=== PATIENT | male | born 1945 | race Caucasian/White ===

== ENCOUNTER 2017-01-02 09:53 | Emergency (ER) | payer MEDICARE, OTHER ==
--- NOTE | 2017-01-02 10:38 | ED ---
Abdominal Pain/Male - HPI Summary HPI Summary: Patient is a 71 yo M with a history of low back pain arrives with a CC of bilateral flank pain, back pain and head pain s/p mechanical fall this morning. He is accompanied by his 2 daughters. The fall was witnessed by his who states he hit his head. He also c/o bilateral flank pain which began on Tuesday. He was seen on Tuesday at his PCP office, who did not image the area , but gave shasha medication for penis infection. It is unclear if he had a UTI, but does not think so. He takes oxycodone daily at home and his pain is generally well controlled. His daughters state he has been "slower" lately and not able to ambulate well. Pain in bilateral kidneys was acute onset, constant and not worse with movement. C/o laceration to the back s/p fall this morning. Cardiac patient - Dr. Bermudez. CT 4 years ago and denies any chest pain or SOB today or recently. - History of Current Complaint Chief Complaint: EDGeneral Stated Complaint: FALL,BACK PAIN Time Seen by Provider: 01/02/17 10:19 Hx Obtained From: Patient Onset/Duration: Sudden Onset Timing: Constant Severity Initially: Moderate Severity Currently: Moderate Pain Intensity: 8 Pain Scale Used: 0-10 Numeric Location: Flank Radiates: Yes Radiates to: Inguinal Character: Sharp Aggravating Factor(s): Nothing Alleviating Factor(s): Nothing Associated Signs And Symptoms: Positive: Urinary Symptoms - Risk Factors Testicular Torsion: Negative Cardiac Risk Factors: Hypertension - Allergies/Home Medications Allergies/Adverse Reactions: Allergies Allergy/AdvReac Type Severity Reaction Status Date / Time Lisinopril Allergy Mild Itching Verified 01/02/17 10:03 Simvastatin [From Zocor] Allergy Unknown Verified 01/02/17 10:03 Reaction Details Home Medications: Home Medications Cyclobenzaprine TAB* [Flexeril 10 MG TAB*] 10 mg PO TID PRN 01/02/17 [History Confirmed 01/02/17] Furosemide TAB* [Lasix TAB*] 20 mg PO DAILY 01/02/17 [History Confirmed 01/02/17 ] metFORMIN* [Glucophage 500 MG TAB *] 500 mg PO DAILY 01/02/17 [History Confirmed 01/02/17] PMH/Surg Hx/FS Hx/Imm Hx Previously Healthy: Yes Endocrine/Hematology History: Reports: Hx Diabetes Denies: Hx Systemic Lupus Erythematosus Cardiovascular History: Reports: Hx Coronary Artery Disease, Hx Hypercholesterolemia, Hx Hypertension, Hx Myocardial Infarction Denies: Hx Congestive Heart Failure Respiratory History: Reports: Hx Pneumonia GI History: Reports: Other GI Disorders - umbilical hernia History: Denies: Hx Dialysis, Hx Renal Disease Musculoskeletal History: Denies: Hx Rheumatoid Arthritis Sensory History: Reports: Hx Contacts or Glasses - reading, Hx Hearing Problem - unable to hear some tones Opthamlomology History: Reports: Hx Contacts or Glasses - reading - Cancer History Hx Chemotherapy: No - Surgical History Surgery Procedure, Year, and Place: cardiac stent - Immunization History Hx Pertussis Vaccination: No Immunizations Up to Date: Unable to Obtain/Confirm Infectious Disease History: Yes Infectious Disease History: Denies: Traveled Outside the [place] in Last 30 Days - Social History Occupation: Unemployed, Retired Lives: With Family Alcohol Use: None Hx Substance Use: No Substance Use Type: Reports: None Hx Tobacco Use: Yes Smoking Status (MU): Current Every Day Smoker Type: Cigarettes Review of Systems Constitutional: Negative Negative: Fever, Chills, Fatigue, Skin Diaphoresis Eyes: Negative ENT: Negative Cardiovascular: Negative Positive: Other - bilateral flank pain Positive: dysuria, flank pain, hematuria Musculoskeletal: Negative Positive: Other - 2cm laceration to the right upper back Neurological: Negative All Other Systems Reviewed And Are Negative: Yes Physical Exam Triage Information Reviewed: Yes Vital Signs On Initial Exam: Initial Vitals Temp Pulse Resp BP Pulse Ox 97.6 F 79 16 118/58 95 01/02/17 10:03 01/02/17 10:03 01/02/17 10:03 01/02/17 10:03 01/02/17 10:03 Vital Signs Reviewed: Yes Appearance: Positive: Well-Nourished Skin: Positive: Skin Color Reflects Adequate Perfusion Head/Face: Positive: Normal Head/Face Inspection Eyes: Positive: EOMI, MARISA, Conjunctiva Clear Neck: Positive: Supple, No Lymphadenopathy Respiratory/Lung Sounds: Positive: Clear to Auscultation, Breath Sounds Present Cardiovascular: Positive: RRR Abdomen Description: Positive: Soft, Other: - CVA tenderness bilaterally Musculoskeletal: Positive: Strength/ROM Intact Neurological: Positive: Speech Normal Psychiatric: Positive: Normal AVPU Assessment: Alert Diagnostics - Vital Signs Vital Signs Temp Pulse Resp BP Pulse Ox 01/02/17 10:03 97.6 F 79 16 118/58 95 - Laboratory Result Diagrams: 01/02/17 11:14 01/02/17 11:14 Lab Statement: Any lab studies that have been ordered have been reviewed, and results considered in the medical decision making process. Abdominal Pain Fem Course/Dx - Course Course Of Treatment: Patient c/o bilateral flank pain, back pain and head pain s /p mechanical fall this morning. His daughters state he has been "slower" lately and not able to ambulate well. Pain in bilateral kidneys was acute onset , constant and not worse with movement. C/o laceration to the back s/p fall this morning. Cardiac patient - Dr. Bermudez. CT 4 years ago and denies any chest pain or SOB today or recently. He is evaluated for bilateral flank pain. Trop 0.01. CK elevated at 479. Notes to continuing pain despite his at home oxycodone. Possible decline in ambulation d/t increasing back pain without oxycodone helping. Patient on this medication for 30+ years. He is given an ambulatory challenge. Mag citrate given in ED. Patient is OK with discharge. On discharge, he appears to be walking very well and notes to feeling better per RN. - Diagnoses Differential Diagnosis/HQI/PQRI: Bowel Obstruction, Constipation, Urinary Tract Infection Provider Diagnoses: Constipation, Fall Discharge - Discharge Plan Condition: Stable Disposition: HOME Patient Education Materials: Fall Prevention (ED) Referrals: Robert Villarreal MD [Primary Care Provider] - Additional Instructions: Please follow up with your PCP within 1 week You may need to have a walker Mag citrate - 150mg - if no improvement, take another 150mg for relief. As discussed, you have a large amount of stool which may be causing some of the back pain
--- NOTE | 2017-01-02 11:14 | RAD ---
INDICATION: Trauma. COMPARISON: There are no prior studies available for comparison. TECHNIQUE: Contiguous axial sections of the brain were obtained from the skull base to the vertex without contrast. FINDINGS: The ventricles, cisterns and sulci are enlarged consistent with age-related atrophy. There are small areas of decreased density in the subcortical and periventricular white matter suggestive of mild chronic small vessel ischemic changes. No other focal abnormality or mass effect is seen. There is no evidence for hemorrhage. No significant focal osseous abnormality is seen. The visualized portion of the paranasal sinuses and mastoid air cells appear clear. IMPRESSION: 1. NO EVIDENCE FOR ACUTE INTRACRANIAL ABNORMALITY. 2. FINDINGS SUGGESTIVE OF MILD CHRONIC SMALL VESSEL ISCHEMIC CHANGES.
--- NOTE | 2017-01-02 11:17 | RAD ---
INDICATION: Trauma. COMPARISON: There are no prior studies available for comparison. TECHNIQUE: Contiguous axial sections were obtained from the skull base through the T2 vertebra. Images were reconstructed in the sagittal and coronal planes. FINDINGS: The vertebra are in normal alignment. No prevertebral soft tissue swelling or fracture is seen. At the C1-C2 level there are hypertrophic or erosive changes and calcifications most consistent with chronic arthritic change. At the C2-C3 level there is mild posterior uncinate process spurring and moderate hypertrophic changes within the facet joints. No significant spinal canal narrowing is present. There is mild bilateral neural foraminal narrowing. At the C3-C4 level there is posterior uncinate process spurring and moderate hypertrophic changes within the facet joints. There is mild spinal canal narrowing. There is moderate to severe neural foraminal narrowing on the right side and moderate neural foraminal narrowing on the left side. At the C4-C5 level there is mild posterior uncinate process spurring and mild hypertrophic changes within the facet joints. No significant spinal canal narrowing is present. There is mild bilateral neural foraminal narrowing. At the C5-C6 level there is mild to moderate posterior uncinate process spurring and moderate hypertrophic changes within the facet joints. There is mild to moderate spinal canal narrowing and mild to moderate bilateral neural foraminal narrowing. At the C6-C7 level there is mild posterior uncinate process spurring and hypertrophic changes within the facet joints. There is mild spinal canal narrowing and mild to moderate bilateral neural foraminal narrowing. IMPRESSION: 1. NO EVIDENCE FOR FRACTURE OR SUBLUXATION. 2. MODERATE DIFFUSE CERVICAL SPONDYLOSIS.
--- NOTE | 2017-01-02 11:19 | RAD ---
INDICATION: Trauma, back pain. COMPARISON: There are no prior studies available for comparison. TECHNIQUE: Contiguous axial sections were obtained beginning above the C7 vertebra and scanning through the T12 vertebra. Images were reconstructed in the sagittal and coronal planes. FINDINGS: The vertebra are in normal alignment. No fracture is seen. There is mild to moderate disc space narrowing and endplate or choking changes at multiple levels which is most prominent in the mid dorsal spine. This causes mild spinal canal narrowing at the T5-T6, T6-T7 and T7-T8 levels. IMPRESSION: 1. NO EVIDENCE FOR FRACTURE OR SUBLUXATION. 2. MILD TO MODERATE DEGENERATIVE DISC DISEASE.
--- NOTE | 2017-01-02 11:24 | RAD ---
INDICATION: Trauma, back pain. COMPARISON: Comparison is made with a prior MRI of the lumbar spine from July 28, 2005. TECHNIQUE: Contiguous axial sections were obtained beginning above the T11 vertebra and continuing through the L5-S1 disc space. Images were reconstructed in the sagittal and coronal planes. FINDINGS: The vertebra are in normal alignment. No fracture is seen. The patient is status post laminectomy at the L3 and L4 levels. At the L1-L2 level there is a mild broad-based disc bulge and mild hypertrophic changes within the facet joints. There is moderate spinal canal narrowing and mild bilateral neural foraminal narrowing. At the L2-L3 level there is posterior endplate spurring and a moderate broad-based disc bulge. This causes moderate to severe spinal canal narrowing. There are moderate hypertrophic changes within the facet joints. There is moderate bilateral neural foraminal narrowing. At the L3-L4 level the patient is status post laminectomy. There is a mild broad-based disc bulge and moderate hypertrophic changes within the facet joints. No spinal canal narrowing is present. There is moderate neural foraminal narrowing on the right side and mild neural foraminal narrowing on the left side. At the L4-L5 level the patient is status post laminectomy. There is a mild broad-based based disc bulge and moderate hypertrophic changes within the facet joints. There is mild spinal canal narrowing and moderate bilateral neural foraminal narrowing. At the L5-S1 level there is posterior endplate spurring associated with a moderate broad-based disc bulge. There are severe hypertrophic changes within the facet joints. There is lateral recess narrowing on both sides left greater than right. IMPRESSION: 1. NO EVIDENCE FOR FRACTURE OR SUBLUXATION. 2. MODERATE TO SEVERE LUMBAR SPONDYLOSIS. 3. POSTSURGICAL CHANGES.
[2017-01-02 11:31] LABS: Hematocrit 43 % (42-52); Hemoglobin 14.8 g/dl (14.0-18.0); Mean Corpuscular HGB Conc 35 g/dl (31-36); Mean Corpuscular Hemoglobin 34 pg (27-31); Mean Corpuscular Volume 97 fL (80-94); Mean Platelet Volume 8 um3 (7.4-10.4); Red Blood Count 4.41 10^6/ul (4.0-5.4); Red Cell Distribution Width 13 % (10.5-15); White Blood Count 9.2 10^3/ul (3.5-10.8)
--- NOTE | 2017-01-02 11:36 | RAD ---
INDICATION: Trauma, abdominal pain. COMPARISON: Comparison is made with a prior MRI of the abdomen from December 18, [address] angiogram of the chest from July 18, 2014. Correlation is also made with a prior CT of the pelvis from November 30, 2008. TECHNIQUE: A CT scan of the abdomen and pelvis was performed without intravenous or oral contrast. Contiguous axial sections were obtained from the lung bases through the symphysis pubis. Images were reconstructed in the coronal and sagittal planes. FINDINGS: The lung bases are clear. No pleural effusion is present. The liver and spleen are normal in size without significant focal abnormality on this noncontrast study. No calcified gallstones are seen. The pancreas appears to be within normal limits. There is a 3 cm mass in the left adrenal gland which is unchanged from the prior MRI study and therefore most consistent with a benign adenoma as previously noted. The kidneys are normal in size. There are small nonobstructing right renal calculi. No hydronephrosis is seen. The urinary bladder appears distended. There is a fluid density collection along the posterior lateral aspect of the bladder on the left side measuring 5.9 x 4.0 cm in size which has increased in size from the prior exam and previously measured 3.9 x 3.0 cm in size most consistent with a bladder diverticulum. No bladder wall thickening is seen. The aorta is normal in caliber with moderate calcific plaque present. No significant enlarged retroperitoneal lymph nodes are seen. There appears to be a large diverticulum arising from the posterior fundus of the stomach measuring 6.1 x 5.6 cm in size which is unchanged from the prior CT and MRI studies. The stomach, small and large bowel appear nondistended. The appendix is within normal limits. There is a large amount retained stool present. There is no evidence for diverticulitis or colitis. There is a periumbilical hernia containing fat. No free intraperitoneal air or fluid is seen. No significant focal osseous abnormality is seen. IMPRESSION: 1. NO EVIDENCE FOR ACUTE FINDING. 2. NONOBSTRUCTING RIGHT RENAL CALCULI. 3. 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 4. LARGE GASTRIC DIVERTICULUM, UNCHANGED. 5. LARGE AMOUNT RETAINED STOOL. 6. PERIUMBILICAL HERNIA CONTAINING FAT. 7. LARGE URINARY BLADDER DIVERTICULUM.
[2017-01-02 11:43] LABS: Ammonia 26 mol/L (16-53)
[2017-01-02 11:46] LABS: ALT 14 U/L (7-52); AST 17 U/L (13-39); Albumin 3.8 g/dL (3.2-5.2); Alkaline Phosphatase 69 U/L (34-104); Anion Gap 9 mmol/L (2-11); BUN/Creatinine Ratio 26.7 (8-20); Blood Urea Nitrogen 43 mg/dL (6-24); C Reactive Protein 131.78 mg/L (< 5.00); CO2 Carbon Dioxide 22 mmol/L (22-32); Calcium 9.4 mg/dL (8.6-10.3); Chloride 100 mmol/L (101-111); Creatine Kinase 479 U/L (10-223); EGFR African American 54.5 (>60); EGFR Non-African American 42.4 (>60); Globulin 2.4 g/dL (2-4); Glucose 164 mg/dL (70-100); Lipase < 10 U/L (11.0-82.0); Magnesium 2.2 mg/dL (1.9-2.7); Potassium 4.3 mmol/L (3.5-5.0); Sodium 131 mmol/L (133-145); Total Protein 6.2 g/dL (6.4-8.9)
[2017-01-02 11:47] LABS: Troponin I 0.01 ng/mL (<0.04)
[2017-01-02 11:50] LABS: B Type Natriuretic Peptide 42 pg/mL
[2017-01-02 12:33] LABS: Urine Bacteria Absent (Absent); Urine Bilirubin Negative (Negative); Urine Glucose 3+(>=500 mg/dL) (Negative); Urine Nitrite Negative (Negative)
[2017-01-02] MEDS ORDERED: HYDROcodone/ACETAMIN 5-325 MG* 1 TAB PO ONE (12:52)
[2017-01-02] MEDS ORDERED: Magnesium CITRATE* 300 ML BTL ONE (13:38)
[2017-01-02] MEDS ORDERED: Magnesium CITRATE* 300 ML BTL PO ONE (13:42)
[2017-01-02 14:38] VITALS: BP 129/54
== END 2017-01-02 14:48 | disposition home or self-care (01) ==
LOC: ED 09:53
DX: K59.00 Constipation, unspecified (principal); I25.2 Old myocardial infarction; F17.210 Nicotine dependence, cigarettes, uncomplicated; E11.9 Type 2 diabetes mellitus without complications; I25.10 Atherosclerotic heart disease of native coronary artery without angina pectoris; E78.00 Pure hypercholesterolemia, unspecified; I10 Essential (primary) hypertension; Z79.84 Long term (current) use of oral hypoglycemic drugs; W19.XXXA Unspecified fall, initial encounter; Y92.9 Unspecified place or not applicable; N20.0 Calculus of kidney; K42.9 Umbilical hernia without obstruction or gangrene; N32.3 Diverticulum of bladder
CPT/HCPCS: 36415; 70450; 72125; 72128; 72131; 74176; 80053; 81003; 81015; 82140; 82550; 83605; 83690; 83735; 83880; 84484; 85025; 86140; 87077; 87086; 87186; 99282; A9270-GY

== ENCOUNTER 2017-06-04 13:40 | Emergency (ER) | payer MEDICARE, OTHER ==
[2017-06-04] MEDS ORDERED: NS 0.9% 1000 ML* 1,000 ML IV ONE ×2 (14:34→15:11)
[2017-06-04 14:44] LABS: ABS Basophils 0.1 10^3/ul (0-0.2); ABS Eosinophils 0.1 10^3/ul (0-0.6); ABS Lymphocytes 1.1 10^3/ul (1.0-4.8); ABS Monocytes 0.6 10^3/ul (0-0.8); ABS Neutrophils 7.5 10^3/ul (1.5-7.7); ABS Nucleated RBC 0 10^3/ul; Eosinophil % 0.6 % (0-6); Hematocrit 33 % (42-52); Hemoglobin 11.6 g/dl (14.0-18.0); Lymphocyte % 11.4 % (25-47); Mean Corpuscular HGB Conc 36 g/dl (31-36); Mean Corpuscular Hemoglobin 34 pg (27-31); Mean Corpuscular Volume 96 fL (80-94); Mean Platelet Volume 7.4 um3 (7.4-10.4); Nucleated Red Blood Cells % 0.2; Platelet Count 235 10^3/ul (150-450); Red Blood Count 3.42 10^6/ul (4.0-5.4); Red Cell Distribution Width 14 % (10.5-15); White Blood Count 9.2 10^3/ul (3.5-10.8)
[2017-06-04 14:53] LABS: INR 0.85 (0.77-1.02)
[2017-06-04 15:04] LABS: EGFR Non-African American 63.1 (>60)
--- NOTE | 2017-06-04 15:21 | RAD ---
Indication: Syncope. Comparison: January 02, 2017 Technique: Noncontrast CT vertex of skull through foramen magnum. Report: Moderate prominence of the cerebral sulci and cerebellar fissures. Unremarkable ventricles and basal cisterns. Decreased density in the periventricular and subcortical white matter while non-specific is most likely due to chronic microangiopathy. Negative for tiwari matter white matter obscuration, intra or extra-axial hemorrhage, or mass effect. Negative for significant abnormality of the visualized orbital contents. Negative for fracture or suspicious lesion of the calvarium or skull base. Unremarkable scalp. IMPRESSION: Involutional change and stigmata of chronic small vessel ischemic disease. No acute intracranial process evident.
--- NOTE | 2017-06-04 15:24 | RAD ---
Indication: Abdominal pain, flulike symptoms. Comparison: September 16, 2014 CT. Technique: Upright AP 1356 hours Report: Unchanged mild elevation of the LEFT hemidiaphragm. No focal pulmonary lesion, compelling alveolar consolidation, pleural effusion, pneumothorax. Upper normal heart size. Unremarkable central pulmonary vasculature and mediastinal contours. Negative for free air beneath the diaphragm. IMPRESSION: No evidence for acute intrathoracic disease.
[2017-06-04 16:52] LABS: Urine Appearance Clear; Urine Blood Negative (Negative); Urine Color Yellow; Urine Ketones Trace (Negative); Urine Protein Negative (Negative); Urine Specific Gravity 1.009 (1.010-1.030); Urine Urobilinogen Negative (Negative)
[2017-06-04 17:11] VITALS: BP 113/68
[2017-06-04] MEDS ORDERED: Azithromycin TAB* 250 MG PO ONE (17:51)
--- NOTE | 2017-06-04 18:05 | ED ---
Hector Carcamo Elizabeth, scribed for Nawaf Zambrano on 06/04/17 at 1456 . Dizziness - HPI Summary HPI Summary: This patient is a 71 year old M presenting to [facility] following a syncopal episode lasting a few seconds and resulting in a fall. Symptoms aggravated by nothing. Symptoms alleviated by nothing. Patient reports dizziness, fatigue, loss of appetite, chest pain that began 1 day ago. Patient denies diarrhea. Patient has history of diabetes. - History Of Current Complaint Chief Complaint: EDChestPainROMI Stated Complaint: ABD PAIN,FLU LIKE SYMPTOMS Time Seen by Provider: 06/04/17 14:23 Hx Obtained From: Patient, Family/Bicycle Racer Onset/Duration: Still Present Timing: Days Severity Currently: Mild Character: Lightheaded, Dizzy Aggravating Factor(s): Nothing Alleviating Factor(s): Nothing Associated Signs And Symptoms: Positive: Chest Pain, Decreased Oral Intake. Negative: Diarrhea - Allergies/Home Medications Allergies/Adverse Reactions: Allergies Allergy/AdvReac Type Severity Reaction Status Date / Time lisinopril Allergy Mild Itching Verified 06/04/17 14:15 simvastatin Allergy Unknown Verified 06/04/17 14:15 Reaction Details PMH/Surg Hx/FS Hx/Imm Hx Endocrine/Hematology History: Reports: Hx Diabetes Denies: Hx Systemic Lupus Erythematosus Cardiovascular History: Reports: Hx Coronary Artery Disease, Hx Hypercholesterolemia, Hx Hypertension, Hx Myocardial Infarction Denies: Hx Congestive Heart Failure Respiratory History: Reports: Hx Pneumonia GI History: Reports: Other GI Disorders - umbilical hernia History: Denies: Hx Dialysis, Hx Renal Disease Musculoskeletal History: Denies: Hx Rheumatoid Arthritis Sensory History: Reports: Hx Contacts or Glasses - reading, Hx Hearing Problem - unable to hear some tones Opthamlomology History: Reports: Hx Contacts or Glasses - reading - Cancer History Hx Chemotherapy: No - Surgical History Surgery Procedure, Year, and Place: cardiac stent Infectious Disease History: No Infectious Disease History: Denies: Traveled Outside the [place] in Last 30 Days - Family History Known Family History: Positive: None - Social History Alcohol Use: None Hx Substance Use: No Substance Use Type: Reports: None Hx Tobacco Use: Yes Smoking Status (MU): Current Every Day Smoker Type: Cigarettes Review of Systems Positive: Fatigue Positive: Chest Pain Positive: Other - loss of appetite. Negative: Diarrhea Neurological: Other - POSITIVE DIZZINESS Positive: Syncope All Other Systems Reviewed And Are Negative: Yes Physical Exam - Summary Physical Exam Summary: Appearance: Well appearing, no pain distress Skin: warm, dry, reflects adequate perfusion Head/face: normal Eyes: EOMI, MARISA ENT: normal Neck: supple, non-tender Respiratory: CTA, breath sounds present Cardiovascular: RRR, pulses symmetrical ~ Abdomen: non-tender, soft Bowel: present Musculoskeletal: normal, strength/ROM intact Neuro: normal, sensory motor intact, A&Ox3 Triage Information Reviewed: Yes Vital Signs On Initial Exam: Initial Vitals Temp Pulse Resp BP Pulse Ox 97.9 F 101 18 113/79 96 06/04/17 13:55 06/04/17 13:55 06/04/17 13:55 06/04/17 13:55 06/04/17 13:55 Vital Signs Reviewed: Yes Diagnostics - Vital Signs Vital Signs Temp Pulse Resp BP Pulse Ox 06/04/17 14:21 91 18 113/61 95 06/04/17 13:55 97.9 F 101 18 113/79 96 - Laboratory Lab Results: Lab Results 06/04/17 06/04/17 06/04/17 Range/Units 14:25 14:25 14:25 WBC 9.2 (3.5-10.8) 10^3/ul RBC 3.42 L (4.0-5.4) 10^6/ul Hgb 11.6 L (14.0-18.0) g/dl Hct 33 L (42-52) % MCV 96 H (80-94) fL MCH 34 H (27-31) pg MCHC 36 (31-36) g/dl RDW 14 (10.5-15) % Plt Count 235 (150-450) 10^3/ul MPV 7.4 (7.4-10.4) um3 Neut % (Auto) 81.0 (38-83) % Lymph % (Auto) 11.4 L (25-47) % Meriwether % (Auto) 6.2 (0-7) % Eos % (Auto) 0.6 (0-6) % Baso % (Auto) 0.8 (0-2) % Absolute Neuts (auto) 7.5 (1.5-7.7) 10^3/ul Absolute Lymphs (auto) 1.1 (1.0-4.8) 10^3/ul Absolute Monos (auto) 0.6 (0-0.8) 10^3/ul Absolute Eos (auto) 0.1 (0-0.6) 10^3/ul Absolute Basos (auto) 0.1 (0-0.2) 10^3/ul Absolute Nucleated RBC 0 10^3/ul Nucleated RBC % 0.2 INR (Anticoag Therapy) 0.85 (0.77-1.02) APTT 27.0 (26.0-36.3) seconds Sodium 129 L (139-145) mmol/L Potassium 4.2 (3.5-5.0) mmol/L Chloride 97 L (101-111) mmol/L Carbon Dioxide 22 (22-32) mmol/L Anion Gap 10 (2-11) mmol/L BUN 23 (6-24) mg/dL Creatinine 1.14 (0.67-1.17) mg/dL Est GFR ( Amer) 81.2 (>60) Est GFR (Non-Af Amer) 63.1 (>60) BUN/Creatinine Ratio 20.2 H (8-20) Glucose 202 H (70-100) mg/dL Lactic Acid (0.5-2.0) mmol/L Calcium 8.3 L (8.6-10.3) mg/dL Total Bilirubin 0.50 (0.2-1.0) mg/dL AST 15 (13-39) U/L ALT 15 (7-52) U/L Alkaline Phosphatase 54 (34-104) U/L Myoglobin 39.0 (17.4-105.7) ng/mL Troponin I 0.01 (<0.04) ng/mL Total Protein 5.6 L (6.4-8.9) g/dL Albumin 3.4 (3.2-5.2) g/dL Globulin 2.2 (2-4) g/dL Albumin/Globulin Ratio 1.5 (1-3) Urine Color Urine Appearance Urine pH (5-9) Ur Specific Winston (1.010-1.030) Urine Protein (Negative) Urine Ketones (Negative) Urine Blood (Negative) Urine Nitrate (Negative) Urine Bilirubin (Negative) Urine Urobilinogen (Negative) Ur Leukocyte Esterase (Negative) Urine Glucose (Negative) Influenza A (Rapid) (Negative) Influenza B (Rapid) (Negative) 06/04/17 06/04/17 06/04/17 Range/Units 14:25 15:13 16:40 WBC (3.5-10.8) 10^3/ul RBC (4.0-5.4) 10^6/ul Hgb (14.0-18.0) g/dl Hct (42-52) % MCV (80-94) fL MCH (27-31) pg MCHC (31-36) g/dl RDW (10.5-15) % Plt Count (150-450) 10^3/ul MPV (7.4-10.4) um3 Neut % (Auto) (38-83) % Lymph % (Auto) (25-47) % Meriwether % (Auto) (0-7) % Eos % (Auto) (0-6) % Baso % (Auto) (0-2) % Absolute Neuts (auto) (1.5-7.7) 10^3/ul Absolute Lymphs (auto) (1.0-4.8) 10^3/ul Absolute Monos (auto) (0-0.8) 10^3/ul Absolute Eos (auto) (0-0.6) 10^3/ul Absolute Basos (auto) (0-0.2) 10^3/ul Absolute Nucleated RBC 10^3/ul Nucleated RBC % INR (Anticoag Therapy) (0.77-1.02) APTT (26.0-36.3) seconds Sodium (139-145) mmol/L Potassium (3.5-5.0) mmol/L Chloride (101-111) mmol/L Carbon Dioxide (22-32) mmol/L Anion Gap (2-11) mmol/L BUN (6-24) mg/dL Creatinine (0.67-1.17) mg/dL Est GFR ( Amer) (>60) Est GFR (Non-Af Amer) (>60) BUN/Creatinine Ratio (8-20) Glucose (70-100) mg/dL Lactic Acid 1.2 (0.5-2.0) mmol/L Calcium (8.6-10.3) mg/dL Total Bilirubin (0.2-1.0) mg/dL AST (13-39) U/L ALT (7-52) U/L Alkaline Phosphatase (34-104) U/L Myoglobin (17.4-105.7) ng/mL Troponin I (<0.04) ng/mL Total Protein (6.4-8.9) g/dL Albumin (3.2-5.2) g/dL Globulin (2-4) g/dL Albumin/Globulin Ratio (1-3) Urine Color Yellow Urine Appearance Clear Urine pH 5.0 (5-9) Ur Specific Winston 1.009 L (1.010-1.030) Urine Protein Negative (Negative) Urine Ketones Trace A (Negative) Urine Blood Negative (Negative) Urine Nitrate Negative (Negative) Urine Bilirubin Negative (Negative) Urine Urobilinogen Negative (Negative) Ur Leukocyte Esterase Negative (Negative) Urine Glucose 3+(>=500 mg/dl) A (Negative) Influenza A (Rapid) Negative (Negative) Influenza B (Rapid) Negative (Negative) 06/04/17 Range/Units 17:16 WBC (3.5-10.8) 10^3/ul RBC (4.0-5.4) 10^6/ul Hgb (14.0-18.0) g/dl Hct (42-52) % MCV (80-94) fL MCH (27-31) pg MCHC (31-36) g/dl RDW (10.5-15) % Plt Count (150-450) 10^3/ul MPV (7.4-10.4) um3 Neut % (Auto) (38-83) % Lymph % (Auto) (25-47) % Meriwether % (Auto) (0-7) % Eos % (Auto) (0-6) % Baso % (Auto) (0-2) % Absolute Neuts (auto) (1.5-7.7) 10^3/ul Absolute Lymphs (auto) (1.0-4.8) 10^3/ul Absolute Monos (auto) (0-0.8) 10^3/ul Absolute Eos (auto) (0-0.6) 10^3/ul Absolute Basos (auto) (0-0.2) 10^3/ul Absolute Nucleated RBC 10^3/ul Nucleated RBC % INR (Anticoag Therapy) (0.77-1.02) APTT (26.0-36.3) seconds Sodium (139-145) mmol/L Potassium (3.5-5.0) mmol/L Chloride (101-111) mmol/L Carbon Dioxide (22-32) mmol/L Anion Gap (2-11) mmol/L BUN (6-24) mg/dL Creatinine (0.67-1.17) mg/dL Est GFR ( Amer) (>60) Est GFR (Non-Af Amer) (>60) BUN/Creatinine Ratio (8-20) Glucose (70-100) mg/dL Lactic Acid (0.5-2.0) mmol/L Calcium (8.6-10.3) mg/dL Total Bilirubin (0.2-1.0) mg/dL AST (13-39) U/L ALT (7-52) U/L Alkaline Phosphatase (34-104) U/L Myoglobin (17.4-105.7) ng/mL Troponin I 0.01 (<0.04) ng/mL Total Protein (6.4-8.9) g/dL Albumin (3.2-5.2) g/dL Globulin (2-4) g/dL Albumin/Globulin Ratio (1-3) Urine Color Urine Appearance Urine pH (5-9) Ur Specific Winston (1.010-1.030) Urine Protein (Negative) Urine Ketones (Negative) Urine Blood (Negative) Urine Nitrate (Negative) Urine Bilirubin (Negative) Urine Urobilinogen (Negative) Ur Leukocyte Esterase (Negative) Urine Glucose (Negative) Influenza A (Rapid) (Negative) Influenza B (Rapid) (Negative) Result Diagrams: 06/04/17 14:25 06/04/17 14:25 Lab Statement: Any lab studies that have been ordered have been reviewed, and results considered in the medical decision making process. - Radiology CXR Xray Interpretation: No Acute Changes - IMPRESSION: No evidence for acute intrathoracic disease. Dr. Zambrano has reviewed this report. Radiology Interpretation Completed By: Radiologist - CT Brain CT CT Interpretation: Positive (See Comments) - IMPRESSION: Involutional change and stigmata of chronic small vessel ischemic disease. No acute intracranial process evident. Dr. Zambrano has reviewed this report. CT Interpretation Completed By: Radiologist - EKG 13:59 Cardiac Rate: NL - at 90 BPM EKG Rhythm: Sinus Rhythm EKG Interpretation: NSR, poor R wave progression Dizzy Course/Dx - Course Course Of Treatment: This patient is a 71 year old M presenting to [facility] following a syncopal episode and chest pain. Patient reports dizziness, fatigue , loss of appetite, chest pain that began 1 day ago. Patient will be discharged home with diagnosis of dizziness, syncope, and atypical bronchitis. Patient is advised to follow up with his primary care physician in 3-4 days. The patient is agreeable with this plan. - Diagnoses Differential Diagnosis/HQI/PQRI: CVA, Hypovolemia, Myocardial Infarction, Transient Ischemic Attack, Vasovagal Reaction Provider Diagnoses: Bronchitis, Dizziness, Syncope Discharge - Sign-Out/Discharge Documenting (check all that apply): Discharge/Admit/Transfer - Discharge Plan Condition: Stable Disposition: HOME Prescriptions: Azithromycin TAB* [Zithromax TAB (Z-CAMILLA) 250 mg #6 tabs] 250 mg PO DAILY #4 tab Patient Education Materials: Syncope (ED), Acute Bronchitis (ED), Dizziness (ED ) Referrals: Robert Villarreal MD [Primary Care Provider] - 3 Days (Follow up with primary care physician in 3-4 days.) Additional Instructions: Follow up with primary care physician in 3-4 days. Return to the emergency department with any new or worsening symptoms. - Billing Disposition and Condition Condition: STABLE Disposition: HOME The documentation as recorded by the Hector pittman Elizabeth accurately reflects the service I personally performed and the decisions made by Kenya oleary Emmanuel.
== END 2017-06-04 18:07 | disposition home or self-care (01) ==
LOC: ED 13:40
DX: J40 Bronchitis, not specified as acute or chronic (principal); R42 Dizziness and giddiness; R55 Syncope and collapse; R53.83 Other fatigue; E11.9 Type 2 diabetes mellitus without complications; Z79.84 Long term (current) use of oral hypoglycemic drugs; I25.10 Atherosclerotic heart disease of native coronary artery without angina pectoris; I10 Essential (primary) hypertension; I21.9 Acute myocardial infarction, unspecified; Z95.5 Presence of coronary angioplasty implant and graft; E78.00 Pure hypercholesterolemia, unspecified; Z88.8 Allergy status to other drugs, medicaments and biological substances; F17.210 Nicotine dependence, cigarettes, uncomplicated
CPT/HCPCS: 36415; 70450; 71045; 80053; 81003; 83605; 83874; 84484; 85025; 85610; 85730; 87502; 93005; 96360; 96361; 99283; A9270-GY

== ENCOUNTER 2017-11-03 11:32 | Inpatient (IN) | payer MEDICARE, OTHER ==
--- NOTE | 2017-11-03 12:35 | ED ---
Complex/Multi-Sys Presentation - HPI Summary HPI Summary: A 71 y/o M presents to ED with c/o weakness onset for past month and worsening. Associated sx: vomiting, decreased oral appetite, fatigue, bilat pedal edema, low blood values taken at [facility] [place]. Denies hematemesis, melena. Pt has chronic constipation. His states that his blood sugar yesterday was 66. ED provider spoke with Dr. Villarreal, PCP, prior to patient arrival and stated he had concerns re: GI bleed as pt is more anemic than usual. Pt takes a daily baby aspirin. - History Of Current Complaint Chief Complaint: EDWeakness Time Seen by Provider: 11/03/17 11:45 Hx Obtained From: Patient, Family/Bsw Onset/Duration: Lasting Weeks, Still Present Timing: Constant Severity Currently: Moderate Severity Initially: Moderate Associated Signs And Symptoms: Positive: Edema - bilat pedal edema, Vomiting, Decreased Oral Intake, Other - pos: fatigue; low blood lab values. neg: melena.. Negative: Hematemesis - Allergies/Home Medications Allergies/Adverse Reactions: Allergies Allergy/AdvReac Type Severity Reaction Status Date / Time lisinopril Allergy Mild Itching Verified 11/03/17 12:04 simvastatin Allergy Unknown Verified 11/03/17 12:04 Reaction Details Home Medications: Home Medications Canagliflozin (NF) [Invokana (NF)] 100 mg PO DAILY 11/03/17 [History Confirmed 11/03/17] Rosuvastatin Calcium [Crestor] 10 mg PO DAILY 11/03/17 [History Confirmed ] PMH/Surg Hx/FS Hx/Imm Hx Previously Healthy: No Endocrine/Hematology History: Reports: Hx Diabetes Denies: Hx Systemic Lupus Erythematosus Cardiovascular History: Reports: Hx Coronary Artery Disease, Hx Hypercholesterolemia, Hx Hypertension, Hx Myocardial Infarction Denies: Hx Congestive Heart Failure Respiratory History: Reports: Hx Pneumonia GI History: Reports: Other GI Disorders - umbilical hernia History: Denies: Hx Dialysis, Hx Renal Disease Musculoskeletal History: Denies: Hx Rheumatoid Arthritis Sensory History: Reports: Hx Contacts or Glasses - reading, Hx Hearing Problem - unable to hear some tones Opthamlomology History: Reports: Hx Contacts or Glasses - reading - Cancer History Hx Chemotherapy: No - Surgical History Surgery Procedure, Year, and Place: cardiac stent - Immunization History Immunizations Up to Date: Yes Infectious Disease History: No Infectious Disease History: Denies: Traveled Outside the [place] in Last 30 Days - Family History Known Family History: Positive: Cardiac Disease - Social History Occupation: Retired Lives: With Family Alcohol Use: None Hx Substance Use: No Substance Use Type: Reports: None Hx Tobacco Use: Yes Smoking Status (MU): Former Smoker Type: Cigarettes Review of Systems Positive: Fatigue, Other - pos: decreased oral intake Positive: Other - low blood values Positive: Vomiting, Other - neg: hematemesis, melena Positive: Edema - bilat pedal edema Positive: Weakness All Other Systems Reviewed And Are Negative: Yes Physical Exam - Summary Physical Exam Summary: Appearance: The patient is well-nourished in no acute distress and in no acute pain. Skin: The skin is warm and dry and skin color reflects adequate perfusion. HEENT: The head is normocephalic and atraumatic. The pupils are equal and reactive. The conjunctivae are clear and without drainage. Nares are patent and without drainage. Mouth reveals moist mucous membranes and the throat is without erythema and exudate. The external ears are intact. The ear canals are patent and without drainage. The tympanic membranes are intact. Neck: the neck is supple with full range of motion and non-tender. There are no carotid bruits. There is no neck vein distension. Respiratory: Chest is non-tender. Lungs are clear to auscultation and breath sounds are symmetrical and equal. Cardiovascular: Borderline tachy. There is no murmur or rub auscultated. There is moderate peripheral edema. Pulses are symmetrical and equal. Abdomen: The abdomen is soft and non-tender. There are normal bowel sounds heard in all four quadrants and there is no organomegaly palpated. Musculoskeletal: There is no back tenderness noted. Extremities are non-tender with full range of motion. There is good capillary refill. There is moderate peripheral edema. No calf tenderness elicited. Neurological: Patient is alert and oriented to person, place and time. The patient has symmetrical motor strength in all four extremities. Cranial nerves are grossly intact. Deep tendon reflexes are symmetrical and equal in all four extremities. Psychiatric: The patient has an appropriate affect and does not exhibit any anxiety or depression. Triage Information Reviewed: Yes Vital Signs On Initial Exam: Initial Vitals Temp Pulse Resp BP Pulse Ox 97.8 F 95 16 131/64 98 11/03/17 11:42 11/03/17 11:42 11/03/17 11:42 11/03/17 11:42 11/03/17 11:42 Vital Signs Reviewed: Yes Diagnostics - Vital Signs Vital Signs Temp Pulse Resp BP Pulse Ox 11/03/17 11:42 97.8 F 95 16 131/64 98 - Laboratory Result Diagrams: 11/03/17 12:44 11/03/17 12:44 Lab Statement: Any lab studies that have been ordered have been reviewed, and results considered in the medical decision making process. - EKG 1248 Cardiac Rate: NL - 82bpm EKG Rhythm: Sinus Rhythm EKG Interpretation: RBBB, LAFB EKG Comparison: No Significant Change - from 06/04/2017 Complex Multi-Symp Course/Dx Course Of Treatment: Mr. Reynoso presented essentially complaining of weakness onset about a month ago gradually worsening to the point where he can barely take care of himself now. He hasn't been eating because of no appetite. He was washed out looking with borderline tachycardia here. His labs revealed mild renal failure and the hospitalist were contacted for admission. - Diagnoses Provider Diagnoses: Acute renal failure - Physician Notifications Discussed Care Of Patient With: Bren Flannery - Hospitalist Time Discussed With Above Provider: 15:11 Instructed by Provider To: Admit As Inpatient Discharge - Sign-Out/Discharge Documenting (check all that apply): Patient Departure - admit - Discharge Plan Condition: Stable Disposition: ADMITTED TO [facility] - Billing Disposition and Condition Condition: STABLE Disposition: Admitted to [facility] - Attestation Statements Document Initiated by Scribe: Yes Documenting Scribe: Lili Wilkins Provider For Whom Scribe is Documenting (Include Credential): Dr. Prabhakar Singh MD Scribe Attestation: I, Lili Wilkins, scribed for Dr. Prabhakar Singh MD on 11/03/17 at 1800. Scribe Documentation Reviewed: Yes Provider Attestation: The documentation as recorded by the Lili pittman accurately reflects the service I personally performed and the decisions made by me, Dr. Prabhakar Singh MD
[2017-11-03 13:01] LABS: ABS Basophils 0.1 10^3/ul (0-0.2); ABS Eosinophils 0.1 10^3/ul (0-0.6); ABS Lymphocytes 0.8 10^3/ul (1.0-4.8); ABS Monocytes 0.5 10^3/ul (0-0.8); ABS Neutrophils 8.6 10^3/ul (1.5-7.7); ABS Nucleated RBC 0 10^3/ul; Eosinophil % 0.6 % (0-6); Hematocrit 26 % (42-52); Hemoglobin 9.2 g/dl (14.0-18.0); Lymphocyte % 8.1 % (25-47); Mean Corpuscular HGB Conc 36 g/dl (31-36); Mean Corpuscular Hemoglobin 34 pg (27-31); Mean Corpuscular Volume 94 fL (80-94); Mean Platelet Volume 7.4 um3 (7.4-10.4); Nucleated Red Blood Cells % 0; Platelet Count 282 10^3/ul (150-450); Red Blood Count 2.72 10^6/ul (4.00-5.40); Red Cell Distribution Width 14 % (10.5-15)
[2017-11-03 13:21] LABS: EGFR Non-African American 16.3 (>60)
[2017-11-03 13:22] LABS: INR 1.02 (0.77-1.02)
[2017-11-03 15:01] LABS: Urine Appearance Clear; Urine Blood 1+ (Negative); Urine Color Yellow; Urine Ketones Trace (Negative); Urine Protein 1+(30 mg/dL) (Negative); Urine Specific Gravity 1.013 (1.010-1.030); Urine Urobilinogen Negative (Negative)
[2017-11-03 15:04] LABS: Urine Red Blood Cell Trace(0-2/hpf) (Absent); Urine White Blood Cell Trace(0-5/hpf) (Absent)
[2017-11-03] MEDS ORDERED: Dextrose 50% Syringe 50 ML* 25 GM/50 ML SYRINGE IV PUSH PRN (16:02)
[2017-11-03] MEDS ORDERED: oxyCODONE/Acetamin 5/325 MG* TAB PO PRN (16:10)
[2017-11-03] MEDS ORDERED: NS 0.9% 1000 ML* 1,000 ML IV SCH (16:15)
[2017-11-03 16:49] LABS: Hematocrit for Retic CNT 26 % (42-52); Immature Retic Fraction 0.52; RBC Retic Count 2.75 10^6/ul (4.6-6.2)
--- NOTE | 2017-11-03 17:09 | RAD ---
Indication: Acute renal failure. Comparison: January 02, 2017 CT. Technique: Renal ultrasound. Report: 13.1 x 7.3 x 6.6 cm RIGHT kidney. 14.6 x 5.5 x 6.1 cm LEFT kidney. No significant interval change in size of the kidneys compared with the 2017 CT. Normal bilateral renal cortical echogenicity. Normal range cortical thickness. No conspicuous stones or hydronephrosis. Negative for focal renal lesions. IMPRESSION: #. Negative renal ultrasound.
[2017-11-03] MEDS: Insulin LISPRO* 1 UNITS UNIT SUBCUT SCH (18:04)
[2017-11-03] MEDS ORDERED: Lactulose* 15 ML UDC PO PRN (19:55)
[2017-11-03 20:04] LABS: Hematocrit 28 % (42-52); Hemoglobin 9.9 g/dl (14.0-18.0)
[2017-11-03] MEDS: Docusate CAP* 100 MG PO SCH (20:56)
[2017-11-03] MEDS: Senna TAB PO SCH (20:56)
[2017-11-03] MEDS: Metoprolol Tartrate TAB* 50 mg PO SCH (20:56)
[2017-11-03] MEDS ORDERED: Sodium Citrate/Citric Acid* 15 ML UDC PO SCH (21:00)
--- NOTE | 2017-11-03 21:23 | HP ---
CC: Dr. Villarreal; Dr. Ledesma; Dr. Marvin * HISTORY AND PHYSICAL: DATE OF ADMISSION: 11/03/17 PRIMARY CARE PROVIDER: Dr. Villarreal. CONSULTING GENERAL ACTIVITIES THERAPIST: Dr. Ledesma. MY ATTENDING PHYSICIAN WHILE IN THE HOSPITAL: Bren Flannery DO * (report dictated by Tanner Pulido NP) CHIEF COMPLAINT: 1. Weakness. 2. Fatigue. 3. Abnormal laboratory data. HISTORY OF PRESENT ILLNESS: Mr. Reynoso is a 71-year-old male patient. He has a history of CAD, NM, diabetes, hyperlipidemia, and hypertension, also a former smoker. He has a history of chronic back pain for which he takes large amounts of ibuprofen. In addition to this, he takes Tylenol 3 to 4 times a day minimally. He presents today because he went to his primary with the chief complaint of just not feeling well, feeling fatigued, having nausea, vomiting, decreased appetite, confusion, feeling just weak. His PCP was concerned. He checked labs and it was noted that his hemoglobin had dropped. In 2014, his hemoglobin had been right around 14 and 13. In May of this year, it was 11.6. His hemoglobin today was 9.2. He was concerned because of the amount of ibuprofen that the patient was taking that he may have a slow bleeding ulcer and he was sent to the hospital for evaluation and here, it was noted that he did appear to be in acute renal failure. The patient again is feeling that he is just fatigued, the family reports there is confusion. He did have episodes of nausea and vomiting. There has been difficulty with urination at times with hesitancy and frequency. There is no dysuria. There was no lower abdominal pain or flank pain. He denied having any chest pain or shortness of breath. There were also reports of increasing lower extremity swelling about 3 weeks ago and the patient was also recently placed on an increased dose of furosemide. Because of these metabolic derangements and the fact that he appeared to be in acute renal failure with a low H and H, we were asked to evaluate for admission. PAST MEDICAL HISTORY: Significant for: 1. CAD. 2. Diabetes. 3. Hypertension. 4. Hyperlipidemia. 5. NM. 6. Tobacco abuse in the past. 7. Chronic back pain. PAST SURGICAL HISTORY: 1. He has had a laminectomy x2. 2. Tonsillectomy. 3. Hernia repair. 4. Cardiac catheterization with stenting. MEDICATIONS: Home medications according to the list that we were able to obtain include: 1. Lopressor 50 mg p.o. b.i.d. 2. Lisinopril 2.5 mg daily. 3. Aspirin 81 mg daily. 4. Percocet 1 tablet every 4 hours as needed. 5. Crestor 10 mg p.o. daily. 6. Nitroglycerin 0.4 mg sublingual q.5 minutes p.r.n. chest pain x3. 7. Motrin 600 mg p.o. t.i.d. as needed. 8. Lasix 20 mg p.o. daily. 9. Glucophage 1000 mg p.o. b.i.d. 10. Glucotrol 5 mg p.o. daily. 11. Invokana 100 mg p.o. daily. ALLERGIES TO MEDICATIONS: Include LISINOPRIL and SIMVASTATIN. FAMILY HISTORY: His mother had heart disease. Father had a history of colon cancer. SOCIAL HISTORY: He used to be a 3 pack a day smoker, quit in 2011. He does not drink alcohol. Surrogate decision maker is his . REVIEW OF SYSTEMS: There is a documented fever. He denied any significant weight change. No double vision. There was no ear discharge. Denies having any rhinorrhea. There is no sore throat. No thyroid enlargement. He denied having any chest pain. There was no orthopnea. There is no nocturnal dyspnea. He denied having any abdominal pain. There was no dysuria. No frequency. There is hesitancy. There is no seizure. No loss of consciousness. No pruritus and no skin ulcerations. Review of 14 systems was completed, all others negative. PHYSICAL EXAMINATION GENERAL: At this time, Mr. Reynoso is a 71-year-old male patient. He is sitting in the ED stretcher. He appears to be well nourished, well developed. He is chronically ill appearing. He does not appear to be in any acute distress. VITAL SIGNS: Blood pressure 122/66 with a pulse of 93, respirations 18, his O2 saturation is 93%, temperature 97.8. HEENT: Head: Atraumatic and normocephalic. Eyes: EOMs are intact. Sclerae anicteric and not pale. Throat: Oral mucosa appears to be dry. No oropharyngeal erythema. NECK: Supple. LUNGS: Clear to auscultation bilaterally. There are no wheezes, rales, or rhonchi. HEART: Sounds S1, S2. Regular rate and rhythm. No murmurs, rubs, or gallops. ABDOMEN: Soft, flat, nontender. No CVA tenderness is present. EXTREMITIES: Pulses were 2+ throughout. He did have 2+ pitting edema in the lower extremities. 5/5 strength. NEUROLOGICAL: He is awake. He is alert. He is oriented x3. Tongue midline. Assistant Art Director were equal. No gross focal deficits. SKIN: Intact. He does have bruising noted over his upper extremities and lower extremities. LABORATORY DATA/DIAGNOSTIC STUDIES: Labs today, WBC 10.0, RBC of 2.72, hemoglobin 9.2, hematocrit 26, platelet count of 282,000. INR 1.02. Sodium 135 , potassium 4.2, chloride 104, bicarb 19, BUN 84, creatinine of 3.68, glucose 165. Lactic 0.7. Calcium 8.5. Mag 1.9. Total bili 0.3, AST 22, ALT 19, alk phos 62. CK 526. Troponin 0.02. CRP 124. BNP of 45. Total protein of 5.2. TSH of 0.68. Urine showed trace blood, 1+ protein, trace ketones. He had an EKG obtained today, which does show a normal sinus rhythm, rate of 82 with a left anterior fascicular block along with a right bundle-branch block, which was reviewed with previous EKGs, it is similar. Old medical records were reviewed. ASSESSMENT AND PLAN: Mr. Reynoso is a 71-year-old male patient coming in to the ED today with a month's complaint of fatigue, weakness, confusion, nausea, and vomiting and just not feeling well. On evaluation today, he was noted to be anemic. In addition to this, acute renal failure. He will be admitted under inpatient status for: 1. Acute renal failure. This is just probably the cause of his symptoms. He does appear to be uremic. His BUN is over 80. I suspect that he has probably been having slow deterioration. This could be secondary to the ibuprofen usage , the recent increase in Lasix. In addition to this, he was bladder scanned down here and had about 500 cc of urine in his bladder. I did touch base with Dr. Ledesma. The plan will be to send off a FENa, place a Michelle catheter, start him on Bicitra for the low bicarb, hold nephrotoxic agents, hydrate the patient and continue to follow. 2. Anemia. This could be secondary to the acute renal failure; however, given the fact that he has been taking a significant amount of ibuprofen, certainly we will go ahead and send off a stool occult, iron studies, B12 studies, retic count, LDH and we will continue to follow his H and H's. 3. Mild elevation of CK. Etiology is unclear. It could be secondary to his statin use, which I am going to be stopping. The patient does list the fact that he has been not very ambulatory which certainly could be causing some muscle wasting. I am going to hydrate him and we will trend this number. 4. Coronary artery disease. He is on his beta-bee. I am holding his aspirin in the setting of possible bleeding. If the Hemoccult is negative I will get him back on the aspirin. 5. Diabetes. We will put him on a lispro sliding scale. 6. Hypertension. I am just going to continue his metoprolol, will hold his lisinopril. 7. Hyperlipidemia. Holding statin. Following his CK. 8. DVT prophylaxis. SCDs at this point until I have a negative Hemoccult. If the Hemoccult is negative, I will place him on heparin subcu. 9. Code status. Full code. 10. Fluids, electrolytes, and nutrition. He can have a renal diet. TIME SPENT: Time spent on admission 50 minutes, greater than half of the time spent [id number] with the patient obtaining my history and physical, other half of the time spent going over the plan of care with the patient and implementing the plan of care. I did discuss the plan of care with my attending , Dr. Flannery; she is in agreement. TANNER PULIDO, HARLAN [id number]/[facility] #: [id number] RAYRAY
[2017-11-04] MEDS: Melatonin 3 MG TAB PO PRN ×2 (00:49→20:41)
[2017-11-04 08:07] LABS: ABS Basophils 0.1 10^3/ul (0-0.2); ABS Eosinophils 0 10^3/ul (0-0.6); ABS Lymphocytes 0.8 10^3/ul (1.0-4.8); ABS Monocytes 0.8 10^3/ul (0-0.8); ABS Neutrophils 13.1 10^3/ul (1.5-7.7); ABS Nucleated RBC 0 10^3/ul; Eosinophil % 0.3 % (0-6); Hematocrit 27 % (42-52); Hemoglobin 9.5 g/dl (14.0-18.0); Lymphocyte % 5.7 % (25-47); Mean Corpuscular HGB Conc 35 g/dl (31-36); Mean Corpuscular Hemoglobin 33 pg (27-31); Mean Corpuscular Volume 93 fL (80-94); Mean Platelet Volume 7.4 um3 (7.4-10.4); Nucleated Red Blood Cells % 0; Platelet Count 316 10^3/ul (150-450); Red Blood Count 2.89 10^6/ul (4.00-5.40); Red Cell Distribution Width 14 % (10.5-15); White Blood Count 14.8 10^3/ul (3.5-10.8)
[2017-11-04 08:27] LABS: EGFR Non-African American 19.8 (>60)
[2017-11-04] MEDS ORDERED: Aspirin EC TAB* 81 MG TAB.EC PO SCH (09:00)
[2017-11-04] MEDS ORDERED: Rosuvastatin (NF) 5 MG TAB PO SCH (09:00)
[2017-11-04] MEDS: Docusate CAP* 100 MG PO SCH ×2 (09:05→20:41)
[2017-11-04] MEDS: Metoprolol Tartrate TAB* 50 mg PO SCH ×2 (09:05→20:41)
[2017-11-04] MEDS: Sodium Citrate/Citric Acid* 15 ML UDC PO SCH ×3 (09:06→20:43)
[2017-11-04] MEDS: Insulin LISPRO* 1 UNITS UNIT SUBCUT SCH ×3 (09:08→16:53)
[2017-11-04] MEDS: Acetaminophen TAB* 325 MG PO PRN (12:49)
--- NOTE | 2017-11-04 12:55 | CONS ---
GASTROENTEROLOGY CONSULT DATE: 11/04/17 CONSULTING PHYSICIAN: Felipa Wilson REASON FOR CONSULT: Drop in hemoglobin of 4 g in a man with multiple medical problems, taking large amounts of ibuprofen. HISTORY OF PRESENT ILLNESS: This 71-year-old man saw his primary, Dr Villarreal, yesterday and was complaining of fatigue. His hemoglobin was in the mid 9s compared to 13 a couple of years ago. He was sent to the emergency room and admitted. His BUN was 80, creatinine 3.3. Stool was heme negative. His assists in the history as he says very little and she says that it is his characteristic. He has been having upper abdominal pain, especially after sizeable meals and taking increasing amounts of Tums. His appetite overall described as less. He will vomit after substantial meals and is complaining of nausea at other times also. He has never been on a prescription acid bee or any other prescription stomach medication. He is not on any specified diet. He may have lost a few pounds this year, but he has been substantial overweight for quite some time. He is substantially constipated and has been taking sporadic doses of MiraLax, senna, and other OTC agents. His bowels have not been black at any time. There has been no overt bleeding. He has had [address] Romero, removing numerous polyps. He has never had an upper endoscopy, though CT scan at some point showed gastric diverticulum. PAST MEDICAL HISTORY: 1. Morbid obesity. 2. Chronic renal disease - followed by Dr Ledesma. 3. Coronary artery disease - on Plavix in the past. He sees Dr. Marvin at [place]. SOCIAL HISTORY: He is a retired [employer] 51 years. His sister was with him giving the history. MEDICATIONS: As an outpatient: Aspirin 81. Glucophage 1000 b.i.d. Glucotrol 5. Invokana 100. Crestor 10. Lisinopril 2.5. Lopressor 50 b.i.d. Motrin 600 mg most days of the week. Lasix 20 mg. REVIEW OF SYSTEMS: He smoked 3 packs a day until 2011. He had a urinary catheter placed in the emergency room and that is his main complaint at this time. There is no history of TIA, CVA, seizure, recent chest pain, syncope, hepatitis, jaundice, or diverticulitis. No history of psoriasis. No gross hematuria. PHYSICAL EXAM: This chronically ill-appearing man in a wheelchair. HEENT exam shows no icterus. Patient movements are symmetric. He has no adenopathy. His lungs are clear with poor effort. Heart sounds are regular. The abdomen is protuberant with a large nontender umbilical hernia. There are no scars or areas of tenderness or masses. Rectal deferred. Extremities show symmetric edema up to the knees. Popliteal pulses intact. DIAGNOSTIC STUDIES/LAB DATA: On admission, hemoglobin 9.2, hematocrit 26. INR 1.02. BUN 84, creatinine 3.68. LFTs normal. TSH 0.68. IMPRESSION: This 71-year-old man with obesity; diabetes, on multiple agents; and renal insufficiency, which is substantially worse, probably has ibuprofen at the intersection of most of the recent problems. He has upper gastrointestinal tract referable symptoms and upper endoscopy is indicated to assess for gastric ulcer or other pathology. There is no sign of an active GI bleeding at the moment. Hopefully withdrawal of the NSAID will allow his renal function to improve. [id number]/[facility] #: [id number] [facility] [place]
--- NOTE | 2017-11-04 15:09 | PN ---
Subjective Date of Service: 11/04/17 Interval History: HOSPITALIST PROGRESS NOTE Patient seen and examined at bedside. He feels better today. Had some epigastric pain and nausea before, but feels okay now. Major complaint is his Michelle catheter. Family History: Unchanged from Admission Social History: Unchanged from Admission Past Medical History: Unchanged from Admission Objective Active Medications: Acetaminophen (Tylenol Tab*) 650 mg PO Q4H PRN PRN Reason: FEVER/PAIN Last Admin: 11/04/17 12:49 Dose: 650 mg Aspirin (Aspirin Ec Tab*) 81 mg PO DAILY [facility] Citric Acid/Sodium Citrate (Bicitra*) 30 ml PO TID [facility] Last Admin: 11/04/17 12:52 Dose: 30 ml Dextrose (D50w Syringe 50 Ml*) 12.5 gm IV PUSH .FOR FS < 60 - SS PRN PRN Reason: FS < 60 Docusate Sodium (Colace Cap*) 100 mg PO BID [facility] Last Admin: 11/04/17 09:05 Dose: 100 mg Sodium Chloride (Ns 0.9% 1000 Ml*) 1,000 mls @ 100 mls/hr IV PER RATE [facility] Last Admin: 11/03/17 17:38 Dose: 100 mls/hr Insulin Human Lispro (Humalog*) 0 units SUBCUT AC [facility]; Protocol Last Admin: 11/04/17 12:51 Dose: 6 units Lactulose (Lactulose*) 15 ml PO TID PRN PRN Reason: CONSTIPATION Melatonin (Melatonin) 3 mg PO BEDTIME PRN; Protocol PRN Reason: Sleep Last Admin: 11/04/17 00:49 Dose: 3 mg Metoprolol Tartrate (Lopressor Tab*) 50 mg PO BID [facility] Last Admin: 11/04/17 09:05 Dose: 50 mg Oxycodone/Acetaminophen (Percocet 5/325 Tab*) 1 tab PO Q8H PRN PRN Reason: PAIN Last Admin: 11/03/17 22:38 Dose: 1 tab Senna (Senokot Tab*) 2 tab PO BEDTIME [facility] Last Admin: 11/03/17 20:56 Dose: 2 tab Vital Signs - 8 hr 11/04/17 11/04/17 11/04/17 07:27 08:00 11:23 Temperature 97.3 F 97.5 F Pulse Rate 95 76 Respiratory 18 18 17 Rate Blood Pressure 116/65 114/60 (mmHg) O2 Sat by Pulse 98 97 Oximetry Oxygen Devices in Use Now: None Appearance: Pleasant elderly gentleman sitting up in a recliner in NAD. Eyes: No Scleral Icterus Ears/Nose/Mouth/Throat: Mucous Membranes Moist Neck: Trachea Midline Respiratory: Symmetrical Chest Expansion and Respiratory Effort, Clear to Auscultation Cardiovascular: RRR - Normal S1 and S2 Abdominal: NL Sounds; No Tenderness; No Distention - obese Extremities: - - Bilateral LE pitting edema Neurological: Alert and Oriented x 3, NL Muscle Strength and Tone Lines/Tubes/Other Access: Clean, Dry and Intact Michelle Result Diagrams: 11/04/17 07:55 11/04/17 07:55 Assess/Plan/Problems-Billing Assessment: Mr Reynoso is a 71yo M with PMH of CAD, type 2 DM, HTN, HLD, chronic back pain, CKD stage 2-3, who presented to PCP with c/o weakness, referred to ED due to anemia and worsening renal failure. - Patient Problems (1) DALIA (acute kidney injury) Comment: - Multifactorial in the setting of NSAID use and obstruction. - Patient educated about NSAID side effects. - Will keep Michelle catheter and monitor UO and renal function. - Obstruction likely secondary to BPH - will start Flomax and monitor. (2) Anemia Comment: - Hb dropped from 14.8 in 2017 to 9.5 now. - Has epigastric pain and nausea - suspect NSAID induced PUD. - Add PPI. - Plan for EGD tomorrow. (3) Elevated CPK Comment: - Mild, not enough to explain DALIA. - Likely secondary to statins - on hold for now. (4) CAD (coronary artery disease) Comment: - Patient is not actively bleeding right now - will resume low dose Aspirin and get records from Dr Marvin's office. - Continue Metoprolol. (5) HLD (hyperlipidemia) Comment: - Rosuvastatin on hold for night. (6) Back pain Comment: - Will increase oxycodone as he should not be on NSAIDs anymore. (7) DVT prophylaxis Comment: - SCDs. (8) Full code status Status and Disposition: Inpatient.
[2017-11-04] MEDS ORDERED: PROCHLORPERAZINE INJ 5 MG/ML 2 ML VIAL IV PRN (16:00)
[2017-11-04] MEDS: oxyCODONE/Acetamin 5/325 MG* TAB PO PRN ×2 (16:46→22:30)
[2017-11-04] MEDS: Pantoprazole IV* 40 MG IV SCH (16:47)
[2017-11-04] MEDS: Senna TAB PO SCH (20:40)
[2017-11-04] MEDS: Tamsulosin CAP* 0.4 MG PO SCH (20:41)
[2017-11-05] MEDS: oxyCODONE/Acetamin 5/325 MG* TAB PO PRN ×2 (05:30→20:20)
[2017-11-05 06:53] LABS: ABS Basophils 0.1 10^3/ul (0-0.2); ABS Eosinophils 0.1 10^3/ul (0-0.6); ABS Monocytes 0.6 10^3/ul (0-0.8); ABS Neutrophils 9.2 10^3/ul (1.5-7.7); ABS Nucleated RBC 0 10^3/ul; Eosinophil % 0.8 % (0-6); Hematocrit 22 % (42-52); Hemoglobin 7.9 g/dl (14.0-18.0); Lymphocyte % 8.7 % (25-47); Mean Corpuscular HGB Conc 36 g/dl (31-36); Mean Corpuscular Hemoglobin 33 pg (27-31); Mean Corpuscular Volume 93 fL (80-94); Mean Platelet Volume 7.9 um3 (7.4-10.4); Nucleated Red Blood Cells % 0; Platelet Count 277 10^3/ul (150-450); Red Blood Count 2.39 10^6/ul (4.00-5.40); Red Cell Distribution Width 14 % (10.5-15)
[2017-11-05 07:01] LABS: EGFR Non-African American 21.3 (>60)
[2017-11-05] MEDS ORDERED: Midazolam* 1 MG/ML 10 ML VIAL (10 MG) ONE (08:27)
[2017-11-05] MEDS ORDERED: fentaNYL* 50 MCG/ML 2 ML VIAL (100 MCG VIAL) ONE (08:27)
[2017-11-05] MEDS: Insulin LISPRO* 1 UNITS UNIT SUBCUT SCH ×3 (08:32→16:59)
[2017-11-05] MEDS: Pantoprazole IV* 40 MG IV SCH ×2 (11:05→20:19)
[2017-11-05] MEDS: Aspirin EC TAB* 81 MG TAB.EC PO SCH (12:21)
[2017-11-05] MEDS: Metoprolol Tartrate TAB* 50 mg PO SCH ×2 (12:22→20:24)
[2017-11-05] MEDS: Docusate CAP* 100 MG PO SCH ×2 (12:22→20:19)
[2017-11-05] MEDS: Sodium Citrate/Citric Acid* 15 ML UDC PO SCH ×3 (12:25→20:19)
--- NOTE | 2017-11-05 14:45 | PN ---
Subjective Date of Service: 11/05/17 Interval History: HOSPITALIST PROGRESS NOTE Patient seen and examined at bedside. Care reviewed and d/w Johanna Rosenthal RN. He is still a little sedated after EGD, only complaint is Michelle catheter. Family History: Unchanged from Admission Social History: Unchanged from Admission Past Medical History: Unchanged from Admission Objective Active Medications: Acetaminophen (Tylenol Tab*) 650 mg PO Q4H PRN PRN Reason: FEVER/PAIN Last Admin: 11/04/17 12:49 Dose: 650 mg Aspirin (Aspirin Ec Tab*) 81 mg PO DAILY [facility] Last Admin: 11/05/17 12:21 Dose: 81 mg Citric Acid/Sodium Citrate (Bicitra*) 30 ml PO TID [facility] Last Admin: 11/05/17 14:19 Dose: 30 ml Dextrose (D50w Syringe 50 Ml*) 12.5 gm IV PUSH .FOR FS < 60 - SS PRN PRN Reason: FS < 60 Docusate Sodium (Colace Cap*) 100 mg PO BID [facility] Last Admin: 11/05/17 12:22 Dose: 100 mg Insulin Human Lispro (Humalog*) 0 units SUBCUT AC [facility]; Protocol Last Admin: 11/05/17 12:22 Dose: 3 units Lactulose (Lactulose*) 15 ml PO TID PRN PRN Reason: CONSTIPATION Last Admin: 11/04/17 17:29 Dose: 15 ml Melatonin (Melatonin) 3 mg PO BEDTIME PRN; Protocol PRN Reason: Sleep Last Admin: 11/04/17 20:41 Dose: 3 mg Metoprolol Tartrate (Lopressor Tab*) 50 mg PO BID [facility] Last Admin: 11/05/17 12:22 Dose: 50 mg Oxycodone/Acetaminophen (Percocet 5/325 Tab*) 1 tab PO Q6H PRN PRN Reason: PAIN Last Admin: 11/05/17 05:30 Dose: 1 tab Pantoprazole Sodium (Protonix Iv*) 40 mg IV BID [facility] Prochlorperazine Edisylate (Compazine Inj*) 5 mg IV Q6H PRN PRN Reason: NAUSEA/VOMITING Last Admin: 11/04/17 16:55 Dose: 5 mg Senna (Senokot Tab*) 2 tab PO BEDTIME [facility] Last Admin: 11/04/17 20:40 Dose: 2 tab Tamsulosin HCl (Flomax Cap*) 0.4 mg PO BEDTIME [facility] Last Admin: 11/04/17 20:41 Dose: 0.4 mg Vital Signs - 8 hr 11/05/17 11/05/17 11/05/17 07:14 08:00 08:02 Temperature 98.1 F Pulse Rate 90 Respiratory 22 22 22 Rate Blood Pressure 97/46 (mmHg) O2 Sat by Pulse 94 Oximetry 11/05/17 11/05/17 11/05/17 10:33 11:30 12:31 Temperature 96.8 F 97.8 F Pulse Rate 77 74 76 Respiratory 22 20 20 Rate Blood Pressure 114/47 102/50 116/46 (mmHg) O2 Sat by Pulse 96 100 96 Oximetry 11/05/17 14:23 Temperature 98 F Pulse Rate 75 Respiratory 22 Rate Blood Pressure 93/46 (mmHg) O2 Sat by Pulse 96 Oximetry Oxygen Devices in Use Now: None Appearance: Pleasant elderly gentleman lying in bed in NAD. Eyes: No Scleral Icterus Ears/Nose/Mouth/Throat: Mucous Membranes Moist Neck: Trachea Midline Respiratory: Symmetrical Chest Expansion and Respiratory Effort, Clear to Auscultation Cardiovascular: RRR - Normal S1 and S2 Abdominal: NL Sounds; No Tenderness; No Distention - obese Neurological: - - Mild lethargy, arousable to voice, Ox3, GABRIEL Result Diagrams: 11/05/17 06:04 11/05/17 06:04 Assess/Plan/Problems-Billing Assessment: Mr Reynoso is a 71yo M with PMH of CAD, type 2 DM, HTN, HLD, chronic back pain, CKD stage 2-3, who presented to PCP with c/o weakness, referred to ED due to anemia and worsening renal failure. - Patient Problems (1) DALIA (acute kidney injury) Comment: - Multifactorial in the setting of NSAID use and obstruction. - Patient educated about NSAID side effects. - Obstruction likely secondary to BPH - continue Flomax and monitor. - D/c Michelle catheter and monitor PVR. Patient and daughter aware he may need Michelle insertion again if he has another episode of urinary retention. - Continue to monitor UO and renal function. (2) Anemia Comment: - Blood loss anemia - Hb down to 7.9 - no signs of active bleeding. - Continue to monitor. (3) Duodenal ulcer Comment: - EGD showed duodenal ulcer - secondary to NSAID use. - Continue PPI BID. (4) Elevated CPK Comment: - Mild, not enough to explain DALIA - trending down. - Likely secondary to statins - on hold for now. (5) CAD (coronary artery disease) Comment: - Patient is not actively bleeding right now - d/w GI - will continue low dose Aspirin. - Awaiting records from Dr Marvin's office. - Continue Metoprolol. (6) HLD (hyperlipidemia) Comment: - Rosuvastatin on hold for now. (7) Back pain Comment: - Continue higher dose oxycodone as he should not be on NSAIDs anymore. (8) DVT prophylaxis Comment: - SCDs. (9) Full code status Status and Disposition: Inpatient.
[2017-11-05] MEDS ORDERED: NS 0.9% 500 ML* 500 ML IV ONE (19:45)
[2017-11-05] MEDS: Tamsulosin CAP* 0.4 MG PO SCH (20:19)
[2017-11-05] MEDS: Senna TAB PO SCH (20:20)
[2017-11-06] MEDS: Acetaminophen TAB* 325 MG PO PRN (00:58)
[2017-11-06] MEDS: oxyCODONE/Acetamin 5/325 MG* TAB PO PRN ×2 (04:23→22:30)
[2017-11-06 06:56] LABS: Hematocrit 21 % (42-52); Hemoglobin 7.4 g/dl (14.0-18.0)
[2017-11-06 07:16] LABS: EGFR Non-African American 23.4 (>60)
[2017-11-06] MEDS: Docusate CAP* 100 MG PO SCH ×2 (08:51→22:31)
[2017-11-06] MEDS: Aspirin EC TAB* 81 MG TAB.EC PO SCH (08:52)
[2017-11-06] MEDS: Sodium Citrate/Citric Acid* 15 ML UDC PO SCH ×3 (08:52→22:31)
[2017-11-06] MEDS: Pantoprazole IV* 40 MG IV SCH ×2 (08:52→23:36)
[2017-11-06] MEDS: Insulin LISPRO* 1 UNITS UNIT SUBCUT SCH ×3 (08:52→17:53)
[2017-11-06] MEDS: Metoprolol Tartrate TAB* 50 mg PO SCH (09:02)
[2017-11-06] MEDS ORDERED: NS 0.9% 1000 ML* 1,000 ML IV ONE (14:11)
--- NOTE | 2017-11-06 14:40 | RAD ---
HISTORY: Possible transfusion reaction COMPARISONS: September 01, 2017 VIEWS: 1: frontal AP view of the chest at 2:23 PM FINDINGS: LINES AND TUBES: None. CARDIOMEDIASTINAL SILHOUETTE: The cardiomediastinal silhouette is stable. PLEURA: The costophrenic angles are sharp. No pleural abnormalities are noted. LUNG PARENCHYMA: The lungs are clear. ABDOMEN: The upper abdomen is clear. There is no subphrenic gas. BONES AND SOFT TISSUES: Degenerative changes are noted. IMPRESSION: NO ACTIVE CARDIOPULMONARY DISEASE.
--- NOTE | 2017-11-06 16:37 | PN ---
Subjective Date of Service: 11/06/17 Interval History: HOSPITALIST PROGRESS NOTE Patient seen and examined at bedside. Care reviewed and d/w Parish Olivera RN. He feels better today and is anxious for discharge. Denies abdominal pain, N/V, appetite is improved. Annoyed he has to let nurses know he urinated and get PVR checked. Family History: Unchanged from Admission Social History: Unchanged from Admission Past Medical History: Unchanged from Admission Objective Active Medications: Acetaminophen (Tylenol Tab*) 650 mg PO Q4H PRN PRN Reason: FEVER/PAIN Last Admin: 11/06/17 00:58 Dose: 650 mg Aspirin (Aspirin Ec Tab*) 81 mg PO DAILY REPLACED BY [facility] Last Admin: 11/06/17 08:52 Dose: 81 mg Citric Acid/Sodium Citrate (Bicitra*) 30 ml PO TID REPLACED BY [facility] Last Admin: 11/06/17 13:40 Dose: 30 ml Dextrose (D50w Syringe 50 Ml*) 12.5 gm IV PUSH .FOR FS < 60 - SS PRN PRN Reason: FS < 60 Docusate Sodium (Colace Cap*) 100 mg PO BID REPLACED BY [facility] Last Admin: 11/06/17 08:51 Dose: 100 mg Insulin Human Lispro (Humalog*) 0 units SUBCUT AC REPLACED BY [facility]; Protocol Last Admin: 11/06/17 13:39 Dose: 6 units Lactulose (Lactulose*) 15 ml PO TID PRN PRN Reason: CONSTIPATION Last Admin: 11/04/17 17:29 Dose: 15 ml Melatonin (Melatonin) 3 mg PO BEDTIME PRN; Protocol PRN Reason: Sleep Last Admin: 11/04/17 20:41 Dose: 3 mg Metoprolol Tartrate (Lopressor Tab*) 50 mg PO BID REPLACED BY [facility] Last Admin: 11/06/17 09:02 Dose: 50 mg Multi-Ingredient Liniment/Rub (Pilo Beltran*) 1 applic TOPICAL TID REPLACED BY [facility] Oxycodone/Acetaminophen (Percocet 5/325 Tab*) 1 tab PO Q6H PRN PRN Reason: PAIN Last Admin: 11/06/17 04:23 Dose: 1 tab Pantoprazole Sodium (Protonix Iv*) 40 mg IV BID REPLACED BY [facility] Last Admin: 11/06/17 08:52 Dose: 40 mg Prochlorperazine Edisylate (Compazine Inj*) 5 mg IV Q6H PRN PRN Reason: NAUSEA/VOMITING Last Admin: 11/04/17 16:55 Dose: 5 mg Senna (Senokot Tab*) 2 tab PO BEDTIME REPLACED BY [facility] Last Admin: 11/05/17 20:20 Dose: 2 tab Tamsulosin HCl (Flomax Cap*) 0.4 mg PO BEDTIME REPLACED BY [facility] Last Admin: 11/05/17 20:19 Dose: 0.4 mg Vital Signs - 8 hr 11/06/17 09:02 Pulse Rate 76 Blood Pressure 107/55 (mmHg) Oxygen Devices in Use Now: None Appearance: Elderly gentleman sitting up in a recliner in NAD. Eyes: No Scleral Icterus Ears/Nose/Mouth/Throat: Mucous Membranes Moist Neck: Trachea Midline Respiratory: Symmetrical Chest Expansion and Respiratory Effort, Clear to Auscultation Cardiovascular: RRR - Normal S1 and S2 Abdominal: NL Sounds; No Tenderness; No Distention Neurological: Alert and Oriented x 3, NL Muscle Strength and Tone Result Diagrams: 11/06/17 06:39 11/06/17 06:39 Assess/Plan/Problems-Billing Assessment: Mr Reynoso is a 71yo M with PMH of CAD, type 2 DM, HTN, HLD, chronic back pain, CKD stage 2-3, who presented to PCP with c/o weakness, referred to ED due to anemia and worsening renal failure. - Patient Problems (1) DALIA (acute kidney injury) Comment: - Multifactorial in the setting of NSAID use and obstruction. - Patient educated about NSAID side effects. - Obstruction likely secondary to BPH - continue Flomax and monitor. - Voiding after Michelle catheter removal and PVR has remained <100ml. (2) Anemia Comment: - Blood loss anemia - Hb down to 7.4 with no signs of active bleeding. - With his h/o CAD, will transfuse. (3) Duodenal ulcer Comment: - EGD showed duodenal ulcer - secondary to NSAID use. - Continue PPI BID. (4) Elevated CPK Comment: - Mild, not enough to explain DALIA - trending down. - Likely secondary to statins - on hold for now. (5) CAD (coronary artery disease) Comment: - Patient is not actively bleeding right now - d/w GI - will continue low dose Aspirin. - Continue Metoprolol. (6) HLD (hyperlipidemia) Comment: - Rosuvastatin on hold for now. (7) Back pain Comment: - Continue higher dose oxycodone as he should not be on NSAIDs anymore. (8) DVT prophylaxis Comment: - SCDs. (9) Full code status Status and Disposition: Inpatient.
[2017-11-06] MEDS: Analgesic BALM* 114 GM TOPICAL SCH ×3 (18:42→22:32)
[2017-11-06] MEDS: Senna TAB PO SCH ×2 (22:30→22:33)
[2017-11-06] MEDS: Melatonin 3 MG TAB PO PRN (22:30)
[2017-11-06] MEDS: Metoprolol Tartrate TAB* 25 MG PO SCH (22:31)
[2017-11-06] MEDS: Tamsulosin CAP* 0.4 MG PO SCH (22:31)
[2017-11-07] MEDS: Acetaminophen TAB* 325 MG PO PRN (00:28)
[2017-11-07] MEDS ORDERED: HYDROmorphone INJ1* 1 MG/ML SYRINGE IV ONE (00:50)
[2017-11-07 07:24] LABS: EGFR Non-African American 27.8 (>60)
[2017-11-07] MEDS: Metoprolol Tartrate TAB* 25 MG PO SCH ×2 (07:49→21:11)
[2017-11-07] MEDS: oxyCODONE/Acetamin 5/325 MG* TAB PO PRN ×4 (07:49→21:17)
[2017-11-07] MEDS: Aspirin EC TAB* 81 MG TAB.EC PO SCH (07:49)
[2017-11-07] MEDS: Docusate CAP* 100 MG PO SCH ×3 (07:49→21:11)
[2017-11-07] MEDS: Sodium Citrate/Citric Acid* 15 ML UDC PO SCH ×3 (07:51→21:09)
[2017-11-07] MEDS: Pantoprazole IV* 40 MG IV SCH ×2 (07:51→21:11)
[2017-11-07] MEDS: Insulin LISPRO* 1 UNITS UNIT SUBCUT SCH ×3 (07:52→17:12)
[2017-11-07] MEDS: Analgesic BALM* 114 GM TOPICAL SCH (07:54)
[2017-11-07 08:15] LABS: Hematocrit 23 % (42-52); Hemoglobin 7.7 g/dl (14.0-18.0); Mean Corpuscular HGB Conc 34 g/dl (31-36); Mean Corpuscular Hemoglobin 32 pg (27-31); Mean Corpuscular Volume 93 fL (80-94); Mean Platelet Volume 7.5 um3 (7.4-10.4); Platelet Count 256 10^3/ul (150-450); Red Blood Count 2.43 10^6/ul (4.00-5.40); Red Cell Distribution Width 15 % (10.5-15); White Blood Count 5.7 10^3/ul (3.5-10.8)
[2017-11-07 09:03] LABS: ABS Basophils 0 10^3/ul (0-0.2); ABS Eosinophils 0.1 10^3/ul (0-0.6); ABS Monocytes 0.4 10^3/ul (0-0.8); ABS Neutrophils 4.1 10^3/ul (1.5-7.7); ABS Nucleated RBC 0 10^3/ul; Eosinophil % 2.5 % (0-6); Lymphocyte % 17.7 % (25-47); Nucleated Red Blood Cells % 0.1
[2017-11-07] MEDS: Lidocaine PATCH 5%* 1 PATCH TRANSDERM SCH (12:51)
--- NOTE | 2017-11-07 13:03 | PN ---
Subjective Date of Service: 11/07/17 Interval History: HOSPITALIST PROGRESS NOTE Patient seen and examined at bedside. Care reviewed and d/w Aracelis Tim RN. He offers multiple complaints today: was unable to sleep last night, has bilateral knee pain not relieved by current regimen, Pilo Beltran smell gives him nausea. Epigastric pain is resolved and he is tolerating diet well. Family History: Unchanged from Admission Social History: Unchanged from Admission Past Medical History: Unchanged from Admission Objective Active Medications: Acetaminophen (Tylenol Tab*) 650 mg PO Q4H PRN PRN Reason: FEVER/PAIN Last Admin: 11/07/17 00:28 Dose: 650 mg Aspirin (Aspirin Ec Tab*) 81 mg PO DAILY PENDING SALE TO [facility] Last Admin: 11/07/17 07:49 Dose: 81 mg Citric Acid/Sodium Citrate (Bicitra*) 30 ml PO TID PENDING SALE TO [facility] Last Admin: 11/07/17 07:51 Dose: 30 ml Dextrose (D50w Syringe 50 Ml*) 12.5 gm IV PUSH .FOR FS < 60 - SS PRN PRN Reason: FS < 60 Docusate Sodium (Colace Cap*) 100 mg PO BID PENDING SALE TO [facility] Last Admin: 11/07/17 07:57 Dose: Not Given Insulin Human Lispro (Humalog*) 0 units SUBCUT AC PENDING SALE TO [facility]; Protocol Last Admin: 11/07/17 12:52 Dose: 3 units Lactulose (Lactulose*) 15 ml PO TID PRN PRN Reason: CONSTIPATION Last Admin: 11/04/17 17:29 Dose: 15 ml Lidocaine (Lidoderm 5% Patch*) 2 patch TRANSDERM DAILY PENDING SALE TO [facility] Last Admin: 11/07/17 12:51 Dose: 2 patch Melatonin (Melatonin) 3 mg PO BEDTIME PRN; Protocol PRN Reason: Sleep Last Admin: 11/06/17 22:30 Dose: 3 mg Metoprolol Tartrate (Lopressor Tab*) 25 mg PO BID PENDING SALE TO [facility] Last Admin: 11/07/17 07:49 Dose: 25 mg Oxycodone/Acetaminophen (Percocet 5/325 Tab*) 1 tab PO Q4H PRN PRN Reason: PAIN Pantoprazole Sodium (Protonix Iv*) 40 mg IV BID PENDING SALE TO [facility] Last Admin: 11/07/17 07:51 Dose: 40 mg Pharmacy Profile Note (Lidocaine Patch Remove*) 1 note N/A 2100 PENDING SALE TO [facility] Prochlorperazine Edisylate (Compazine Inj*) 5 mg IV Q6H PRN PRN Reason: NAUSEA/VOMITING Last Admin: 11/04/17 16:55 Dose: 5 mg Senna (Senokot Tab*) 2 tab PO BEDTIME PENDING SALE TO [facility] Last Admin: 11/06/17 22:33 Dose: Not Given Tamsulosin HCl (Flomax Cap*) 0.4 mg PO BEDTIME PENDING SALE TO [facility] Last Admin: 11/06/17 22:31 Dose: 0.4 mg Vital Signs - 8 hr 11/07/17 11/07/17 11/07/17 07:09 07:49 11:38 Temperature 97.7 F Pulse Rate 59 Respiratory 18 16 18 Rate Blood Pressure 116/49 (mmHg) O2 Sat by Pulse 98 Oximetry Oxygen Devices in Use Now: None Appearance: Elderly gentleman sitting up in a recliner in NAD. Eyes: No Scleral Icterus Ears/Nose/Mouth/Throat: Mucous Membranes Moist Neck: Trachea Midline Respiratory: Symmetrical Chest Expansion and Respiratory Effort, Clear to Auscultation Cardiovascular: RRR - Normal S1 and S2 Abdominal: NL Sounds; No Tenderness; No Distention Extremities: - - Kness - no warmth, erythema, edema Neurological: Alert and Oriented x 3, NL Muscle Strength and Tone Result Diagrams: 11/07/17 08:06 11/07/17 08:06 Assess/Plan/Problems-Billing Assessment: Mr Reynoso is a 71yo M with PMH of CAD, type 2 DM, HTN, HLD, chronic back pain, CKD stage 2-3, who presented to PCP with c/o weakness, referred to ED due to anemia and worsening renal failure. - Patient Problems (1) DALIA (acute kidney injury) Comment: - Multifactorial in the setting of NSAID use and obstruction. - Patient educated about NSAID side effects. - Obstruction likely secondary to BPH - continue Flomax and monitor. - Voiding after Michelle catheter removal and PVR has remained <100ml. (2) Anemia Comment: - S/p 2 PRBC - Hb 7.7 and patient declines any further transfusion. - Start iron supplementation. (3) Duodenal ulcer Comment: - EGD showed duodenal ulcer - secondary to NSAID use. - Continue PPI BID. (4) Elevated CPK Comment: - Mild, not enough to explain DALIA - trending down. - Likely secondary to statins - on hold for now. (5) CAD (coronary artery disease) Comment: - Patient is not actively bleeding right now - d/w GI - will continue low dose Aspirin. - Continue Metoprolol. (6) HLD (hyperlipidemia) Comment: - Rosuvastatin on hold for now. (7) Back pain Comment: - Continue higher dose oxycodone as he should not be on NSAIDs anymore. (8) DVT prophylaxis Comment: - SCDs. (9) Full code status Status and Disposition: Inpatient.
[2017-11-07] MEDS ORDERED: Temazepam CAP* 15 MG PO SCH (21:00)
[2017-11-07] MEDS ORDERED: Lidocaine Patch REMOVE* 1 NOTE MISC SCH (21:00)
[2017-11-07] MEDS: Tamsulosin CAP* 0.4 MG PO SCH (21:11)
[2017-11-07] MEDS: Senna TAB PO SCH (21:11)
[2017-11-08] MEDS: Acetaminophen TAB* 325 MG PO PRN (00:02)
[2017-11-08] MEDS: Melatonin 3 MG TAB PO PRN (00:02)
--- NOTE | 2017-11-08 00:28 | PN ---
Progress Note - Progress Note Date of Service: 11/08/17 Note: Patient voided 175, PVR: >350 ml - Will straight cath x 1
[2017-11-08] MEDS ORDERED: Lidocaine 2% JELLY* 6 ML JELLY TOPICAL ONE (00:54)
[2017-11-08] MEDS: oxyCODONE/Acetamin 5/325 MG* TAB PO PRN ×3 (01:11→12:05)
[2017-11-08 07:24] VITALS: BP 130/61
[2017-11-08] MEDS: Aspirin EC TAB* 81 MG TAB.EC PO SCH (07:49)
[2017-11-08] MEDS: Docusate CAP* 100 MG PO SCH (07:49)
[2017-11-08] MEDS: Sodium Citrate/Citric Acid* 15 ML UDC PO SCH (07:50)
[2017-11-08] MEDS: Metoprolol Tartrate TAB* 25 MG PO SCH (07:50)
[2017-11-08] MEDS: Pantoprazole IV* 40 MG IV SCH (07:52)
[2017-11-08] MEDS: Insulin LISPRO* 1 UNITS UNIT SUBCUT SCH ×2 (07:52→13:02)
[2017-11-08] MEDS: Lidocaine PATCH 5%* 1 PATCH TRANSDERM SCH (07:55)
[2017-11-08] MEDS ORDERED: Ferrous Sulfate TAB* 325 MG PO SCH (09:00)
--- NOTE | 2017-11-09 22:10 | DS ---
CC: Dr. Villarreal; Dr. Sneed; Dr. Ledesma; Dr. Banuelos; Dr. Mravin * DISCHARGE SUMMARY: DATE OF ADMISSION: 11/03/17 DATE OF DISCHARGE: 11/08/17 PRIMARY CARE PROVIDER: Dr. Villarreal. PLANT WRAPPER: Dr. Sneed. APPLICATION SUPPORT TECHNICIAN: Dr. Ledesma. UROLOGIST: Dr. Banuelos. BARREL CUTTER: Dr. Marvin. DISCHARGE DIAGNOSES: 1. Blood loss anemia. 2. GI bleed secondary to peptic ulcer disease (duodenal ulcer NSAID related). 3. Acute kidney injury, multifactorial, likely secondary to NSAID use but also a component of urinary obstruction, likely secondary to benign prostatic hypertrophy. 4. Mild CPK elevation, likely secondary to statins. 5. Vitamin B12 deficiency. SECONDARY DIAGNOSES: 1. Coronary artery disease, status post stent. 2. Type 2 diabetes. 3. Hypertension. 4. Hyperlipidemia. 5. Prior history of tobacco abuse. 6. Chronic back pain. 7. Bilateral knee osteoarthritis. 8. Status post laminectomy. 9. Status post tonsillectomy. 10. Status post hernia repair. HOSPITAL COURSE: Mr. Reynoso is a 71-year-old male with a past medical history as stated above that presented to the emergency room with complaints of weakness , fatigue, abdominal pain, nausea, and vomiting. He was seen by his primary care provider and lab results had shown a drop in his hemoglobin from 14 in 2015 to 9 now and also that he was in acute kidney injury. For more details about his presentation, I refer you to his H and P. The patient was taking 1200 mg of ibuprofen every day for his back pain and the impression was that he likely had an intermittent GI bleed secondary to it. He was seen by Gastroenterology (Dr. Sneed) and had an endoscopy that showed duodenal ulcer, not actively bleeding. The patient was started on PPI and after discussing with GI, it was determined that he could continue low dose aspirin but should avoid any other antiinflammatory drugs. On admission, the patient was found to have a creatinine of 3.6 from a baseline around 1.5. He had 500 mL urinary retention in the emergency room and had a Michelle catheter placed. He was started on Flomax for possible BPH and his Michelle catheter was later removed. Initially, he had no further urinary retention but developed residual of 300 to 400 mL again. I did discuss the case with Dr. Banuelos and the recommendation was to replace the Michelle catheter since the patient was admitted with acute kidney injury and discharging with the catheter to follow up with Urology but the patient refused it. We talked about the risks and benefits including worsening of his renal failure, risks of urinary tract infection but the patient is very clear that putting the catheter in was very painful the first time and he would not allow it again and he is willing to take the risk of worsening renal function. This was also explained to the patient's daughter and and they deferred to the patient to make the decision even though they do not agree with him. On discharge, his creatinine is down to 2.1. He has good urinary output and he will follow up with Dr. Ledesma as outpatient. For his chronic pain, the patient's pain medication was changed to oxycodone 5 to 10 mg every 4 hours as needed for pain. I am concerned that he will take too much acetaminophen if prescribed Percocet. The patient states that he is planning to have knee replacement surgery but I explained that he has many medical issues that need to be stabilized before he makes any surgical plans. The patient's hemoglobin on the day of discharge is 7.7. He had received 2 PRBCs while in the hospital. Anemia workup showed an iron level of 52 with a ferritin of 169 with a vitamin B12 of 170. The patient declined oral iron and vitamin B12 supplementation because "it upsets" his stomach. He will need parenteral vitamin B12 supplementation as outpatient at his PCP's office. The patient was also noted to have CPK elevation of 526 and this was felt to be secondary to statin. The patient was on Crestor and this was held for now. His CPK can be monitored and maybe the Crestor could be resumed at a lower dose with monitoring of his CPK. Regarding his diabetes, due to his renal function most of his medications had to be discontinued. His GFR is too low at this time for Invokana and metformin. He will be continued on his glipizide but as his renal function continues to improve, he may be able to resume his medications down the road. The patient is medically stable for discharge at this time but he will need close followup with his primary care provider and with the specialists as described above including Dr. Sneed, Dr. Ledesma, and Dr. Banuelos. PHYSICAL EXAMINATION: Vital Signs: Temperature 97.6, heart rate 87, respiratory rate 18, oxygen saturation 100% on room air, blood pressure 130/61. General: The patient is an obese gentleman, sitting up in the chair, in no acute distress. CVS: Normal S1, S2. Regular rate and rhythm. Chest: Breath sounds bilaterally with no added sounds. Abdomen is obese. Bowel sounds present. Neuro: He is alert and oriented x3. Able to move all 4 extremities. DIET: Consistent carb, renal diet. ACTIVITIES: As tolerated. DISPOSITION: To home. STATUS WHILE IN THE HOSPITAL: Inpatient. Please keep in mind this is a summarized version of this patient's complex hospital stay. If you need more information, please feel free to call me at [phone] or please obtain the full medical records. TIME SPENT: Approximately 45 minutes were spent to complete this discharge. [id number]/CPS #: [id number]
--- NOTE | 2017-12-18 00:36 | PRO ---
DATE: 11/05/17 REFERRING PHYSICIAN: Robert Villarreal. PROCEDURE: Upper gastrointestinal endoscopy and CLOtest INDICATION: This 72-year-old man was admitted weak, found to be anemic with hemoglobin of 7.9. Stool Hemoccult was actually negative. He was not having any active bleeding clinically. He has been taking large amounts of ibuprofen as an outpatient for back pain and knee pain. Informed consent was obtained with discussion with the family in the room including his . ENDOSCOPIST: Dr. Sneed MEDICATIONS: Midazolam 5, fentanyl 50. FINDINGS: He is an obese older man appearing in ill health. EGD: Larynx - limited views are symmetric. Esophagus - easily entered, mucosa is normal in the upper, mid, and lower esophagus with the EG junction at 44, snug, and without any erosions or scarring whatsoever. Stomach - fair amount of greenish opaque secretions and mucus. There was a small diverticulum in the gastric fundus without any blood in it. The fundus itself appeared normal. The EG junction appeared normal. Gastric antrum had minimal amount of prepyloric wispy bleeding, but no defined ulcers or erosions. There were no clots or old blood in the stomach. Duodenum - at the apex of the bulb at 9 o'clock orientation, there was a large 1.5- to 2-cm semi-linear ulcer with a deep black base. There was no clot or blood and no obvious stigmata. The base was quite dark. There was some swollen fold on the 2 to 4 o'clock orientation of bulb as you enter the sweep. After that there were numerous other ulcers somewhat black spots, but no active bleeding. There appeared to have been 15 to 20 other ulcers down to large erosions through the second through distal third portion of the duodenum. Again , no red blood or clots were seen. IMPRESSION: 1. Gastric diverticulum in the fundus - no evidence of clinical activity. 2. Antral gastritis. 3. Multiple duodenal ulcers without any active high-risk stigmata at this time. Findings were discussed with Dr Wilson. [id number]/[facility] #: [id number] [facility]
== END 2017-11-08 13:10 | disposition home or self-care (01) | DRG 682 ==
LOC: ED 11:32 → MED 15:56
PROVIDERS: ADMIT Hospitalist; ATTEND Internal Medicine
PROC: 0DJ08ZZ Inspection of Upper Intestinal Tract, Via Natural or Artificial Opening Endoscopic (ICD-10-PCS; principal; 2017-11-05)
PROC: 30233N1 Transfusion of Nonautologous Red Blood Cells into Peripheral Vein, Percutaneous Approach (ICD-10-PCS; 2017-11-06)
DX: N17.9 Acute kidney failure, unspecified (principal); K25.4 Chronic or unspecified gastric ulcer with hemorrhage; N13.8 Other obstructive and reflux uropathy; D50.0 Iron deficiency anemia secondary to blood loss (chronic); K26.9 Duodenal ulcer, unspecified as acute or chronic, without hemorrhage or perforation; E11.22 Type 2 diabetes mellitus with diabetic chronic kidney disease; I13.10 Hypertensive heart and chronic kidney disease without heart failure, with stage 1 through stage 4 chronic kidney disease, or unspecified chronic kidney disease; N18.3 Chronic kidney disease, stage 3 (moderate); I45.10 Unspecified right bundle-branch block; T39.395A Adverse effect of other nonsteroidal anti-inflammatory drugs [NSAID], initial encounter; E78.5 Hyperlipidemia, unspecified; M54.9 Dorsalgia, unspecified; I25.10 Atherosclerotic heart disease of native coronary artery without angina pectoris; E53.8 Deficiency of other specified B group vitamins; N40.1 Benign prostatic hyperplasia with lower urinary tract symptoms; R33.8 Other retention of urine; M17.0 Bilateral primary osteoarthritis of knee; K59.00 Constipation, unspecified; E66.01 Morbid (severe) obesity due to excess calories; R94.4 Abnormal results of kidney function studies; K42.9 Umbilical hernia without obstruction or gangrene; K31.4 Gastric diverticulum; K29.60 Other gastritis without bleeding; K29.70 Gastritis, unspecified, without bleeding; Z95.5 Presence of coronary angioplasty implant and graft; Y92.009 Unspecified place in unspecified non-institutional (private) residence as the place of occurrence of the external cause; Z87.891 Personal history of nicotine dependence; I25.2 Old myocardial infarction; Z79.84 Long term (current) use of oral hypoglycemic drugs; Z79.1 Long term (current) use of non-steroidal anti-inflammatories (NSAID); Z79.82 Long term (current) use of aspirin; Z79.899 Other long term (current) drug therapy; Z88.8 Allergy status to other drugs, medicaments and biological substances; Z82.49 Family history of ischemic heart disease and other diseases of the circulatory system; Z80.0 Family history of malignant neoplasm of digestive organs; Z68.34 Body mass index [BMI] 34.0-34.9, adult
CPT/HCPCS: 36415; 71045; 76775; 80048; 80053; 81003; 81015; 82272; 82550; 82607; 82728; 82746; 83540; 83550; 83605; 83615; 83735; 83880; 83921; 84100; 84443; 84484; 85014; 85018; 85025; 85045; 85610; 86078; 86140; 86850; 86900; 86901; 86922; 87077; 87086; 93005; 99156; 99157; 99283; A9270-GY; J0780; J1170; J2250; J3010; P9040

== ENCOUNTER 2017-11-12 21:20 | Inpatient (IN) | payer MEDICARE, OTHER ==
--- OUTSIDE RECORDS SUMMARY | 2017-11-12 21:34 | XMS REPORT ---
:1945 External Reference #:[id number] [facility] Address [address] [place] [address] [place] [address] Phone [phone] Care Team Providers Name Role Phone Robert Villarreal MD Primary Care Physician Unavailable Payers Type Date Identification Numbers Payment Provider Subscriber Commercial Policy Number: [id number] [employer]/[place] pr Chai Reynoso PayID: [id number] [address] [address] Attn: [place] [address] Medigap Part B Effective: Policy Number: [facility] Chai Reynoso 2008 [id number] Group Number: [id number] [address] PayID: [id number] [place] [address] Problems Date Description Provider Status Onset: 12/02/2010 Type 2 diabetes mellitus Raúl Bermudez M.D. Active Onset: 12/02/2010 Essential hypertension Raúl Bermudez M.D. Active Onset: 12/02/2010 Coronary arteriosclerosis Raúl Bermudez M.D. Active Onset: 07/29/2011 Tobacco user Raúl Bermudez M.D. Active Onset: 07/29/2011 Obesity Raúl Bermudez M.D. Active Family History Date Family Member(s) Problem(s) Comments General Diabetes General Heart Disease General Hypertension General Stroke General Cancer : (age 65 Years) Father due to Cancer : (age 55 Years) Mother due to MD Social History Type Date Description Comments Marital Status 4 children, retired [employer] 05/15. Lives With Occupation Retired ETOH Use Denies alcohol use Smoking Patient is a former smoker Daily Caffeine Consumes on average 4 cups of regular coffee per day Daily Caffeine Consumes on average 1 liter not well quantified. of iced tea per day Exercise Type/Frequency Does not exercise Allergies, Adverse Reactions, Alerts Date Description Reaction Status Severity Comments 01/11/2008 Lisinopril active pruritis 08/27/2010 Zocor fatigue even on 5 mg tolerates active f pravachol 10 mg 10/10/2007 NKDA inactive Medications Medication Date Status Form Strength Qnty SIG Indications Ordering Provider Metoprolol 06/09/ Active Tablets ER 50mg po bid Raúl Succinate ER 2012 24HR Elvis Bermudez M.D. Aspirin 10/09/ Active Tablets DR 81mg 1 PO qd Raúl 2007 Elvis Bermudez M.D. Glipizide XL / Active Tablets ER 5mg 90tabs one by Unknown 0000 24HR mouth every in the morning Oxycodone With / Active Tablets 5/325 mg Take Unknown Acetaminophen 0000 every 4-6hrs prn shoulder/ back pain Ibuprofen / Active Tablets 600mg 90tabs 1 by Unknown 0000 mouth three times a day as needed Brian Contour / Active Strips Shallish, Next Blood 0000 MD Robert Glucose Test Tamsulosin HCL / Active Capsules 0.4mg 1 by Unknown 0000 mouth every night Gabapentin / Active Capsules 100mg 1 by Unknown 0000 mouth 3 times a day. 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 07/20/ Fermin Bermudez M.D. Zocoele 01/24/ Hx Tablets 40mg 45tabs 02/08 Raúl 2008 - tablet PO F. 06/17/ QHS Mauser, 2010 M.D. Zocor 11/30/ Hx Tablets 80mg 30tabs 1 PO QHS Raúl 2007 - F. 01/24/ Mauser, 2007 M.D. Plavix 10/09/ Hx Tablets 75mg 90tabs 1 po qd Raúl 2007 - F. 06/09/ Mauser, 2012 M.D. Zocor 10/09/ Hx Tablets 40mg 90tabs 1 PO QHS Raúl 2007 - . 11/30/ Mauser, 2007 M.D. Metoprolol 10/09/ Hx Tablets 25mg 90tabs 1/2 Raúl Tartrate 2008 - tablet PO F. 06/09/ bid Mauser, 2012 M.D. Metformin XR 10/09/ Hx 500mg 90unit 2 tabs Raúl 2007 - s PO bid F. user, 2017 M.D. Motrin 10/09/ Hx Tablets 200mg. prn back Raúl 2007 - pain F. 01/10/ Mauser, 2007 M.D. Lisinopril 10/09/ Hx Tablets 2.5mg 90tabs 1 po qd Raúl 2007 - . user, 2007 M.D. Pravachol // Hx Tablets 10mg 90tabs 1/2 Unknown 0000 - tablet po 08/27/ qd 2013 Lisinopril / Hx Tablets 2.5mg 90tabs 1 po qd Raúl - F. user, 2017 M.D. Pravachol /00/ Hx Tablets 10mg 1 by Unknown 0000 - mouth 11/07/ every day 2017 Invokana /00/ Hx Tablets 100mg ShallShannon inman MD 2017 Metoprolol 00/ Hx Tablets 50mg Phil, Tartrate 0000 Genaro Jones MD 2017 Cyclobenzaprine / Hx Tablets 10mg Shallhneny, HCL 0000 Genaro Jones MD 2017 Invokana /00/ Hx Tablets 100mg Shannon Villarreal MD 2017 Rosuvastatin / Hx Tablets 10mg Take 1 Unknown Calcium 0000 - Tablet By Mouth 2017 Every Day Furosemide 00/ Hx Tablets 20mg 1 by Unknown 0000 - mouth every day 2017 Medications Administered in Office Medication Date Status Form Strength Qnty SIG Indications Ordering Provider Depomedrol Administered Injection Williams F 40MG Anastasiia Metzger MD Depomedrol Administered Injection Williams F 40MG Anastasiia Metzger MD Depomedrol Administered Injection Williams F 40MG Anastasiia Metzger MD Depomedrol Administered Injection Williams F 40MG Anastasiia Metzger MD Depomedrol Administered Injection Williams F 40MG Christie Metzger MD Depomedrol Administered Injection Williams F 40MG Christie Metzger MD Synvisc Or Administered Injection Williams Smart Synvisc-One Christie Metzger MD Injection 1 MG Synvisc Or Administered Injection Williams Smart Synvisc-One Christie Metzger MD Injection 1 MG Depomedrol Administered Injection Williams F 40MG Christie Metzger MD Depomedrol Administered Injection Williams F 40MG Christie Metzger MD Vital Signs Date Vital Result Comment 11/10/2017 Height 71 inches 5'11" Weight 250.00 lb Heart Rate 69 /min BP Systolic 124 mmHg BP Diastolic 77 mmHg Respiratory Rate 20 /min Body Temperature 97.3 F O2 % BldC Oximetry 94 % BMI (Body Mass Index) 34.9 kg/m2 09/27/2017 Height 71 inches 5'11" Weight 288.00 lb Heart Rate 86 /min BP Systolic 150 mmHg BP Diastolic 80 mmHg Respiratory Rate 16 /min Pain Level 10 BMI (Body Mass Index) 40.2 kg/m2 02/22/2017 Heart Rate 72 /min BP Systolic Sitting 128 mmHg BP Diastolic Sitting 79 mmHg Body Temperature 98.4 F 12/21/2016 Height 74 inches 6'2" Weight 303.00 lb Heart Rate 68 /min Respiratory Rate 14 /min Pain Level 9 BMI (Body Mass Index) 38.9 kg/m2 09/13/2016 Height 74 inches 6'2" Weight 303.00 lb Heart Rate 86 /min BP Systolic 123 mmHg BP Diastolic 67 mmHg Respiratory Rate 16 /min Pain Level 8 BMI (Body Mass Index) 38.9 kg/m2 07/12/2016 Height 74 inches 6'2" Weight 303.00 lb Respiratory Rate 16 /min Body Temperature 97.8 F Pain Level 8 BMI (Body Mass Index) 38.9 kg/m2 05/11/2016 Height 74 inches 6'2" Weight 303.00 lb Heart Rate 84 /min BP Systolic 127 mmHg BP Diastolic 76 mmHg Respiratory Rate 17 /min Body Temperature 97.8 F Pain Level 9 BMI (Body Mass Index) 38.9 kg/m2 04/22/2016 Height 74 inches 6'2" Weight 303.00 lb Heart Rate 82 /min Respiratory Rate 16 /min Body Temperature 97.5 F Pain Level 6 BMI (Body Mass Index) 38.9 kg/m2 08/27/2013 Height 74 inches 6'2" Weight 307.00 lb Heart Rate 92 /min BP Systolic Sitting 144 mmHg BP Diastolic Sitting 76 mmHg BMI (Body Mass Index) 39.4 kg/m2 06/09/2012 Height 74 inches 6'2" Weight 313.00 lb Heart Rate 56 /min BP Systolic 114 mmHg BP Diastolic 64 mmHg BMI (Body Mass Index) 40.2 kg/m2 07/29/2011 Height 74 inches 6'2" Weight 307.00 lb Heart Rate 66 /min BP Systolic Sitting 128 mmHg BP Diastolic Sitting 72 mmHg BMI (Body Mass Index) 39.4 kg/m2 12/02/2010 Height 74 inches 6'2" Weight 300.00 lb Heart Rate 70 /min BP Systolic Sitting 114 mmHg BP Diastolic Sitting 68 mmHg BMI (Body Mass Index) 38.5 kg/m2 06/17/2010 Height 74 inches 6'2" Weight 306.00 lb Heart Rate 66 /min BP Systolic 120 mmHg BP Diastolic 70 mmHg Respiratory Rate 18 /min BMI (Body Mass Index) 39.3 kg/m2 10/16/2009 Height 74 inches 6'2" Weight 300.00 lb Heart Rate 60 /min BP Systolic Sitting 126 mmHg BP Diastolic Sitting 82 mmHg BMI (Body Mass Index) 38.5 kg/m2 05/21/2009 Height 74 inches 6'2" Weight 308.00 lb Heart Rate 63 /min BP Systolic Sitting 152 mmHg L BP Diastolic Sitting 84 mmHg L BMI (Body Mass Index) 39.5 kg/m2 10/11/2008 Height 74 inches 6'2" Weight 306.00 lb Heart Rate 55 /min BP Systolic Sitting 130 mmHg L BP Diastolic Sitting 74 mmHg L BMI (Body Mass Index) 39.3 kg/m2 01/11/2008 Height 74 inches 6'2" Weight 308.00 lb Heart Rate 66 /min BP Systolic Sitting 130 mmHg BP Diastolic Sitting 72 mmHg Respiratory Rate 18 /min BMI (Body Mass Index) 39.5 kg/m2 10/10/2007 Height 74 inches 6'2" Weight 308.00 lb Heart Rate 68 /min BP Systolic Sitting 136 mmHg BP Diastolic Sitting 84 mmHg BP Systolic Standing 130 mmHg BP Diastolic Standing 80 mmHg BMI (Body Mass Index) 39.5 kg/m2 Results Test Date Test Result H/L Range Note Laboratory test finding 11/05/2008 CPK (Creatine Kinase) 218 U/L High 0- 200 1 Lipid Profile 11/05/2008 Triglyceride 58 mg/dL 40-200 1 (Trig/Chol/HDL) Cholesterol 119 mg/dL Less Than 200 1, 2 High Density Lipoprotein 38 mg/dL Low 40-60 1, 3 Cholesterol/HDL Ratio 3.13 AVERAGE 1-4.97 1 Low Density Lipoprotein 69 mg/dL Less Than 100 1, 4 Comp Metabolic Panel 11/05/2008 Sodium 138 mmol/L 135-145 1 Potassium 4.4 mmol/L 3.5-5.0 1 Chloride 101 mmol/L 101-111 1 Co2 (Carbon Dioxide) 28.0 mmol/L 22-32 1 Anion Gap 9.0 mmol/L 2-11 1, 5 Glucose 178 mg/dL High 70-100 1, 6 BUN 12 mg/dL 6-24 1 Creatinine 0.90 mg/dL 0.50-1.40 1 One Over Creatinine 1.10 1 BUN/Creatinine Ratio 13.3 8-20 1 Calcium 9.4 mg/dL 8.1-9.9 1, 7 Total Protein 6.1 GM/DL Low 6.2-8.1 1 Albumin 3.8 GM/DL 3.2-5.2 1 Globulin 2.3 GM/DL 2-4 1 Albumin/Globulin Ratio 1.7 1-3 1 Bilirubin Total 1.1 mg/dL 0.4-1.5 1, 8 Alkaline Phosphatase 68 U/L 39-117 1 Alt (SGPT) 24 U/L 17-63 1 Ast (Sgot) 21 U/L 12-42 1 eGFR Non- 90.6 > 60 1 eGFR 109.6 > 60 1, 9 1 FASTING 2 CHOLESTEROL INTERPRETATION: Desirable: Less than 200 MG/DL Borderline-High Risk: 200-239 MG/DL High-Risk: 240 MG/DL and over 3 HDL INTERPRETATION: Undesirable: High Risk: Less than 40 MG/DL Desirable: Low Risk: Greater than 60 MG/DL 4 LDL INTERPRETATION: Low Risk Optimal Level: LDL Less than 100 MG/DL Near or Above Optimal: LDL 100-129 MG/DL Borderline High Risk: LDL 130-159 MG/DL High Risk: LDL 160-189 MG/DL Very High Risk: LDL Greater than 189 MG/DL 5 Anion gap measurement may be of limited value in the presence of any alkalosis, especially in a combined acid base disorder. . 6 Note change in reference range as of 09/28/07. The change was based on recommendations from the [place] [employer]. 7 Please note change in reference range effective 07 . 8 A metabolite of Naproxen, O-desmethylnaproxen, has been shown to interfere with the Jendrassik-Javed method for measuring total bilirubin. Samples from patients who have taken Naproxen have shown spurious elevation in total bilirubin levels. 9 Because ethnic data is not always readily available, this report includes an eGFR for both -Americans and non- Americans. The National Kidney Disease Education Program (NKDEP) does not endorse the use of the MDRD equation for patients that are not between the ages of 18 and 70, are , have extremes of body size, muscle mass, or nutritional status, or are non- or non-. According to the National Kidney Foundation, irrespective of diagnosis, the stage of the disease is based on the level of kidney function: Stage Description GFR(mL/min/1.73 m(2)) 1 Kidney damage with normal or decreased GFR 90 2 Kidney damage with mild decrease in GFR 60-89 3 Moderate decrease in GFR 30-59 4 Severe decrease in GFR 15-29 5 Kidney failure <15 (or dialysis) Procedures Date CPT Code Description Status 09/27/2017 Inject/Drain Joint/Bursa Major W/O US Completed 02/22/2017 Inject/Drain Joint/Bursa Major W/O US Completed 09/13/2016 Inject/Drain Joint/Bursa Major W/O US Completed 05/11/2016 49296 Inject/Drain Joint/Bursa Major W/O US Completed 02/24/2016 17234 Inject/Drain Joint/Bursa Major W/O US Completed 12/03/2014 Colonoscopy Completed 08/27/2013 33796 EKG Tracing & Interpretation Completed 07/19/2013 Colonoscopy Completed 06/20/2012 65214 Treadmill Interp/Report Only Completed 06/20/2012 00386 Stress Test Supervsn W/Out I/R Completed 06/09/2012 64331 EKG Tracing & Interpretation Completed 07/29/2011 46504 EKG Tracing & Interpretation Completed 12/02/2010 57199 EKG Tracing & Interpretation Completed 06/17/2010 22203 EKG Tracing & Interpretation Completed 10/16/2009 28824 EKG Tracing & Interpretation Completed 05/21/2009 18123 EKG Tracing & Interpretation Completed 05/08/2009 27524 ECHO Transthoracic, Real-Time 2D With Doppler And Color Completed Flow 11/08/2008 28997 Treadmill Interp/Report Only Completed 11/08/2008 28035 Stress Test Supervsn W/Out I/R Completed 11/05/2008 39879 Stress ECHO Interpretation/Report Hospital Completed 11/05/2008 86639 Treadmill Interp/Report Only Completed 11/05/2008 08159 Stress Test Supervsn W/Out I/R Completed 10/11/2008 55219 EKG Tracing & Interpretation Completed 07/26/2008 Colonoscopy Completed 10/10/2007 71662 EKG Tracing & Interpretation Completed 10/10/2007 29712 EKG Tracing & Interpretation Completed 01/06/2007 Colonoscopy Completed 02/02/2002 Colonoscopy Completed Encounters Type Date Location Provider CPT E/M Dx Office Visit 11/04/2017 [facility] [place] [address] R10.10 7:00a R11.2 K59.00 D64.9 Office Visit 09/27/2017 8:00a [facility] 43779 M17.0 Karoline BRUNO M25.561 M25.562 Office Visit 02/22/2017 8:15a [facility] 85631 M17.0 Karoline BRUNO Office Visit 12/21/2016 8:00a [facility] 76031 M17.0 Karoline BRUNO Office Visit 09/13/2016 8:30a [facility], 54813 M17.0 Karoline BRUNO Office Visit 07/12/2016 8:30a [facility], 56858 M17.0 Karoline BRUNO Office Visit 04/22/2016 8:30a [facility], 91247 M17.0 Karoline BRUNO Office Visit 02/24/2016 2:00p [facility], 92688 M17.0 Karoline BRUNO Office Visit 07/20/2014 7:48p [facility], Mushtaq Coronado, [address] 486 Hospitalists M.D. 038.9 401.9 250.00 Office Visit 07/19/2014 7:47p [facility], Mushtaq Coronado, 80430 486 Hospitalists M.D. 038.9 401.9 250.00 Office Visit 07/18/2014 7:47p [facility], Bren Flannery, [address]383 486 Hospitalists D.O. 038.9 401.9 250.00 Office Visit 07/17/2014 7:46p [facility], Bren Flannery, 81448 486 Hospitalists D.O. 038.9 401.9 250.00 Office Visit 07/16/2014 7:45p [facility], Bren Flannery, 35671 486 Hospitalists D.O. 038.9 401.9 250.00 Office Visit 06/09/2012 9:50a [facility] Raúl Bermudez, 72721 414.01 M.D. 401.1 794.31 278.00 Office Visit 07/29/2011 9:20a [facility] Raúl Bermudez, 76376 414.01 M.D. 305.1 278.00 250.00 Office Visit 12/02/2010 9:40a [facility] Raúl Bermudez, 02829 250.00 M.D. 401.9 414.01 Office Visit 06/17/2010 9:00a [facility] Raúl Bermudez, 85529 250.00 M.D. 401.9 414.01 Office Visit 10/16/2009 8:40a [facility] Raúl Bermudez, 58581 250.00 M.D. 401.9 414.01 305.1 Office Visit 05/21/2009 3:00p [facility] Raúl Bermudez, 77689 250.00 M.D. 401.9 414.01 278.00 305.1 Office Visit 12/02/2008 2:15a [facility], Mushtaq Coronado, 45332 250.00 Hospitalists M.D. 401.9 682.6 Office Visit 12/01/2008 12:30a [facility], Milagros Musa, 48253 682.6 Hospitalists M.D. 250.02 305.1 278.00 Office Visit 11/30/2008 12:45a [facility], Milagros Musa, 12578 682.6 Hospitalists M.D. 250.02 305.1 278.00 Office Visit 10/11/2008 9:00a [facility] Raúl Bermudez M.D. 66931 272.0 401.1 410.72 250.00 Office Visit 01/11/2008 2:00p [facility] Raúl Bermudez M.D. 06569 272.0 401.1 410.72 Office Visit 10/10/2007 1:40p [facility] Raúl Bermudez M.D. 21299 272.0 250.00 401.1 410.72 Plan of Care Future Appointment(s):01/12/2018 9:00 am - Geovany Sneed MD at [facility]zy[facility]80/20/2018 8:00 am - Williams Metzger MD [facility]11/10/2017 - Geovany Sneed MDK26.0 Acute duodenal ulcer with hemorrhageFollow up:First week of January hereD64.9 Anemia, unspecifiedFollow up:First week of January hereZ79.899 Other [facility] (current ) drug therapyFollow up:First week january hereN18.9 Chronic kidney disease , unspecifiedFollow up:First week of January here
[2017-11-12] MEDS ORDERED: NS 0.9% 1000 ML* 1,000 ML IV ONE (21:40)
--- NOTE | 2017-11-12 22:14 | ED ---
Shortness of Breath - HPI Summary HPI Summary: Pt is a 71 year old M presenting to the ED with a chief complaint of shortness of breath. Hes been taking iron pills for the past 2-3 days due to constipation , and today he started having normal bowel movements. Around the same time, he got lightheaded, dizzy, and felt like he might pass out. The pt reports diaphoresis, tachypnea upon exertion, and also that he was in the hospital pretty recently. The pt denies chest pain, nausea, vomiting, and presently feels ok. He has a hx of enlarged prostate and diabetes. - History of Current Complaint Chief Complaint: EDShortnessOfBreath Time Seen by Provider: 11/12/17 21:42 Hx Obtained From: Patient Onset/Duration: Sudden Onset, Lasting Hours, Still Present Current Severity: Mild Dyspnea At: Exertion Aggrevating Factors: Movement, Deep Breaths Associated Signs & Symptoms: Negative - chest pain, nausea, vomiting - Allergy/Home Medications Allergies/Adverse Reactions: Allergies Allergy/AdvReac Type Severity Reaction Status Date / Time lisinopril Allergy Mild Itching Verified 11/12/17 21:42 simvastatin Allergy Unknown Verified 11/12/17 21:42 Reaction Details PMH/Surg Hx/FS Hx/Imm Hx Previously Healthy: No Endocrine/Hematology History: Reports: Hx Diabetes Denies: Hx Systemic Lupus Erythematosus Cardiovascular History: Reports: Hx Coronary Artery Disease, Hx Hypercholesterolemia, Hx Hypertension, Hx Myocardial Infarction Denies: Hx Congestive Heart Failure Respiratory History: Reports: Hx Pneumonia GI History: Reports: Other GI Disorders - umbilical hernia History: Denies: Hx Dialysis, Hx Renal Disease Musculoskeletal History: Denies: Hx Rheumatoid Arthritis Sensory History: Reports: Hx Contacts or Glasses - reading, Hx Hearing Problem - unable to hear some tones Denies: Hx Hearing Aid Opthamlomology History: Reports: Hx Contacts or Glasses - reading - Cancer History Hx Chemotherapy: No - Surgical History Surgery Procedure, Year, and Place: cardiac stent Infectious Disease History: No Infectious Disease History: Denies: Traveled Outside the [place] in Last 30 Days - Family History Known Family History: Positive: Cardiac Disease - Social History Alcohol Use: None Hx Substance Use: No Substance Use Type: Reports: None Hx Tobacco Use: Yes Smoking Status (MU): Former Smoker Type: Cigarettes Review of Systems Positive: Skin Diaphoresis Positive: Shortness Of Breath Negative: Abdominal Pain, Vomiting, Nausea All Other Systems Reviewed And Are Negative: Yes Physical Exam - Summary Physical Exam Summary: Appearance: Pallor, Well-nourished, lying in bed comfortable Skin: Warm, dry, no obvious rash Eyes: sclera anicteric, no conjunctival pallor ENT: mucous membranes moist Neck: deferred Respiratory: No signs of respiratory distress Cardiovascular: Borderline tachycardic, borderline hypertensive Abdomen: deferred Musculoskeletal: Moving all 4 extremities without obvious discomfort Neurological: Awake and alert, mentation is normal, speech is fluent and appropriate Psychiatric: affect is normal, does not appear anxious or depressed Triage Information Reviewed: Yes Vital Signs On Initial Exam: Initial Vitals Temp Pulse Resp BP Pulse Ox 98.2 F 102 19 101/72 100 11/12/17 21:36 11/12/17 21:36 11/12/17 21:36 11/12/17 21:36 11/12/17 21:36 Vital Signs Reviewed: Yes Diagnostics - Vital Signs Vital Signs Temp Pulse Resp BP Pulse Ox 11/12/17 21:49 99 11/12/17 21:36 98.2 F 102 19 101/72 100 - Laboratory Result Diagrams: 11/12/17 22:29 11/12/17 22:29 Lab Statement: Any lab studies that have been ordered have been reviewed, and results considered in the medical decision making process. - Radiology Chest XRay Xray Interpretation: No Acute Changes - No acute disease. Radiology Interpretation Completed By: ED Physician - Radiologist has not yet reviewed this report. 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 Course/Dx - Course Course Of Treatment: Pt is a 71 year old M presenting with a chief complaint of sob. He has been constipated the past couple of days, and he got his bowel movements back to normal today. He also got lightheaded and dizzy today, with tachypnea on exertion. He denies chest pain, n/v/d. He has a hx of diabetes and an enlarged prostate. This pt will be an admission to [facility], Dr. Garibay will be his accepting physician. - Diagnoses Provider Diagnoses: Severe anemia, Upper GI bleeding Discharge - Sign-Out/Discharge Documenting (check all that apply): Patient Departure - Discharge Plan Condition: Stable Disposition: ADMITTED TO [facility] - Billing Disposition and Condition Condition: STABLE Disposition: Admitted to [facility] - Attestation Statements Document Initiated by Claudia: Yes Documenting Scribe: Deloris Pappas Provider For Whom Claudia is Documenting (Include Credential): Prabhakar Sampson MD. Scribe Attestation: Deloris Carcamo, estered for Prabhakar Sampson MD. on 11/13/17 at 0409. Scribe Documentation Reviewed: Yes Provider Attestation: The documentation as recorded by the isisibe, Deloris Pappas accurately reflects the service I personally performed and the decisions made by me, Prabhakar Sampson MD. Consult Consult: [id number] - Spoke with Dr. Garibay who will be the accepting physician at [facility] for this patient.
[2017-11-12 22:47] LABS: Hematocrit 15 % (42-52); Mean Corpuscular HGB Conc 34 g/dl (31-36); Mean Corpuscular Hemoglobin 33 pg (27-31); Mean Corpuscular Volume 97 fL (80-94); Mean Platelet Volume 7.4 um3 (7.4-10.4); Platelet Count 223 10^3/ul (150-450); Red Blood Count 1.57 10^6/ul (4.00-5.40); Red Cell Distribution Width 16 % (10.5-15); White Blood Count 8.6 10^3/ul (3.5-10.8)
[2017-11-12 22:48] LABS: Hemoglobin 5.3 g/dl (14.0-18.0)
[2017-11-12 22:59] LABS: ABS Basophils 0 10^3/ul (0-0.2); ABS Eosinophils 0 10^3/ul (0-0.6); ABS Lymphocytes 0.9 10^3/ul (1.0-4.8); ABS Monocytes 0.4 10^3/ul (0-0.8); ABS Neutrophils 7.1 10^3/ul (1.5-7.7); ABS Nucleated RBC 0 10^3/ul; Eosinophil % 0.4 % (0-6); Lymphocyte % 10.6 % (25-47); Nucleated Red Blood Cells % 0.1
[2017-11-12] MEDS ORDERED: Metoprolol Tartrate IV* 1 MG/ML 5 ML VIAL IV PRN (23:49)
--- NOTE | 2017-11-13 00:55 | ADMNOTE ---
Subjective Date of Service: 11/11/17 - seen prior to midnnight Interval History: hpi 71 yr old wm with hx of poor compliance who was d/cd 3 days ago after egd showed duodenal ulcer ---> pt prob decided to leave despite he was d/cd hg was 7.3 was here after he fell very dizzy sweating harder to walk ---> has black stool but has recent ugib and on iron ---> hg today was 5.3 ---> pt would be transfuse with two units prbc and on protonix drip ---> this securities underwriter spoke with gi tennis professional reg pt would have repeat h/h q 6 ---> pt demands his opiods --- > morphine iv prn ordered instead. hx of cad with 2 stents placed 10 yrs ago on lopressor and asa ---> he has type ii dm and has been on oral dm meds last dose was today and last meal was 2-3 pm. pt was found to have urinary retention with bph hx ---> bladder scan ordered q 8 with pérez placed if volume > 400 cc intial ekg showed s tach at rate of 102 rbbb with old anterior q wave Family History: Findings - mom + cad dm father + cva dad + colon ca at age 80s Social History: Findings - hx of cig quit 6-7 yrs ago no etoh comes from home walks with a raine Past Medical History: Unchanged from Admission - type ii dm with nephropathy cad with mi s/p two stents placed 10 yrs ago last nuclear 4 yrs ago no gross abnormal reading beyond his baseline chronic leg edema non compliance hx of ugib 3-4 days ago chronic anemia on iron stage cri with creatinine baseline 2.3 morbid obesity prob elmer ( pt denied but daughter says he might have it ) chronic lbp on opiods unsteady gait due to chronic lbp walks with a raine pshx s/p left inqinal hernia repair hx of spine surgery Review of Systems - Measurements Intake and Output: Intake and Output Last 24 Hours 11/10/17 11/11/17 11/12/17 11/13/17 06:59 06:59 06:59 06:59 Weight 250 lb - Review of Systems General Comments: please refer to hpi for details the ros 01/18 reveiewed with him and denied beyond his baseline besides hpi c/o Objective Active Medications: Pantoprazole Sodium 80 mg/ (Sodium Chloride) 250 mls @ 25 mls/hr IVPB Q10H GERI Metoprolol Tartrate (Lopressor Iv*) 2.5 mg IV Q6H PRN PRN Reason: BLOOD PRESSURE Morphine Sulfate (Morphine Vial*) 2 mg IV Q6H PRN PRN Reason: PAIN Vital Signs - 8 hr 11/12/17 11/12/17 11/12/17 21:36 21:37 21:49 Temperature 98.2 F Pulse Rate 102 106 Respiratory 19 18 Rate Blood Pressure 101/72 101/72 (mmHg) O2 Sat by Pulse 100 99 99 Oximetry 11/12/17 11/12/17 11/12/17 21:52 22:00 22:07 Temperature Pulse Rate 103 Respiratory 28 34 21 Rate Blood Pressure 102/69 (mmHg) O2 Sat by Pulse 100 Oximetry 11/12/17 11/12/17 11/12/17 22:36 23:00 23:06 Temperature Pulse Rate 104 101 Respiratory 17 36 29 Rate Blood Pressure 98/57 100/64 (mmHg) O2 Sat by Pulse 97 100 Oximetry 11/12/17 11/12/17 11/13/17 23:30 23:37 00:00 Temperature Pulse Rate 104 108 109 Respiratory 19 23 18 Rate Blood Pressure 95/71 (mmHg) O2 Sat by Pulse 100 100 100 Oximetry 11/13/17 11/13/17 00:06 00:21 Temperature 98.3 F Pulse Rate 104 78 Respiratory 24 18 Rate Blood Pressure 109/64 145/82 (mmHg) O2 Sat by Pulse 100 99 Oximetry Oxygen Devices in Use Now: Nasal Cannula Eyes: No Scleral Icterus, PERRLA Ears/Nose/Mouth/Throat: NL Teeth, Lips, Gums, Clear Oropharnyx, Mucous Membranes Moist Neck: NL Appearance and Movements; NL JVP, Trachea Midline, No Thyroid Enlargement, Masses Respiratory: Symmetrical Chest Expansion and Respiratory Effort, Clear to Auscultation Cardiovascular: NL Sounds; No Murmurs; No JVD, RRR Abdominal: NL Sounds; No Tenderness; No Distention Extremities: - Skin: No Rash or Ulcers, No Nodules or Sclerosis, - - pale looking Neurological: Alert and Oriented x 3, NL Sensation, NL Muscle Strength and Tone Result Diagrams: 11/12/17 22:29 11/12/17 22:29 Assess/Plan/Problems-Billing Assessment: hx of noncompliance cad on asa hx of ckd stage 4 dm with hx of recent duodenal ulcer few days ago presented back with c/o of feeling weak /dizzy ---> his initial hg was 5.3 <---7.3 few days ago prior to d/c with baseline hg 10 ---> gi was called by this securities underwriter to eval him in am pt was written for two units prbc and on protonix drip - Patient Problems (1) CAD (coronary artery disease) Current Visit: No Status: Acute Code(s): I25.10 - ATHSCL HEART DISEASE OF [place] CORONARY ARTERY W/O ANG PCTRS SNOMED Code(s): 95223587 Comment: Stable. strict npo tele lopressor iv 2.6 q 6 with holding parameter (2) UGI bleed Current Visit: Yes Status: Acute Code(s): K92.2 - GASTROINTESTINAL HEMORRHAGE, UNSPECIFIED SNOMED Code(s): 84720438 Comment: strict npo gi was called by this securities underwriter h/h q 6 after transfusion protonix drip (3) Chronic renal failure, stage 4 (severe) Current Visit: Yes Status: Acute Code(s): N18.4 - CHRONIC KIDNEY DISEASE, STAGE 4 (SEVERE) SNOMED Code(s): 28269634 Comment: stable moniter urine oupt and lytes (4) Type II diabetes mellitus Current Visit: Yes Status: Acute Comment: strict npo sugar is 274 pt has been on oral meds ---> will do intermediate insulin sliding scale (5) Acute on chronic blood loss anemia Current Visit: Yes Status: Acute Code(s): D60.0 - CHRONIC ACQUIRED PURE RED CELL APLASIA SNOMED Code(s): 690138779 Comment: two units prbc written from er h/h q 6 hr (6) Back pain Current Visit: No Status: Acute Code(s): M54.9 - DORSALGIA, UNSPECIFIED SNOMED Code(s): 614972478 Comment: - will do morphine 2.5 q 6 hr prn (7) Noncompliance Current Visit: Yes Status: Acute Code(s): Z91.19 - PATIENT'S NONCOMPLIANCE W OTH MEDICAL TREATMENT AND REGIMEN SNOMED Code(s): 9349312 (8) Unsteady gait Current Visit: Yes Status: Acute Code(s): R26.81 - UNSTEADINESS ON FEET SNOMED Code(s): 82848949 Comment: moniter walks with raine pt ab on tuesday (9) BPH (benign prostatic hyperplasia) Current Visit: Yes Status: Acute Code(s): N40.0 - BENIGN PROSTATIC HYPERPLASIA WITHOUT LOWER URINRY TRACT SYMP SNOMED Code(s): 137653876 Comment: urinary inc - bladder scan q 8 hr if volume >[address] pérez
[2017-11-13] MEDS: Pantoprazole IV* 40 MG IV ONE ×2 (01:14→03:51)
[2017-11-13] MEDS ORDERED: Dextrose 50% Syringe 50 ML* 25 GM/50 ML SYRINGE IV PUSH PRN (01:22)
[2017-11-13] MEDS: Morphine VIAL* 4 MG/ML VIAL (1 ml vial) IV PRN ×3 (03:51→22:11)
[2017-11-13] MEDS ORDERED: NS 0.9% 500 ML* 500 ML IV ONE (04:17)
[2017-11-13] MEDS ORDERED: Insulin LISPRO* 1 UNITS UNIT SUBCUT ONE (06:04)
[2017-11-13] MEDS: Insulin LISPRO* 1 UNITS UNIT SUBCUT SCH ×3 (06:17→18:44)
[2017-11-13] MEDS: Pantoprazole IV* 80 MG in NS 0.9% 250 ML* 250 ML IVPB SCH ×3 (07:24→18:25)
[2017-11-13] MEDS ORDERED: NS 0.9% 1000 ML* 1,000 ML IV SCH (07:30)
--- NOTE | 2017-11-13 07:37 | PN ---
Subjective Date of Service: 11/13/17 Interval History: Pt states he is feeling so-so. His biggest complaint right now is that he is very thirsty and wants a drink of tea. He does not feel light headed while lying back but he has felt very light headed upon trying to sit up. He states when he left the hospital last he was quite constipated from taking iron. He used a laxative at home and had a BM prior to coming to the hospital. His stool was reportedly dark. He denies any CP or SOB currently. He does not use O2 at home. He denies any abdominal pain. Objective Active Medications: Dextrose (D50w Syringe 50 Ml*) 12.5 gm IV PUSH .FOR FS < 60 - SS PRN PRN Reason: FS < 60 Pantoprazole Sodium 80 mg/ (Sodium Chloride) 250 mls @ 25 mls/hr IVPB Q10H [facility] Last Admin: 11/13/17 07:24 Dose: 25 mls/hr Sodium Chloride (Ns 0.9% 1000 Ml*) 1,000 mls @ 150 mls/hr IV PER RATE [facility] Stop: 11/13/17 14:09 Insulin Human Lispro (Humalog*) 0 units SUBCUT Q6HR [facility]; Protocol Last Admin: 11/13/17 06:17 Dose: Not Given Morphine Sulfate (Morphine Vial*) 2 mg IV Q6H PRN PRN Reason: PAIN Last Admin: 11/13/17 03:51 Dose: 2 mg Vital Signs - 8 hr 11/12/17 11/13/17 11/13/17 23:37 00:00 00:06 Temperature Pulse Rate 108 109 104 Respiratory 23 18 24 Rate Blood Pressure 95/71 109/64 (mmHg) O2 Sat by Pulse 100 100 100 Oximetry 11/13/17 11/13/17 11/13/17 00:10 00:21 01:10 Temperature 97.4 F 98.3 F Pulse Rate 120 78 102 Respiratory 24 18 Rate Blood Pressure 132/55 145/82 115/60 (mmHg) O2 Sat by Pulse 93 99 Oximetry 11/13/17 11/13/17 11/13/17 01:25 03:51 04:05 Temperature 98.7 F Pulse Rate 110 117 Respiratory 20 20 Rate Blood Pressure 76/52 (mmHg) O2 Sat by Pulse 100 100 Oximetry 11/13/17 11/13/17 04:07 06:34 Temperature Pulse Rate 129 Respiratory 18 22 Rate Blood Pressure 96/56 (mmHg) O2 Sat by Pulse 98 Oximetry Oxygen Devices in Use Now: Nasal Cannula - 4L-100% Appearance: Elderly male lying in bed, pale, diaphoretic appearing, NAD Eyes: No Scleral Icterus Ears/Nose/Mouth/Throat: - - tacky oral mucous membranes Respiratory: Symmetrical Chest Expansion and Respiratory Effort, Clear to Auscultation - anteriorly Cardiovascular: - - tachycardic but regular, 2-3+ B/L LE edema Abdominal: NL Sounds; No Tenderness; No Distention - obese Extremities: No Clubbing, Cyanosis Skin: No Nodules or Sclerosis Neurological: Alert and Oriented x 3 Result Diagrams: 11/12/17 22:29 11/12/17 22:29 Assess/Plan/Problems-Billing Mr Reynoso is a 71 yo M who was just hospitalized from 11/03/17-11/08/17 where he was treated for acute blood loss anemia secondary to an UGIB from a duodenal ulcer and acute renal failure. The patient returned to the ER on 11/12/17 with c/ o SOB and lightheadedness and was found to have a Hb of 5.3 and was readmitted for probable UGIB with possible hemorrhagic shock. - Patient Problems (1) Hemorrhagic shock Current Visit: Yes Status: Acute Code(s): R57.8 - OTHER SHOCK SNOMED Code( s): 284126 Comment: The patient's BP has dropped and consistently been in the 90's systolic since admission. He is symptomatic (lightheaded). Will continue to replace volume with NS and blood. Will likely need another couple units of PRBC today. He has already received 2 units. (2) UGI bleed Current Visit: Yes Status: Acute Code(s): K92.2 - GASTROINTESTINAL HEMORRHAGE, UNSPECIFIED SNOMED Code(s): 86183359 Comment: Continue NPO status. GI consult pending. I question if he will need repeat scope to see if he is actively bleeding from the previously identified duodenal ulcer at this time. He has recevied 2 units PRBC and will likely need more. Continue protonix drip. (3) BPH (benign prostatic hyperplasia) Current Visit: Yes Status: Acute Code(s): N40.0 - BENIGN PROSTATIC HYPERPLASIA WITHOUT LOWER URINRY TRACT SYMP SNOMED Code(s): 255380509 Comment: Pt has a h/o urinary retention and last hospitalization refused to have a pérez placed due to pain. He understood at that time his renal function may deteriorate due to the retention. Will monitor for now. (4) Chronic renal failure, stage 4 (severe) Current Visit: Yes Status: Acute Code(s): N18.4 - CHRONIC KIDNEY DISEASE, STAGE 4 (SEVERE) SNOMED Code(s): 82217981 Comment: Creatinine is relatively stable from prior admission. He is intravascularly volume deplete as evidenced by his hypotension and urine specific gravity of >1.060. He is receiving blood and NS. Will monitor BP, volume status and creatinine. His K is mildly elevated at 5.3. Will need to monitor this closely. (5) CAD (coronary artery disease) Current Visit: Yes Status: Acute Code(s): I25.10 - ATHSCL HEART DISEASE OF [place] CORONARY ARTERY W/O ANG PCTRS SNOMED Code(s): 25833517 Comment: Pt was d/israel home to continue on baby ASA. This is on hold. He has no c/o chest pain at this time. Monitor for symptoms. (6) Type II diabetes mellitus Current Visit: Yes Status: Acute Comment: Check finger sticks q6hr and cover with sliding scale. Check [id number] checked in our system in 2014. Oral meds held due to his worsened renal function. (7) HTN (hypertension) Current Visit: Yes Status: Acute Code(s): I10 - ESSENTIAL (PRIMARY) HYPERTENSION SNOMED Code(s): 71465100 Comment: Pt is currently hypotensive. His home meds are on hold however he was taking his metoprolol tartrate at home. (8) HLD (hyperlipidemia) Current Visit: Yes Status: Acute Code(s): E78.5 - HYPERLIPIDEMIA, UNSPECIFIED SNOMED Code(s): 71941107 Comment: Statin on hold due to elevated CPKs previously. (9) Back pain Current Visit: Yes Status: Acute Code(s): M54.9 - DORSALGIA, UNSPECIFIED SNOMED Code(s): 624243242 Comment: Chronic. Conitnue prn morphine cautiously given his hypotension. (10) DVT prophylaxis Current Visit: No Status: Acute Code(s): WQQ3226 - SNOMED Code(s): 495397660 Comment: SCDs (11) Full code status Current Visit: Yes Status: Acute Code(s): Z78.9 - OTHER SPECIFIED HEALTH STATUS SNOMED Code(s): 373009575
--- NOTE | 2017-11-13 08:40 | OP ---
Operative Report - Blank - Operative Report Date of Operation: 11/13/17 Note: Central Venous Catheter (CVC, Central Line) Placement Date: 11/13/17 Time: 800a Indication: Hemodynamic monitoring/Intravenous access Attending: Cara Becker time-out was completed verifying correct patient, procedure, site, positioning , and special equipment if applicable. The patient was placed in a dependent position appropriate for central line placement based on the vein to be cannulated. The patients right groin was prepped and draped in sterile fashion. 1% Lidocaine was used to anesthetize the surrounding skin area. A triple lumen 7-Bengali catheter was introduced into the the common femoral vein using the Seldinger technique and under ultrasound guidance. The catheter was threaded smoothly over the guide wire and appropriate blood return was obtained. Each lumen of the catheter was evacuated of air and flushed with sterile saline. The catheter was then sutured in place to the skin and a sterile dressing applied. Perfusion to the extremity distal to the point of catheter insertion was checked and found to be adequate. Estimated Blood Loss: none The patient tolerated the procedure well and there were no complications.
--- NOTE | 2017-11-13 09:06 | RAD ---
INDICATION: Shortness of breath. Diaphoresis. COMPARISON: November 06, 2017 TECHNIQUE: Dual energy PA and routine lateral views of the chest were obtained. REPORT: Unchanged mild elevation of the LEFT hemidiaphragm. Unchanged elevated lung volumes and mild prominence of the interstitial markings. No focal pulmonary lesion, compelling alveolar consolidation, pleural effusion, pneumothorax. Upper normal heart size. Unremarkable central pulmonary vasculature and mediastinal contours. IMPRESSION: #. Stigmata of obstructive lung disease. No acute pulmonary or cardiac process evident. R0
[2017-11-13 09:52] LABS: EGFR Non-African American 27.1 (>60)
[2017-11-13 09:54] LABS: ABS Basophils 0 10^3/ul (0-0.2); ABS Eosinophils 0 10^3/ul (0-0.6); ABS Lymphocytes 1.5 10^3/ul (1.0-4.8); ABS Monocytes 0.7 10^3/ul (0-0.8); ABS Neutrophils 8.2 10^3/ul (1.5-7.7); ABS Nucleated RBC 0 10^3/ul; Eosinophil % 0.2 % (0-6); Hematocrit 15 % (42-52); Hemoglobin 5.3 g/dl (14.0-18.0); Lymphocyte % 14.7 % (25-47); Mean Corpuscular HGB Conc 34 g/dl (31-36); Mean Corpuscular Hemoglobin 32 pg (27-31); Mean Corpuscular Volume 93 fL (80-94); Mean Platelet Volume 7.9 um3 (7.4-10.4); Nucleated Red Blood Cells % 0.1; Platelet Count 199 10^3/ul (150-450); Red Blood Count 1.64 10^6/ul (4.00-5.40); Red Cell Distribution Width 16 % (10.5-15); White Blood Count 10.5 10^3/ul (3.5-10.8)
[2017-11-13] MEDS: Lidocaine PATCH 5%* 1 PATCH TRANSDERM SCH (12:33)
[2017-11-13 15:13] LABS: Hematocrit 18 % (42-52); Hemoglobin 6.1 g/dl (14.0-18.0); Mean Corpuscular HGB Conc 35 g/dl (31-36); Mean Corpuscular Hemoglobin 31 pg (27-31); Mean Corpuscular Volume 90 fL (80-94); Mean Platelet Volume 7.9 um3 (7.4-10.4); Platelet Count 156 10^3/ul (150-450); Red Blood Count 1.97 10^6/ul (4.00-5.40); Red Cell Distribution Width 16 % (10.5-15)
[2017-11-13 15:40] LABS: ABS Basophils 0.1 10^3/ul (0-0.2); ABS Eosinophils 0 10^3/ul (0-0.6); ABS Monocytes 0.6 10^3/ul (0-0.8); ABS Neutrophils 9.4 10^3/ul (1.5-7.7); ABS Nucleated RBC 0 10^3/ul; Eosinophil % 0 % (0-6); Lymphocyte % 9.1 % (25-47); Nucleated Red Blood Cells % 0
[2017-11-13 16:05] LABS: Urine Appearance Clear; Urine Blood Negative (Negative); Urine Color Yellow; Urine Ketones Negative (Negative); Urine Protein Negative (Negative); Urine Red Blood Cell Trace(0-2/hpf) (Absent); Urine Specific Gravity 1.015 (1.010-1.030); Urine Urobilinogen Negative (Negative); Urine White Blood Cell Trace(0-5/hpf) (Absent)
[2017-11-13] MEDS ORDERED: fentaNYL* 50 MCG/ML 2 ML VIAL (100 MCG VIAL) ONE (16:06)
[2017-11-13] MEDS ORDERED: Midazolam* 1 MG/ML 10 ML VIAL (10 MG) ONE (16:06)
[2017-11-13 18:27] LABS: ABS Basophils 0.1 10^3/ul (0-0.2); ABS Eosinophils 0 10^3/ul (0-0.6); ABS Lymphocytes 1.1 10^3/ul (1.0-4.8); ABS Monocytes 0.8 10^3/ul (0-0.8); ABS Neutrophils 11.7 10^3/ul (1.5-7.7); ABS Nucleated RBC 0 10^3/ul; Eosinophil % 0 % (0-6); Hematocrit 19 % (42-52); Hemoglobin 6.5 g/dl (14.0-18.0); Mean Corpuscular HGB Conc 34 g/dl (31-36); Mean Corpuscular Hemoglobin 31 pg (27-31); Mean Corpuscular Volume 90 fL (80-94); Mean Platelet Volume 8.6 um3 (7.4-10.4); Nucleated Red Blood Cells % 0.2; Platelet Count 136 10^3/ul (150-450); Red Blood Count 2.11 10^6/ul (4.00-5.40); Red Cell Distribution Width 16 % (10.5-15); White Blood Count 13.5 10^3/ul (3.5-10.8)
[2017-11-13 18:54] LABS: INR 1.07 (0.77-1.02)
[2017-11-13] MEDS: Lidocaine Patch REMOVE* 1 NOTE MISC SCH (21:16)
[2017-11-13] MEDS: Insulin GLARGINE(*) 1 UNITS UNIT SUBCUT SCH (21:16)
[2017-11-13 22:37] LABS: ABS Basophils 0 10^3/ul (0-0.2); ABS Eosinophils 0 10^3/ul (0-0.6); ABS Lymphocytes 1.2 10^3/ul (1.0-4.8); ABS Monocytes 0.9 10^3/ul (0-0.8); ABS Neutrophils 12.2 10^3/ul (1.5-7.7); ABS Nucleated RBC 0 10^3/ul; Eosinophil % 0 % (0-6); Hematocrit 25 % (42-52); Hemoglobin 8.5 g/dl (14.0-18.0); Lymphocyte % 8.4 % (25-47); Mean Corpuscular HGB Conc 35 g/dl (31-36); Mean Corpuscular Hemoglobin 31 pg (27-31); Mean Corpuscular Volume 90 fL (80-94); Nucleated Red Blood Cells % 0.1; Platelet Count 129 10^3/ul (150-450); Red Blood Count 2.73 10^6/ul (4.00-5.40); Red Cell Distribution Width 15 % (10.5-15); White Blood Count 14.4 10^3/ul (3.5-10.8)
[2017-11-14] MEDS: Insulin LISPRO* 1 UNITS UNIT SUBCUT SCH ×4 (00:06→19:33)
[2017-11-14] MEDS: Morphine VIAL* 4 MG/ML VIAL (1 ml vial) IV PRN ×2 (02:17→19:54)
[2017-11-14 04:11] LABS: ABS Basophils 0.2 10^3/ul (0-0.2); ABS Eosinophils 0 10^3/ul (0-0.6); ABS Lymphocytes 1.6 10^3/ul (1.0-4.8); ABS Neutrophils 13.2 10^3/ul (1.5-7.7); ABS Nucleated RBC 0 10^3/ul; Eosinophil % 0.1 % (0-6); Hematocrit 24 % (42-52); Lymphocyte % 9.8 % (25-47); Mean Corpuscular HGB Conc 34 g/dl (31-36); Mean Corpuscular Hemoglobin 31 pg (27-31); Mean Corpuscular Volume 90 fL (80-94); Mean Platelet Volume 8.2 um3 (7.4-10.4); Nucleated Red Blood Cells % 0.1; Platelet Count 134 10^3/ul (150-450); Red Blood Count 2.62 10^6/ul (4.00-5.40); Red Cell Distribution Width 15 % (10.5-15)
[2017-11-14] MEDS: Pantoprazole IV* 80 MG in NS 0.9% 250 ML* 250 ML IVPB SCH ×2 (04:20→18:23)
[2017-11-14 04:29] LABS: EGFR Non-African American 21.6 (>60)
--- NOTE | 2017-11-14 04:37 | CONS ---
CONSULTATION REPORT: DATE OF CONSULT: 11/13/17 REQUESTING PHYSICIAN: Dr. Flannery. REASON FOR CONSULT: Acute blood loss anemia. HISTORY OF PRESENT ILLNESS: This is a 71-year-old male patient with a history of CAD, MO, diabetes, hyperlipidemia, hypertension, and chronic back pain for which he is taking large amounts of ibuprofen. He was recently hospitalized on 11/03/17 and was found to have anemia and fatigue. His baseline has been 13 and he was down to the mid 9s on this admission. His BUN was 80 and his creatinine was 3.3. He is a reluctant historian and his provides a lot of the history. He has been having upper abdominal pain after meals and increasing use of Tums along with his ibuprofen use for his chronic back pain. Occasionally, he had emesis after meals and nausea at times as well. He underwent upper endoscopy by Dr. Sneed and he just found the duodenal ulceration. The patient was later discharged with a hemoglobin of 7.7. At home , he was taking iron therapy 1 to 3 times a day, still consuming some aspirin, but had decreased his NSAID use. He states that his stool was black, but it was hard to tell if this was overt melena or secondary to the iron therapy. He then had increased fatigue and weakness and felt lightheaded and dizzy and presented to the ER on 11/12/17 and was found to have a hemoglobin of 5.3. Currently, he denies any abdominal pain. No dysphagia or odynophagia. He is unsure if he has had a significant bowel movement with any black or blood in the stool. Denies any unintentional weight loss. Denies any fever, chills, or aches. He states he is just hungry. He is quite cantankerous. The remainder of the 14- point review of systems is grossly negative. PAST MEDICAL HISTORY: Includes morbid obesity, CKD, CAD, and diabetes. PAST SURGICAL HISTORY: He had recent upper endoscopy on 11/03/17. He had previous colonoscopy with Dr. Romero years ago with multiple polyps that were removed. He was due for surveillance endoscopy in the coming months with myself. Laminectomy, tonsillectomy, hernia repair, and cardiac catheterization with stenting. ALLERGIES TO MEDICATIONS: Include LISINOPRIL and SIMVASTATIN. SOCIAL HISTORY: Prior smoker, quit in 2011. Does not drink alcohol. REVIEW OF SYSTEMS: The remainder of the 14-point review of systems was grossly negative. PHYSICAL EXAM: Vital Signs: Current blood pressure is 121/69, pulse is 100, respiratory rate is 20, he is 100% on room air, afebrile. In general, he is alert and oriented, in no acute distress. HEENT: Atraumatic, normocephalic. Pupils are equal, round, reactive to light. Conjunctivae slightly pale. Sclerae are anicteric. Neck is supple. Trachea midline. Cardiovascular: Tachycardic. S1, S2. Respiratory: Slightly diminished at the bases bilaterally. Abdomen is soft, nontender, morbidly obese. Bowel sounds positive. Extremities: Edema bilaterally with ecchymoses. Neuro Exam: He moves all extremities. Skin: Multiple ecchymoses noted throughout his body. LABORATORY DATA: Hemoglobin on admission 5.3. He received 2 units of blood cells and remained at 5.3. He received an additional 2 units and is now 6.1. His INR is 1.02. Lactic acid was 2.6 on admission. BUN is 54, creatinine is 2.37. His CRP is 124. ASSESSMENT AND PLAN: This is a 71-year-old male presenting with further probable acute blood loss anemia. 1. Acute blood loss anemia. We will plan on emergent upper endoscopy. His blood pressure and heart rate have improved post transfusion and resuscitation after central line placement. There was a delay initially in the Protonix therapy secondary to poor access prior to the placement of the central line. He is now on continuous IV Protonix therapy. We will continue to do an H and H every 6 hours, transfuse for a goal of greater than 7. Given that his hemodynamics have improved at this time, we will plan for urgent upper endoscopy to evaluate his prior duodenal ulceration to rule out an upper GI source of again recurrent blood loss anemia. 2. Coronary artery disease, on aspirin therapy. 3. History of colon polyps. Will eventually need followup colonoscopy if upper endoscopy is negative. We will consider colonoscopy as an inpatient. 4. Morbid obesity. [id number]/[facility] #: [id number] [facility]OSPITALGermania
--- NOTE | 2017-11-14 05:10 | PRO ---
CC: Dr. Robert Villarreal; Dr. Geovany Sneed * DATE OF PROCEDURE: 11/13/17 - ROOM #ICU-6 INDICATION FOR PROCEDURE: Acute blood loss anemia, recent duodenal ulceration. PROCEDURE PERFORMED: Esophagogastroduodenoscopy with push enteroscopy. MEDICATIONS GIVEN: Include 9 mg IV midazolam, 75 mcg IV fentanyl. DESCRIPTION OF PROCEDURE: After the EGD with push enteroscopy procedure including the risks, benefits, and alternatives not limited to perforation, surgery, missed lesions, and/or were explained to the patient, written consent was then obtained. IV medication was given and a bite-block was placed between the teeth. Initially, the Olympus gastroscope was inserted into the patient's mouth and advanced down the esophagus into the stomach and into the distal duodenum. In the esophagus, the tubular esophagus was grossly normal in appearance and the stomach had some black old blood. This was thoroughly washed without having any evidence of lesions or active bleeding. The scope was then advanced through the widely patent pylorus into the duodenal bulb. The bulb itself had fresher blood with more of a red appearance and into the C- loop, there was fresher blood as well. At the C- loop, at the distal portion of it, there is a 1 cm ulceration that did have a visible vessel. This is not actively bleeding at the time; however, there was fresh blood around the area. I did place an endo clip on the visible vessel with good effect. There was no bleeding afterwards. A clip was attempted to be placed over the visible vessel , but was actually placed on at the next fold, so a second clip had be placed for good effect over the vessel. However, there was blood distal to this when I pushed as far as I could with the adult gastroscope. Given that blood was still visible distal to this, I introduced a pediatric colonoscope to do an emergent push enteroscopy because of the bleeding and pushed as deep as I could and reached the proximal jejunum. Some scant blood that was red in appearance was identified; however, no visible lesions were identified or ulcerations in the area examined to the proximal jejunum. The scope was then withdrawn from the patient. He tolerated the procedure well. He remained in the ICU in stable condition. IMPRESSION: 1. Esophagogastroduodenoscopy with push enteroscopy into the proximal jejunum with placement of 2 endoscopic clips. 2. Endoscopic placement of endoscopic clips over visible vessel with good effect. 3. Small bowel etiology of acute blood loss anemia, possible source as duodenal C-loop ulceration but question if deeper small bowel source. RECOMMENDATIONS: He does have an ulcer with the visible vessel. I did clip this with good effect; however, I am not sure if this has explained his blood loss anemia as there was some blood noted distal. It is unsure if this blood was from this ulcer that had stopped bleeding and we are just seeing the distal effect of this or if there was an active source that had reflexed to the more proximal small bowel. I did use the pediatric colonoscope to get as deep as I could and I did reach proximal jejunum and there was no evidence of any active bleeding or source, but there was some scant old red blood. There was some scant red blood throughout the area. I extensively irrigated and washed, and looked at this area on the way back, I did not find any ulcerations or lesions. The only culprit that I could find was the duodenal C-loop ulcer that I had clipped, and after the conclusion of the procedure, the area that I examined did not have any evidence of active bleeding. However, I would check a repeat hemoglobin level. If his hemoglobin level is still not rising appropriately, I would consider a deeper small bowel source as the etiology. We could consider either a nuclear medicine bleeding scan or direct transfer to [facility] for possible enteroscopy for this lesion or IR ablation if active lesion is identified. I do not believe any further endoscopic therapy on my end will be of utility as it is likely deeper into the small bowel. It certainly does not appear chronic in nature given the red blood visualized in the small bowel. I discussed this with Dr. Marroquin, the teacher of family and consumer science, and updated the family of the plan as well. [id number]/[facility] #: [id number] RAYRAY
[2017-11-14] MEDS ORDERED: Acetaminophen IV 1GM/100ML * 1,000 MG/100 ML VIAL IVPB ONE (08:38)
--- NOTE | 2017-11-14 08:59 | PN ---
Date of Service: 11/14/17 Critical Care Services: 71M with htn, hld, dm, bph, ckd, cad presents with UGI bleed 11/14: EGD yesterday showing duodenal ulcer with visible vessel treated with hemoclip. BP imrpoved. Vital Signs: Temp Pulse Resp BP SpO2 FiO2 98.2 F 101 17 148/79 98 11/14/17 07:48 11/14/17 07:31 11/14/17 07:31 11/14/17 07:31 11/14/17 07:31 Physical Exam: Gen - nad heent - ncat, eomi, perrl neck - no jvd cv - s1/s2, tachy lungs - cta abd - soft, nt ext - no edema Neuro - non-focal Fluid Balance (Past 24 Hours): I= O= Net Intake & Output 11/12/17 11/13/17 11/14/17 11/15/17 06:59 06:59 06:59 06:59 Intake Total 775 4846 0 Output Total 0 360 Balance 775 4486 0 Weight 126.87 kg Intake: IV Fluids 500 998 NS (0.9%) 500 998 IVPB 1365 NS (0.9%) 1365 Medicated IV 556 protonix 556 Oral 0 75 0 Whole Blood 216 Packed Cells 275 1636 Output: Urine 0 360 Other: Date of Last Bowel 11/13/17 Movement # Bowel Movements 0 2 Estimated Stool Amount Large # Voids 1 Labs: Laboratory Results - last 24 hr 11/12/17 11/13/17 11/13/17 22:29 08:46 08:46 WBC 10.5 RBC 1.64 L Hgb 5.3 L* Hct 15 L MCV 93 MCH 32 H MCHC 34 RDW 16 H Plt Count 199 MPV 7.9 Neut % (Auto) 78.3 Lymph % (Auto) 14.7 L [place] % (Auto) 6.4 Eos % (Auto) 0.2 Baso % (Auto) 0.4 Absolute Neuts (auto) 8.2 H Absolute Lymphs (auto) 1.5 Absolute Monos (auto) 0.7 Absolute Eos (auto) 0 Absolute Basos (auto) 0 Absolute Nucleated RBC 0 Nucleated RBC % 0.1 INR (Anticoag Therapy) APTT Sodium Potassium Chloride Carbon Dioxide Anion Gap BUN Creatinine Est GFR ( Amer) Est GFR (Non-Af Amer) BUN/Creatinine Ratio Glucose POC Glucose (mg/dL) Lactic Acid 2.6 H* Calcium Magnesium Total Bilirubin AST ALT Alkaline Phosphatase Total Creatine Kinase Total Protein Albumin Globulin Albumin/Globulin Ratio Urine Color Urine Appearance Urine pH Ur Specific [place] Urine Protein Urine Ketones Urine Blood Urine Nitrate Urine Bilirubin Urine Urobilinogen Ur Leukocyte Esterase Urine WBC (Auto) Urine RBC (Auto) Urine Bacteria Hyaline Casts Urine Glucose Blood Type O Positive Antibody Screen Negative Crossmatch See Detail 11/13/17 11/13/17 11/13/17 08:46 12:21 14:52 WBC 11.0 H RBC 1.97 L Hgb 6.1 L* Hct 18 L MCV 90 MCH 31 MCHC 35 RDW 16 H Plt Count 156 MPV 7.9 Neut % (Auto) 85.3 H Lymph % (Auto) 9.1 L [place] % (Auto) 5.1 Eos % (Auto) 0 Baso % (Auto) 0.5 Absolute Neuts (auto) 9.4 H Absolute Lymphs (auto) 1.0 Absolute Monos (auto) 0.6 Absolute Eos (auto) 0 Absolute Basos (auto) 0.1 Absolute Nucleated RBC 0 Nucleated RBC % 0 INR (Anticoag Therapy) APTT Sodium 137 Potassium 4.6 Chloride 107 Carbon Dioxide 23 Anion Gap 7 BUN 54 H Creatinine 2.37 H Est GFR ( Amer) 32.8 Est GFR (Non-Af Amer) 27.1 BUN/Creatinine Ratio 22.8 H Glucose 275 H POC Glucose (mg/dL) 335 H Lactic Acid Calcium 7.1 L Magnesium Total Bilirubin 0.40 AST 10 L ALT 11 Alkaline Phosphatase 45 Total Creatine Kinase 50 Total Protein 3.4 L Albumin 2.0 L Globulin 1.4 L Albumin/Globulin Ratio 1.4 Urine Color Urine Appearance Urine pH Ur Specific [place] Urine Protein Urine Ketones Urine Blood Urine Nitrate Urine Bilirubin Urine Urobilinogen Ur Leukocyte Esterase Urine WBC (Auto) Urine RBC (Auto) Urine Bacteria Hyaline Casts Urine Glucose Blood Type Antibody Screen Crossmatch 11/13/17 11/13/17 11/13/17 15:55 17:44 18:31 WBC 13.5 H RBC 2.11 L Hgb 6.5 L Hct 19 L MCV 90 MCH 31 MCHC 34 RDW 16 H Plt Count 136 L MPV 8.6 Neut % (Auto) 86.0 H Lymph % (Auto) 8.0 L [place] % (Auto) 5.6 Eos % (Auto) 0 Baso % (Auto) 0.4 Absolute Neuts (auto) 11.7 H Absolute Lymphs (auto) 1.1 Absolute Monos (auto) 0.8 Absolute Eos (auto) 0 Absolute Basos (auto) 0.1 Absolute Nucleated RBC 0 Nucleated RBC % 0.2 INR (Anticoag Therapy) 1.07 H APTT 24.9 L Sodium Potassium Chloride Carbon Dioxide Anion Gap BUN Creatinine Est GFR ( Amer) Est GFR (Non-Af Amer) BUN/Creatinine Ratio Glucose POC Glucose (mg/dL) Lactic Acid Calcium Magnesium Total Bilirubin AST ALT Alkaline Phosphatase Total Creatine Kinase Total Protein Albumin Globulin Albumin/Globulin Ratio Urine Color Yellow Urine Appearance Clear Urine pH 5.0 Ur Specific [place] 1.015 Urine Protein Negative Urine Ketones Negative Urine Blood Negative Urine Nitrate Positive A Urine Bilirubin Negative Urine Urobilinogen Negative Ur Leukocyte Esterase Trace A Urine WBC (Auto) Trace(0-5/hpf) Urine RBC (Auto) Trace(0-2/hpf) Urine Bacteria Absent Hyaline Casts Present A Urine Glucose 1+(50 mg/dl) A Blood Type Antibody Screen Crossmatch 11/13/17 11/13/17 11/13/17 18:40 22:30 23:49 WBC 14.4 H RBC 2.73 L Hgb 8.5 L Hct 25 L MCV 90 MCH 31 MCHC 35 RDW 15 Plt Count 129 L MPV 8.0 Neut % (Auto) 84.8 H Lymph % (Auto) 8.4 L [place] % (Auto) 6.5 Eos % (Auto) 0 Baso % (Auto) 0.3 Absolute Neuts (auto) 12.2 H Absolute Lymphs (auto) 1.2 Absolute Monos (auto) 0.9 H Absolute Eos (auto) 0 Absolute Basos (auto) 0 Absolute Nucleated RBC 0 Nucleated RBC % 0.1 INR (Anticoag Therapy) APTT Sodium Potassium Chloride Carbon Dioxide Anion Gap BUN Creatinine Est GFR ( Amer) Est GFR (Non-Af Amer) BUN/Creatinine Ratio Glucose POC Glucose (mg/dL) 322 H 256 H Lactic Acid Calcium Magnesium Total Bilirubin AST ALT Alkaline Phosphatase Total Creatine Kinase Total Protein Albumin Globulin Albumin/Globulin Ratio Urine Color Urine Appearance Urine pH Ur Specific [place] Urine Protein Urine Ketones Urine Blood Urine Nitrate Urine Bilirubin Urine Urobilinogen Ur Leukocyte Esterase Urine WBC (Auto) Urine RBC (Auto) Urine Bacteria Hyaline Casts Urine Glucose Blood Type Antibody Screen Crossmatch 11/14/17 11/14/17 11/14/17 04:00 04:00 06:25 WBC 16.0 H RBC 2.62 L Hgb 8.0 L Hct 24 L MCV 90 MCH 31 MCHC 34 RDW 15 Plt Count 134 L MPV 8.2 Neut % (Auto) 82.6 Lymph % (Auto) 9.8 L [place] % (Auto) 6.5 Eos % (Auto) 0.1 Baso % (Auto) 1.0 Absolute Neuts (auto) 13.2 H Absolute Lymphs (auto) 1.6 Absolute Monos (auto) 1.0 H Absolute Eos (auto) 0 Absolute Basos (auto) 0.2 Absolute Nucleated RBC 0 Nucleated RBC % 0.1 INR (Anticoag Therapy) APTT Sodium 140 Potassium 4.7 Chloride 111 Carbon Dioxide 22 Anion Gap 7 BUN 70 H Creatinine 2.89 H Est GFR ( Amer) 26.1 Est GFR (Non-Af Amer) 21.6 BUN/Creatinine Ratio 24.2 H Glucose 211 H POC Glucose (mg/dL) 218 H Lactic Acid Calcium 7.6 L Magnesium 2.0 Total Bilirubin AST ALT Alkaline Phosphatase Total Creatine Kinase Total Protein Albumin Globulin Albumin/Globulin Ratio Urine Color Urine Appearance Urine pH Ur Specific [place] Urine Protein Urine Ketones Urine Blood Urine Nitrate Urine Bilirubin Urine Urobilinogen Ur Leukocyte Esterase Urine WBC (Auto) Urine RBC (Auto) Urine Bacteria Hyaline Casts Urine Glucose Blood Type Antibody Screen Crossmatch Studies: CXR 11/12/17 Impression: Stigmata of obstructive lung disease. No acute pulmonary or cardiac process evident. Impression: 71M with htn, hld, dm, bph, ckd, cad presents with UGI bleed. Plan: Neuro - pain control CV - htn, hld, cad - hold home asa in setting of bleed - hold betablocker until bp stable Pulm - oxygenating ok ID - no evidence of infection GI - UGI bleed - 2/2 duodenal ulcer - s/p clip - npo - c/w ppi gtt Renal - ckd - monitor i/o - monitor lytes Heme - symptomatic anemia - 2/2 gi bleed - serial cbc - transfuse prn Endo - dm - check fs, niss, lantus Lines - R Fem TLC PPx - gi/dvt Full Code Critical Care Time: 55 mins
[2017-11-14] MEDS: Lidocaine PATCH 5%* 1 PATCH TRANSDERM SCH (09:05)
[2017-11-14 09:55] LABS: Hematocrit 25 % (42-52); Hemoglobin 8.7 g/dl (14.0-18.0); Mean Corpuscular HGB Conc 35 g/dl (31-36); Mean Corpuscular Hemoglobin 31 pg (27-31); Mean Corpuscular Volume 89 fL (80-94); Mean Platelet Volume 8.1 um3 (7.4-10.4); Platelet Count 127 10^3/ul (150-450); Red Blood Count 2.81 10^6/ul (4.00-5.40); Red Cell Distribution Width 15 % (10.5-15); White Blood Count 16.5 10^3/ul (3.5-10.8)
[2017-11-14] MEDS ORDERED: Furosemide IV* 10 MG/ML VIAL (40 MG) IV ONE (10:36)
[2017-11-14 11:10] LABS: ABS Basophils 0.1 10^3/ul (0-0.2); ABS Eosinophils 0 10^3/ul (0-0.6); ABS Lymphocytes 1.3 10^3/ul (1.0-4.8); ABS Neutrophils 14.2 10^3/ul (1.5-7.7); ABS Nucleated RBC 0 10^3/ul; Eosinophil % 0.1 % (0-6); Lymphocyte % 7.6 % (25-47); Nucleated Red Blood Cells % 0
[2017-11-14 14:12] LABS: ABS Basophils 0.1 10^3/ul (0-0.2); ABS Eosinophils 0 10^3/ul (0-0.6); ABS Lymphocytes 1.2 10^3/ul (1.0-4.8); ABS Monocytes 0.9 10^3/ul (0-0.8); ABS Neutrophils 12.9 10^3/ul (1.5-7.7); ABS Nucleated RBC 0 10^3/ul; Eosinophil % 0.1 % (0-6); Hematocrit 25 % (42-52); Hemoglobin 8.5 g/dl (14.0-18.0); Lymphocyte % 8.2 % (25-47); Mean Corpuscular HGB Conc 34 g/dl (31-36); Mean Corpuscular Hemoglobin 31 pg (27-31); Mean Corpuscular Volume 90 fL (80-94); Mean Platelet Volume 7.8 um3 (7.4-10.4); Nucleated Red Blood Cells % 0; Platelet Count 128 10^3/ul (150-450); Red Blood Count 2.76 10^6/ul (4.00-5.40); Red Cell Distribution Width 15 % (10.5-15); White Blood Count 15.2 10^3/ul (3.5-10.8)
[2017-11-14] MEDS ORDERED: Acetaminophen TAB* 325 MG PO PRN (20:28)
[2017-11-14] MEDS ORDERED: Melatonin 3 MG TAB PO ONE (21:00)
[2017-11-14] MEDS: Insulin GLARGINE(*) 1 UNITS UNIT SUBCUT SCH (21:25)
[2017-11-14] MEDS: Lidocaine Patch REMOVE* 1 NOTE MISC SCH (21:29)
[2017-11-15] MEDS: Insulin LISPRO* 1 UNITS UNIT SUBCUT SCH ×5 (00:16→22:31)
[2017-11-15] MEDS: Morphine VIAL* 4 MG/ML VIAL (1 ml vial) IV PRN ×3 (01:20→21:27)
[2017-11-15] MEDS: Pantoprazole IV* 80 MG in NS 0.9% 250 ML* 250 ML IVPB SCH ×2 (05:32→22:22)
[2017-11-15 06:33] LABS: ABS Basophils 0 10^3/ul (0-0.2); ABS Eosinophils 0.1 10^3/ul (0-0.6); ABS Lymphocytes 1.2 10^3/ul (1.0-4.8); ABS Monocytes 0.8 10^3/ul (0-0.8); ABS Neutrophils 8.6 10^3/ul (1.5-7.7); ABS Nucleated RBC 0 10^3/ul; Eosinophil % 0.8 % (0-6); Hematocrit 20 % (42-52); Hemoglobin 6.9 g/dl (14.0-18.0); Lymphocyte % 11.1 % (25-47); Mean Corpuscular HGB Conc 35 g/dl (31-36); Mean Corpuscular Hemoglobin 32 pg (27-31); Mean Corpuscular Volume 90 fL (80-94); Mean Platelet Volume 7.7 um3 (7.4-10.4); Nucleated Red Blood Cells % 0.1; Platelet Count 110 10^3/ul (150-450); Red Blood Count 2.17 10^6/ul (4.00-5.40); Red Cell Distribution Width 16 % (10.5-15); White Blood Count 10.7 10^3/ul (3.5-10.8)
[2017-11-15 07:43] LABS: EGFR Non-African American 24.5 (>60)
[2017-11-15] MEDS: Lidocaine PATCH 5%* 1 PATCH TRANSDERM SCH (09:34)
--- NOTE | 2017-11-15 13:56 | RAD ---
Indication: Upper GI bleed. Comparison: No relevant prior exams available on the [facility] PACS for comparison. Technique: 26.030 mCi of Tc-99m were labeled to the patient?s own blood cells. Images of the abdomen were obtained in the anterior projection from 0 to 60 minutes following injection. Report: No suspicious abnormal foci of excretion of radiopharmaceutical into the bowel are demonstrated. Mild uptake at the gastric mucosa likely reflects unbound free technetium. There is no distal propagation of activity in the upper GI tract to favor a true gastric bleeding site. IMPRESSION: #. No gastrointestinal tract bleeding site identified on initial 60 minute serial scintiphotos. #. Reimaging in setting of recurrent acute bleeding episode or at 24 hours in absence of an intervening acute bleeding episode suggested for further assessment.
--- NOTE | 2017-11-15 14:16 | PN ---
Subjective Date of Service: 11/15/17 Interval History: HOSPITALIST PROGRESS NOTE Patient seen and examined at bedside. Care reviewed and d/w Ulysses Stephen RN. He is upset today. "Take my stomach out if it's bleeding". He denies abdominal pain, no BM so far. Wants to advance his diet, denies N/V, feels hungry. Family History: Unchanged from Admission Social History: Unchanged from Admission Past Medical History: Unchanged from Admission Objective Active Medications: Acetaminophen (Tylenol Tab*) 975 mg PO Q6H PRN PRN Reason: PAIN Last Admin: 11/14/17 21:27 Dose: 975 mg Dextrose (D50w Syringe 50 Ml*) 12.5 gm IV PUSH .FOR FS < 60 - SS PRN PRN Reason: FS < 60 Pantoprazole Sodium 80 mg/ (Sodium Chloride) 250 mls @ 25 mls/hr IVPB Q10H [facility] Last Admin: 11/15/17 05:32 Dose: 25 mls/hr Insulin Glargine (Lantus(*)) 10 units SUBCUT Q24H [facility] Last Admin: 11/14/17 21:25 Dose: 10 units Insulin Human Lispro (Humalog*) 0 units SUBCUT ACHS [facility]; Protocol Lidocaine (Lidoderm 5% Patch*) 1 patch TRANSDERM DAILY [facility] Last Admin: 11/15/17 09:34 Dose: Not Given Morphine Sulfate (Morphine Vial*) 4 mg IV Q4H PRN PRN Reason: PAIN Last Admin: 11/15/17 13:24 Dose: 4 mg Pharmacy Profile Note (Lidocaine Patch Remove*) 1 note N/A 2100 [facility] Last Admin: 11/14/17 21:29 Dose: Not Given Vital Signs - 8 hr 11/15/17 13:24 Respiratory 18 Rate Oxygen Devices in Use Now: Nasal Cannula - 3 liters NC Appearance: Elderly obese gentleman sitting up in bed in NAD. Eyes: No Scleral Icterus Ears/Nose/Mouth/Throat: Mucous Membranes Moist Neck: Trachea Midline Respiratory: Symmetrical Chest Expansion and Respiratory Effort, Clear to Auscultation Cardiovascular: RRR - Normal S1 and S2 Abdominal: NL Sounds; No Tenderness; No Distention - obese Neurological: Alert and Oriented x 3, NL Muscle Strength and Tone Result Diagrams: 11/15/17 06:11 11/15/17 06:11 Assess/Plan/Problems-Billing Assessment: Mr Reynoso is a 71yo M with PMH of CAD, type 2 DM, HTN, HLD, chronic back pain, CKD stage 2-3, recent admission from 11/03/17-11/08/17 acute blood loss anemia secondary to an UGIB from a duodenal ulcer and acute renal failure associated with NSAID use. The patient returned to the ER on 11/12/17 with c/o SOB and lightheadedness and was found to have a Hb of 5.3 and was readmitted for probable UGIB with possible hemorrhagic shock. - Patient Problems (1) Hemorrhagic shock Comment: - Secondary to GI bleed - resolved. (2) Acute on chronic blood loss anemia Comment: - Has received 8 PRBCs so far and Hb down to 6.8 today. - No signs of overt GI bleed at this time and VS are stable. - D/w GI - recommended bleeding scan. No indication for repeat EGD or colonoscopy at this time. - Transufse 2 PRBCs today and monitor H/H. - Will request PICC line placement so we can remove his femoral TLC. (3) UGI bleed Comment: - EGD showed duodenal ulcer at C-loop with visible blood vessel ( clipped), but with distal blood suggesting enteric source. Push enteroscopy to jejunum did not reveal another source of bleeding. - Follow bleeding scan. - GI follow up. - Continue Protonix drip. (4) Acute renal failure Comment: - Creatinine stable around 2.5, but BUN trending up from 54 to 70, suggestive of further GI bleed. - Continue to monitor. (5) Type II diabetes mellitus Comment: - Monitor FS and continue Lispro SS. (6) BPH (benign prostatic hyperplasia) Comment: - Patient has h/o urinary retention and last hospitalization refused to have a pérez placed due to pain. He understood at that time his renal function may deteriorate due to the retention. Continue to monitor for now. (7) Back pain Comment: - Chronic. Conitnue Lidocaine patch and IV Morphine. (8) DVT prophylaxis Comment: - SCDs. (9) Full code status Status and Disposition: Inpatient.
[2017-11-15 19:53] LABS: ABS Basophils 0 10^3/ul (0-0.2); ABS Eosinophils 0.1 10^3/ul (0-0.6); ABS Lymphocytes 0.9 10^3/ul (1.0-4.8); ABS Monocytes 0.6 10^3/ul (0-0.8); ABS Neutrophils 7.8 10^3/ul (1.5-7.7); ABS Nucleated RBC 0 10^3/ul; Eosinophil % 1.3 % (0-6); Hematocrit 24 % (42-52); Hemoglobin 8.4 g/dl (14.0-18.0); Lymphocyte % 9.2 % (25-47); Mean Corpuscular HGB Conc 35 g/dl (31-36); Mean Corpuscular Hemoglobin 31 pg (27-31); Mean Corpuscular Volume 90 fL (80-94); Mean Platelet Volume 7.7 um3 (7.4-10.4); Nucleated Red Blood Cells % 0.1; Platelet Count 112 10^3/ul (150-450); Red Blood Count 2.71 10^6/ul (4.00-5.40); Red Cell Distribution Width 15 % (10.5-15); White Blood Count 9.5 10^3/ul (3.5-10.8)
--- NOTE | 2017-11-15 20:21 | PN ---
Hospitalist Progress Note Date of Service: 11/15/17 HOSPITALIST ADDENDUM Notified by RN patient was very upset about his condition and care. I was able to come up see him around 6:30pm and he was sleeping. Since he had just calmed down, I decided not to wake him up. His bleeding scan was negative and he will have his f/u study tomorrow morning. H/H responded appropriately to 2 PRBCs. No signs of active bleeding, but if he shows any (hematemesis, melena) he needs a STAT NM bleeding scan - RN was informed. D/w GI - plan to have bleeding scan tomorrow +/- another EGD. If bleeding persists, patient would be a poor surgical candidate due to all his comorbidities, but may be a candidate for embolization. Will discuss further with GI and may pursue transfer depending on clinical course.
[2017-11-15] MEDS: Lidocaine Patch REMOVE* 1 NOTE MISC SCH (22:28)
[2017-11-15] MEDS: LORazepam TAB(*) 0.5 MG PO PRN (22:30)
[2017-11-15] MEDS: Insulin GLARGINE(*) 1 UNITS UNIT SUBCUT SCH (22:32)
[2017-11-15] MEDS: NS 0.9% 1000 ML* 1,000 ML IV SCH (23:59)
[2017-11-16] MEDS: Morphine VIAL* 4 MG/ML VIAL (1 ml vial) IV PRN ×4 (01:32→18:23)
[2017-11-16 06:12] LABS: ABS Basophils 0 10^3/ul (0-0.2); ABS Eosinophils 0.1 10^3/ul (0-0.6); ABS Lymphocytes 0.8 10^3/ul (1.0-4.8); ABS Monocytes 0.4 10^3/ul (0-0.8); ABS Neutrophils 4.8 10^3/ul (1.5-7.7); ABS Nucleated RBC 0 10^3/ul; Eosinophil % 1.5 % (0-6); Hematocrit 21 % (42-52); Hemoglobin 7.3 g/dl (14.0-18.0); Lymphocyte % 13.4 % (25-47); Mean Corpuscular HGB Conc 35 g/dl (31-36); Mean Corpuscular Hemoglobin 31 pg (27-31); Mean Corpuscular Volume 89 fL (80-94); Nucleated Red Blood Cells % 0.1; Platelet Count 101 10^3/ul (150-450); Red Blood Count 2.35 10^6/ul (4.00-5.40); Red Cell Distribution Width 16 % (10.5-15); White Blood Count 6.1 10^3/ul (3.5-10.8)
[2017-11-16 06:29] LABS: EGFR Non-African American 29.7 (>60)
[2017-11-16] MEDS: Insulin LISPRO* 1 UNITS UNIT SUBCUT SCH ×2 (10:02→18:34)
[2017-11-16] MEDS: Pantoprazole IV* 80 MG in NS 0.9% 250 ML* 250 ML IVPB SCH ×3 (10:03→20:09)
[2017-11-16] MEDS: Lidocaine PATCH 5%* 1 PATCH TRANSDERM SCH (10:03)
[2017-11-16] MEDS ORDERED: Magnesium Sulfate 2 GM IV* 2 GM/50 ML BAG IVPB ONE (11:55)
[2017-11-16] MEDS ORDERED: Calcium Gluconate INJ* 1 GM in NS 0.9% 50 ML* 50 ML IVPB ONE (11:55)
--- NOTE | 2017-11-16 12:01 | PN ---
Progress Note - Progress Note Date of Service: 11/16/17 Note: GASTROENTEROLOGY PROGRESS NOTE Reviewed chart. Discussed with primary team. Met with patient. Episode of melena overnight. Hct down from 24 to 21 this AM. No further overt bleeding this AM. Patient feeling quite frustrated. Explained to patient and daughter that the ulcer with visible vessel seen on prior endoscopy has 40-50% risk of recurrent bleeding making it probable that this is bleeding again. - Continue with supportive care (received 12th unit of pRBC today, per primary team) - Continue IV PPI BID or gtt - NPO for procedure. Will plan for repeat upper endoscopy +/- push enteroscopy today to reassess for bleeding source. Claudia Clement MD
--- NOTE | 2017-11-16 13:51 | PN ---
Subjective Date of Service: 11/16/17 Interval History: HOSPITALIST PROGRESS NOTE Patient seen and examined at bedside. Care reviewed and d/w Ulysses Stephen RN. He had a large melanotic BM overnight, not associated with abdominal pain or cramp. "It just poured out". STAT NM bleeding scan was not done due to NM issues. He's very upset he continues to be NPO, continues to bleed, "everyone is lying to me" and "no one is telling me what's going on". Another stressor is his ' s illness (lung CA, now with pneumonia). Family History: Unchanged from Admission Social History: Unchanged from Admission Past Medical History: Unchanged from Admission Objective Active Medications: Acetaminophen (Tylenol Tab*) 975 mg PO Q6H PRN PRN Reason: PAIN Last Admin: 11/14/17 21:27 Dose: 975 mg Dextrose (D50w Syringe 50 Ml*) 12.5 gm IV PUSH .FOR FS < 60 - SS PRN PRN Reason: FS < 60 Heparin Sodium (Porcine) (Heparin Flush Picc/Ml/Cvc(*)) 1 - 3 ml FLUSH 0600, 1800 [facility]; Protocol Pantoprazole Sodium 80 mg/ (Sodium Chloride) 250 mls @ 25 mls/hr IVPB Q10H [facility] Last Admin: 11/16/17 10:03 Dose: 25 mls/hr Sodium Chloride (Ns 0.9% 1000 Ml*) 1,000 mls @ 75 mls/hr IV PER RATE [facility] Last Admin: 11/15/17 23:59 Dose: 75 mls/hr Insulin Glargine (Lantus(*)) 10 units SUBCUT Q24H [facility] Last Admin: 11/15/17 22:32 Dose: 10 units Insulin Human Lispro (Humalog*) 0 units SUBCUT ACHS [facility]; Protocol Last Admin: 11/16/17 10:02 Dose: Not Given Lidocaine (Lidoderm 5% Patch*) 1 patch TRANSDERM DAILY [facility] Last Admin: 11/16/17 10:03 Dose: 1 patch Lorazepam (Ativan Tab(*)) 0.5 mg PO Q6H PRN PRN Reason: ANXIETY Last Admin: 11/15/17 22:30 Dose: 0.5 mg Morphine Sulfate (Morphine Vial*) 4 mg IV Q4H PRN PRN Reason: PAIN Last Admin: 11/16/17 11:52 Dose: 4 mg Pharmacy Profile Note (Lidocaine Patch Remove*) 1 note N/A 2100 [facility] Last Admin: 11/15/17 22:28 Dose: Not Given Vital Signs - 8 hr 11/16/17 11/16/17 11/16/17 06:04 07:58 10:02 Temperature 98.4 F Pulse Rate 81 Respiratory 16 19 18 Rate Blood Pressure 122/59 (mmHg) O2 Sat by Pulse 95 Oximetry 11/16/17 11:52 Temperature Pulse Rate Respiratory 18 Rate Blood Pressure (mmHg) O2 Sat by Pulse Oximetry Oxygen Devices in Use Now: None Appearance: Elderly gentleman sitting up in a chair in NAD. Eyes: No Scleral Icterus Ears/Nose/Mouth/Throat: Mucous Membranes Moist Neck: Trachea Midline Neurological: Alert and Oriented x 3, NL Muscle Strength and Tone Result Diagrams: 11/16/17 05:30 11/16/17 05:30 Assess/Plan/Problems-Billing Assessment: Mr Reynoso is a 71yo M with PMH of CAD, type 2 DM, HTN, HLD, chronic back pain, CKD stage 2-3, recent admission from 11/03/17-11/08/17 acute blood loss anemia secondary to an UGIB from a duodenal ulcer and acute renal failure associated with NSAID use. The patient returned to the ER on 11/12/17 with c/o SOB and lightheadedness and was found to have a Hb of 5.3 and was readmitted for probable UGIB with possible hemorrhagic shock. - Patient Problems (1) Hemorrhagic shock Comment: - Secondary to GI bleed - resolved. (2) Acute on chronic blood loss anemia Comment: - Has received 10 PRBCs so far and Hb down to 7.3 again today. - VS are stable but had large melanotic stool. - GI input appreciated - duodenal ulcer with visible blood vessel has 40-50% risk of recurrent bleeding - plan for repeat EGD +/- push enteroscopy today. - Transufse 2 PRBCs today and monitor H/H. - PICC line placed - d/c femoral TLC. - If no clear source of bleeding on repeat EGD, will pursue transfer to Higher level of care. (3) UGI bleed Comment: - EGD showed duodenal ulcer at C-loop with visible blood vessel ( clipped), but with distal blood suggesting enteric source. Push enteroscopy to jejunum did not reveal another source of bleeding. - Bleeding scan 11/15/17 was negative. - GI follow up appreciated. - Continue Protonix drip. (4) Acute renal failure Comment: - Creatinine stable around 2.5, but BUN trending up from 54 to 70, suggestive of further GI bleed. - Continue to monitor. (5) Type II diabetes mellitus Comment: - Monitor FS and continue Lispro SS. (6) BPH (benign prostatic hyperplasia) Comment: - Patient has h/o urinary retention and last hospitalization refused to have a pérez placed due to pain. He understood at that time his renal function may deteriorate due to the retention. Continue to monitor for now. (7) Back pain Comment: - Chronic. Conitnue Lidocaine patch and IV Morphine. (8) Electrolyte abnormality Comment: - Will replete potassium, magnesium, and calcium. (9) DVT prophylaxis Comment: - SCDs. (10) Full code status Status and Disposition: Inpatient. Patient and daughter updated at bedside.
[2017-11-16] MEDS ORDERED: fentaNYL* 50 MCG/ML 2 ML VIAL (100 MCG VIAL) ONE (15:18)
[2017-11-16] MEDS ORDERED: Midazolam* 1 MG/ML 10 ML VIAL (10 MG) ONE (15:18)
[2017-11-16] MEDS ORDERED: PEG 3000 GI LAVAGE* 1 GALLON PO SCH (18:00)
[2017-11-16] MEDS: KCL 10 MEQ/50 ML IVPREMIX* 10 MEQ/50 ML BAG IV SCH ×3 (18:22→22:42)
--- NOTE | 2017-11-16 19:05 | DS ---
CC: Primary Care Provider, Dr. Villarreal; Accepting Physician, Dr. Asad Eller; Consulting Manufacturing Team Member, Dr. Ezio Pelayo at [facility] * DISCHARGE/TRANSFER SUMMARY DATE OF ADMISSION: 11/12/17 DATE OF DISCHARGE/TRANSFER: 11/16/17 HOSPITAL COURSE: Mr. Reynoso is a 71-year-old male with a past medical history of CAD, type 2 diabetes, hypertension, hyperlipidemia, chronic back pain, CKD stage 2- 3, who was initially admitted to [facility] on 11/03/17. At that time he went to see his primary care provider due to weakness and fatigue, and was noted to have significant drop on his hemoglobin from a baseline around 14 down to 9.2. He was also found to be in acute renal failure with a creatinine of 3.6 from a baseline of 1.5. The patient has a history of chronic back pain and was taking more than 1200 mg of ibuprofen every day. He was admitted under the impression of anemia secondary to a GI bleed and acute kidney injury, both likely related to his NSAID use. The patient had an upper endoscopy done that showed duodenal ulcers and 1 larger one that seemed to have stigmata of bleeding. The patient received 2 PRBCs during that admission and he was discharged home on 11/08/17 with hemoglobin of 7.7. He was advised to avoid NSAIDs. He was discharged on a PPI to followup with Gastroenterology as outpatient. The patient returned to our emergency room on 11/12/17 with complaints of shortness of breath and lightheadedness. He was found to have a hemoglobin of 5.3 and at that time he was unstable hemodynamically. He was initially admitted to the Intensive Care Unit, had an upper endoscopy performed on 11/13/17. He had an EGD with push enteroscopy into the proximal jejunum. He had 2 clips placed to a duodenal ulcer. No active bleeding was seen at that time, but there was fresh blood around the area. The patient did have any gross bleeding, but his hemoglobin would not correct appropriately with transfusions, and his hemoglobin actually started to drop again. So far, during this admission, the patient had received 12 units and the last hemoglobin prior to transfer is 7.3. He had a bleeding scan done on 11/15/17 and no gastrointestinal tract bleeding site was identified on the initial 60 minutes. The patient did have an episode of melanotic stools on 11/15/17 overnight, but due to logistic reasons bleeding scan was not performed at that time. On the morning of 11/16/17 the patient had another episode of smaller amount of melena. He was seen in followup by GI and taken once again to endoscopy. No active bleeding was seen and the duodenal ulcer clips were in place. GI had recommended preparation for colonoscopy and then transfer for inpatient capsule endoscopy and enteroscopy, procedures that are not performed at [facility]. I discussed multiple options with the patient and his family, and they elected transfer to a higher level of care to have those procedures performed. The patient's case was discussed with Dr. Eller who also spoke with his land acquisition analyst, Dr. Mckinley and [facility] has the capability for performing those procedures so the patient will be transferred tonight. At the time of this dictation the patient is medically stable after receiving his 2 PRBCs with stable vital signs. His last episode of melena was this morning. PHYSICAL EXAMINATION: Vital Signs: Temperature 98.3. Heart rate 63. Respiratory rate 18. O2 saturation 95% on room air. Blood pressure is 116/60. General: Patient is an elderly obese gentleman sitting up in bed in no acute distress. HEENT: Pupils are equal. Moist mucous membranes. CVS: Normal S1, S2. Regular rate and rhythm. Chest: Breath sounds present bilaterally with minimal bibasilar crackles. Abdomen: Obese. Bowel sounds are present. Extremities: There is moderate to severe bilateral lower and upper extremity edema. Neuro: He is alert and oriented x3. Able to move all 4 extremities. DIET: Clear liquid diet. ACTIVITY: As tolerated. DISPOSITION: Transfer to a higher level of care ([facility]). MEDICATIONS AT THE TIME OF TRANSFER: 1. Tylenol 325 mg p.o. every 6 hours p.r.n. pain. 2. Lantus 10 units subcutaneously daily. 3. Lispro sliding scale. 4. Lidoderm patch 5% topical to lower back daily. 5. Lorazepam 0.5 mg p.o. every 6 hours p.r.n. anxiety. 6. Morphine 4 mg IV every 4 hours p.r.n. severe pain. 7. Normal saline 75 mL an hour. 8. Protonix drip at 25 mL an hour. PROCEDURES: 1. On 11/13/17 the patient had a femoral line placed by Dr. Marroquin in the Intensive Care Unit. That line was removed today 11/16/17. 2. PICC line placement was done on 11/16/17. Please keep in mind that this is a summarized version of this patient's complex and prolonged hospital stay. If you need more information, please feel free to call me at or please obtain the full medical records. Approximately 55 minutes were spent to complete this discharge. [id number]/[facility] #: [id number] RAYRAY
[2017-11-16 19:45] VITALS: BP 131/47
[2017-11-16] MEDS: LORazepam TAB(*) 0.5 MG PO PRN (20:08)
[2017-11-16] MEDS: NS 0.9% 1000 ML* 1,000 ML IV SCH (20:32)
--- NOTE | 2017-11-17 03:42 | PRO ---
CC: Jimbo Garibay MD * DATE OF PROCEDURE: 11/16/17 - ROOM #[id number] PROCEDURE: EGD. PRIMARY CARE DOCTOR: Jimbo Garibay MD INDICATIONS: EGD on 11/13/17 with duodenal ulcer with visible vessel, status post clip placement. Now with continued Hematocrit drop and hematochezia overnight. MEDICATIONS GIVEN: Midazolam 7 mg IV, fentanyl 75 mcg IV. DESCRIPTION OF PROCEDURE: Full disclosure of risks was reviewed with the patient as detailed on the consent form. The patient was placed in the left lateral decubitus position and monitored with continuous pulse oximetry, interval blood pressure monitoring, and direct observation. A bite-block was placed between the teeth. An Olympus gastroscope was then inserted into the patient's mouth and advanced down the esophagus, into the stomach, and into the distal duodenum. FINDINGS: As described below: E - Tortuous distal esophagus. Otherwise normal. G - The scope was then slowly advanced into the stomach. Stomach was examined in forward and retroflexed views. There was yellow clear fluid in the stomach. There was no red or old blood. No erosions or ulcers. D - The scope was then advanced into the duodenum. There was a clean based duodenal ulcer in second portion with a clip in the center of the ulcer. There was no visible vessel or high risk stigmata. A second clip was seen just distal to this area on a duodenal fold. There was bilious yellow fluid seen past the clip and ulcer. There was no red or old blood seen. The scope was then slowly withdrawn from the patient. He tolerated the procedure well and returned to the recovery room in stable condition. IMPRESSION: - Previously noted duodenal ulcer was seen in second portion of the duodenum with previously placed clip in the center. No visible vessel or high risk stigmata. No evidence of recent or old blood. This ulcer does not appear to be the source of ongoing blood loss anemia. RECOMMENDATIONS: 1. Recommend continuing to monitor CBC, transfuse per primary team, and supportive care. 2. Recommend prep for colonoscopy tomorrow with plan to evaluate colon for potential source and evaluate terminal ileum for any evidence of blood to suggest small bowel source. Discussed colonoscopy prep with Dr. Dickson and primary team. [id number]/[facility] #: [id number] [facility] HOSPITALGermania
[2017-11-17] MEDS ORDERED: PEG 3000 GI LAVAGE* 1 GALLON PO ONE (07:00)
== END 2017-11-16 20:30 | disposition short-term general hospital (02) | DRG 377 ==
LOC: ED 21:20 → MED 23:10 → ICU 11-13 07:56 → MEDTELE 11-14 17:35
PROVIDERS: ADMIT Internal Medicine; ATTEND Internal Medicine
PROC: 06HM33Z Insertion of Infusion Device into Right Femoral Vein, Percutaneous Approach (ICD-10-PCS; principal; 2017-11-13)
PROC: 0W3P8ZZ Control Bleeding in Gastrointestinal Tract, Via Natural or Artificial Opening Endoscopic (ICD-10-PCS; 2017-11-13)
PROC: 30233N1 Transfusion of Nonautologous Red Blood Cells into Peripheral Vein, Percutaneous Approach (ICD-10-PCS; 2017-11-15)
PROC: 0DJ08ZZ Inspection of Upper Intestinal Tract, Via Natural or Artificial Opening Endoscopic (ICD-10-PCS; 2017-11-16)
DX: K26.4 Chronic or unspecified duodenal ulcer with hemorrhage (principal); R57.8 Other shock; D62 Acute posthemorrhagic anemia; N17.9 Acute kidney failure, unspecified; I25.10 Atherosclerotic heart disease of native coronary artery without angina pectoris; E78.5 Hyperlipidemia, unspecified; G89.29 Other chronic pain; K26.9 Duodenal ulcer, unspecified as acute or chronic, without hemorrhage or perforation; N40.1 Benign prostatic hyperplasia with lower urinary tract symptoms; R33.8 Other retention of urine; I45.10 Unspecified right bundle-branch block; E66.01 Morbid (severe) obesity due to excess calories; E11.22 Type 2 diabetes mellitus with diabetic chronic kidney disease; I12.9 Hypertensive chronic kidney disease with stage 1 through stage 4 chronic kidney disease, or unspecified chronic kidney disease; E11.21 Type 2 diabetes mellitus with diabetic nephropathy; M54.5 Low back pain; D63.1 Anemia in chronic kidney disease; R26.9 Unspecified abnormalities of gait and mobility; K59.00 Constipation, unspecified; N18.3 Chronic kidney disease, stage 3 (moderate); T39.395A Adverse effect of other nonsteroidal anti-inflammatory drugs [NSAID], initial encounter; Y92.9 Unspecified place or not applicable; Z82.49 Family history of ischemic heart disease and other diseases of the circulatory system; Z83.3 Family history of diabetes mellitus; Z82.3 Family history of stroke; Z80.0 Family history of malignant neoplasm of digestive organs; Z95.5 Presence of coronary angioplasty implant and graft; Z87.891 Personal history of nicotine dependence; Z91.19 Patient's noncompliance with other medical treatment and regimen; Z68.35 Body mass index [BMI] 35.0-35.9, adult; Z79.4 Long term (current) use of insulin
CPT/HCPCS: 36415; 71046; 78278; 80048; 80053; 81003; 81015; 82330; 82550; 83036; 83605; 83735; 84484; 85025; 85610; 85730; 86850; 86900; 86901; 86922; 87077; 87086; 87186; 87641; 93005; 99156; 99157; 99283; A9270-GY; A9512; A9538; C1751; J0610; J1940; J2250; J2270; J3010; J3475; J3480; P9040

== ENCOUNTER 2020-05-27 07:38 | Inpatient (IN) ==
[2020-05-27] MEDS ORDERED: NS 0.9% 1000 ml BAG 1,000 ML IV ONE (08:21)
[2020-05-27] MEDS ORDERED: Morphine 4 MG/ML VIAL (1 ml) IV ONE (08:21)
[2020-05-27] MEDS ORDERED: Ondansetron 4 mg VIAL 2 MG/ML 2 ml VIAL IV ONE (08:21)
[2020-05-27 09:07] LABS: ABS Lymphocytes 0.5 10^3/ul (1.0-4.8); ABS Monocytes 0.4 10^3/ul (0-0.8); ABS Neutrophils 6.1 10^3/ul (1.5-7.7); Eosinophil % 0.1 %; Hematocrit 19 % (42-52); Hemoglobin 6.4 g/dL (14.0-18.0); Lymphocyte % 7.6 %; Mean Corpuscular HGB Conc 34 g/dL (31-36); Mean Corpuscular Hemoglobin 34 pg (27-31); Mean Corpuscular Volume 101 fL (80-94); Mean Platelet Volume 7.4 fL (7.4-10.4); Nucleated Red Blood Cells % 0.1; Platelet Count 262 10^3/uL (150-450); Red Blood Count 1.86 10^6 /uL (4.18-5.48); Red Cell Distribution Width 15 % (10-15); White Blood Count 7.1 10^3/uL (3.5-10.8)
[2020-05-27 09:11] LABS: Activated Partial Thrombo Time 27.1 seconds (26.0-38.0); INR 1.15 (0.82-1.09)
[2020-05-27 09:21] LABS: ALT 9 U/L (7-52); AST 12 U/L (13-39); Albumin 3.6 g/dL (3.2-5.2); Albumin/Globulin Ratio 1.6 (1-3); Alkaline Phosphatase 64 U/L (34-104); Anion Gap 8 mmol/L (2-11); BUN/Creatinine Ratio 27.4 (8-20); Blood Urea Nitrogen 54 mg/dL (6-24); CO2 Carbon Dioxide 17 mmol/L (22-32); Calcium 8.2 mg/dL (8.6-10.3); Chloride 103 mmol/L (101-111); EGFR African American 40.3 (>60); EGFR Non-African American 33.3 (>60); Globulin 2.2 g/dL (2-4); Glucose 201 mg/dL (70-100); Lipase < 10 U/L (11.0-82.0); Potassium 4.5 mmol/L (3.5-5.0); Sodium 128 mmol/L (135-145); Total Protein 5.8 g/dL (6.4-8.9)
[2020-05-27 09:22] LABS: Troponin I 0.01 ng/mL (<0.03)
[2020-05-27 09:23] LABS: Polychromasia 2+
[2020-05-27] MEDS ORDERED: Iodixanol (CONTRAST) 320 MG/ML 100 ML SDV IV ONE (09:31)
[2020-05-27] MEDS ORDERED: Pantoprazole VIAL 40 MG VIAL IV ONE (10:01)
[2020-05-27] MEDS ORDERED: Morphine 2 MG/ML SYRINGE IV PRN (11:43)
[2020-05-27] MEDS ORDERED: Dextrose 50% Syringe 50 ml 25 GM/50 ML SYRINGE IV PUSH PRN (11:48)
[2020-05-27 11:49] LABS: Hematocrit for Retic CNT 19 % (42-52); RBC Retic Count 1.86 10^6/uL (4.18-5.48)
[2020-05-27] MEDS: NS 0.9% 1000 ml BAG 1,000 ML IV SCH ×2 (11:51→18:38)
[2020-05-27 11:53] LABS: Corrected Retic Count 1.1 % (0.5-1.5); Immature Retic Fraction 0.44
[2020-05-27 12:17] LABS: Urine Appearance Clear; Urine Bilirubin Negative (Negative); Urine Blood Negative (Negative); Urine Color Yellow; Urine Glucose Negative (Negative); Urine Ketones Trace (Negative); Urine Nitrite Negative (Negative); Urine Protein Negative (Negative); Urine Specific Gravity 1.015 (1.002-1.030); Urine Urobilinogen Negative (Negative)
[2020-05-27 12:22] LABS: Urine Bacteria Absent (Absent); Urine Red Blood Cell Trace(0-2/hpf) (Absent); Urine White Blood Cell Trace(0-5/hpf) (Absent)
[2020-05-27 12:58] LABS: LDH 170 U/L (140-271)
[2020-05-27 13:07] LABS: C Reactive Protein 26.63 mg/L (<8.01)
[2020-05-27 13:23] LABS: Vitamin B12 223 pg/mL (180-914)
[2020-05-27 13:30] LABS: Ferritin 28.4 ng/mL (24-336)
[2020-05-27 13:47] LABS: Total Iron Binding Capacity 349 mcg/dL (250-450); Transferrin 249 mg/dL (203-362)
[2020-05-27 13:52] LABS: % Iron Saturation 6 % (15-55); Iron < 20 ug/dL (50-212); Unsaturated Iron Binding < 334 ug/dL
[2020-05-27] MEDS: Pantoprazole 80 mg in NS BAG 80 MG/250 ML BAG IV SCH (13:54)
[2020-05-27 18:02] LABS: Hematocrit 21 % (42-52); Hemoglobin 7.2 g/dL (14.0-18.0)
[2020-05-27 18:30] LABS: Calcium 8.1 mg/dL (8.6-10.3); EGFR African American 47.5 (>60); EGFR Non-African American 39.2 (>60); Potassium 4.1 mmol/L (3.5-5.0)
[2020-05-27] MEDS: Morphine 2 MG/ML SYRINGE IV PRN ×2 (18:32→20:50)
[2020-05-27 19:13] LABS: TSH Ultra Thyroid Stim Horm 1.55 mcIU/mL (0.34-5.60)
[2020-05-27 19:24] LABS: Folate 3.44 ng/mL (5.90-24.80)
[2020-05-28 00:32] LABS: Hematocrit 20 % (42-52); Hemoglobin 6.9 g/dL (14.0-18.0)
[2020-05-28] MEDS: Pantoprazole 80 mg in NS BAG 80 MG/250 ML BAG IV SCH ×2 (02:05→15:06)
[2020-05-28] MEDS: Morphine 2 MG/ML SYRINGE IV PRN ×5 (04:15→22:38)
[2020-05-28 05:34] LABS: ABS Eosinophils 0.1 10^3/ul (0-0.6); ABS Lymphocytes 0.8 10^3/ul (1.0-4.8); ABS Monocytes 0.4 10^3/ul (0-0.8); ABS Neutrophils 4.7 10^3/ul (1.5-7.7); Eosinophil % 0.9 %; Hematocrit 21 % (42-52); Hemoglobin 7.2 g/dL (14.0-18.0); Lymphocyte % 12.9 %; Mean Corpuscular HGB Conc 34 g/dL (31-36); Mean Corpuscular Hemoglobin 34 pg (27-31); Mean Corpuscular Volume 99 fL (80-94); Mean Platelet Volume 7.4 fL (7.4-10.4); Nucleated Red Blood Cells % 0.1; Platelet Count 237 10^3/uL (150-450); Red Blood Count 2.14 10^6 /uL (4.18-5.48); Red Cell Distribution Width 15 % (10-15)
[2020-05-28 05:56] LABS: Calcium 8.1 mg/dL (8.6-10.3); EGFR African American 45.6 (>60); EGFR Non-African American 37.7 (>60); Potassium 4.2 mmol/L (3.5-5.0)
[2020-05-28] MEDS ORDERED: Folic Acid 1 mg SYRINGE 0.2 ML SYRINGE IV SCH (09:00)
[2020-05-28] MEDS ORDERED: Midazolam 10 mg/10 ml VIAL 1 mg/ml 10 ml VIAL (10 mg) ONE (09:28)
[2020-05-28] MEDS ORDERED: fentaNYL 100 mcg/2 ml 50 MCG/ML VIAL ONE (09:28)
[2020-05-28] MEDS ORDERED: Iron Sucrose 200 MG in NS 0.9% 100 ml BAG 100 ML IVPB ONE (10:00)
[2020-05-28 12:43] LABS: Hematocrit 22 % (42-52); Hemoglobin 7.2 g/dL (14.0-18.0)
[2020-05-28] MEDS: Folic Acid IV 1 MG in NS 0.9% 50 ML 50 ML IVPB SCH (13:51)
[2020-05-28] MEDS ORDERED: Furosemide 20 mg/2 ml IV VIAL IV SLOW PU ONE (15:16)
[2020-05-28 18:06] LABS: Hematocrit 22 % (42-52); Hemoglobin 7.5 g/dL (14.0-18.0)
[2020-05-29] MEDS: Pantoprazole 80 mg in NS BAG 80 MG/250 ML BAG IV SCH (01:36)
[2020-05-29] MEDS: Morphine 2 MG/ML SYRINGE IV PRN (07:40)
[2020-05-29] MEDS: Iron Sucrose 200 MG in NS 0.9% 100 ml BAG 100 ML IVPB SCH (07:52)
[2020-05-29] MEDS: Folic Acid IV 1 MG in NS 0.9% 50 ML 50 ML IVPB SCH (09:40)
[2020-05-29] MEDS: Cholecalciferol (VIT D3) 1,000 unit TAB PO SCH (09:48)
[2020-05-29] MEDS: Pantoprazole VIAL 40 MG VIAL IV SCH ×2 (09:51→20:39)
[2020-05-29 10:32] LABS: ABS Eosinophils 0.1 10^3/ul (0-0.6); ABS Lymphocytes 0.4 10^3/ul (1.0-4.8); ABS Monocytes 0.3 10^3/ul (0-0.8); ABS Neutrophils 3.3 10^3/ul (1.5-7.7); Eosinophil % 3.1 %; Hematocrit 20 % (42-52); Hemoglobin 6.7 g/dL (14.0-18.0); Lymphocyte % 10.1 %; Mean Corpuscular HGB Conc 34 g/dL (31-36); Mean Corpuscular Hemoglobin 33 pg (27-31); Mean Corpuscular Volume 98 fL (80-94); Mean Platelet Volume 7.6 fL (7.4-10.4); Nucleated Red Blood Cells % 0.2; Platelet Count 220 10^3/uL (150-450); Red Cell Distribution Width 16 % (10-15); White Blood Count 4.2 10^3/uL (3.5-10.8)
[2020-05-29] MEDS ORDERED: Senna TAB 8.6 mg TAB PO PRN (10:52)
[2020-05-29] MEDS ORDERED: Polyethylene Glycol 3350 17 GM PACKET PO PRN (10:52)
[2020-05-29] MEDS: Magnesium Hydroxide LIQ 30 ML UDC PO PRN (18:24)
[2020-05-29 22:22] LABS: Tissue Transglutaminase IgA Ab <1.2 U/mL
[2020-05-30 00:33] LABS: Immunoglobulin A 184 mg/dL (61 - 356)
[2020-05-30 07:05] LABS: Albumin 3.3 g/dL (3.2-5.2); Calcium 8.2 mg/dL (8.6-10.3); Potassium 4.5 mmol/L (3.5-5.0); Total Bilirubin 0.6 mg/dL (0.2-1.0)
[2020-05-30 07:11] LABS: Albumin/Globulin Ratio 1.4 (1-3); EGFR African American 48.8 (>60); EGFR Non-African American 40.3 (>60); Globulin 2.3 g/dL (2-4); Total Protein 5.6 g/dL (6.4-8.9)
[2020-05-30 07:15] LABS: ABS Eosinophils 0.2 10^3/ul (0-0.6); ABS Lymphocytes 0.8 10^3/ul (1.0-4.8); ABS Monocytes 0.5 10^3/ul (0-0.8); ABS Neutrophils 2.6 10^3/ul (1.5-7.7); Eosinophil % 3.9 %; Hematocrit 22 % (42-52); Hemoglobin 7.3 g/dL (14.0-18.0); Mean Corpuscular HGB Conc 34 g/dL (31-36); Mean Corpuscular Hemoglobin 33 pg (27-31); Mean Corpuscular Volume 99 fL (80-94); Mean Platelet Volume 7.8 fL (7.4-10.4); Platelet Count 216 10^3/uL (150-450); Red Blood Count 2.19 10^6 /uL (4.18-5.48); Red Cell Distribution Width 16 % (10-15)
[2020-05-30] MEDS: Iron Sucrose 200 MG in NS 0.9% 100 ml BAG 100 ML IVPB SCH (08:48)
[2020-05-30] MEDS: Pantoprazole VIAL 40 MG VIAL IV SCH ×2 (08:49→20:21)
[2020-05-30] MEDS: Cholecalciferol (VIT D3) 1,000 unit TAB PO SCH (08:55)
[2020-05-30] MEDS: Magnesium Hydroxide LIQ 30 ML UDC PO PRN (08:58)
[2020-05-30] MEDS: Folic Acid IV 1 MG in NS 0.9% 50 ML 50 ML IVPB SCH (10:18)
[2020-05-30 13:06] LABS: Hematocrit 22 % (42-52); Hemoglobin 7.3 g/dL (14.0-18.0)
[2020-05-31 05:15] LABS: ABS Eosinophils 0.2 10^3/ul (0-0.6); ABS Lymphocytes 0.7 10^3/ul (1.0-4.8); ABS Monocytes 0.5 10^3/ul (0-0.8); ABS Neutrophils 2.9 10^3/ul (1.5-7.7); Eosinophil % 3.9 %; Hematocrit 19 % (42-52); Hemoglobin 6.6 g/dL (14.0-18.0); Lymphocyte % 17.1 %; Mean Corpuscular HGB Conc 34 g/dL (31-36); Mean Corpuscular Hemoglobin 33 pg (27-31); Mean Corpuscular Volume 97 fL (80-94); Mean Platelet Volume 7.5 fL (7.4-10.4); Nucleated Red Blood Cells % 0.1; Platelet Count 202 10^3/uL (150-450); Red Blood Count 1.97 10^6 /uL (4.18-5.48); Red Cell Distribution Width 16 % (10-15); White Blood Count 4.3 10^3/uL (3.5-10.8)
[2020-05-31 05:53] LABS: Albumin/Globulin Ratio 1.4 (1-3); Calcium 7.9 mg/dL (8.6-10.3); EGFR African American 45.9 (>60); EGFR Non-African American 37.9 (>60); Globulin 2.2 g/dL (2-4); Potassium 4.6 mmol/L (3.5-5.0); Total Bilirubin 0.4 mg/dL (0.2-1.0); Total Protein 5.2 g/dL (6.4-8.9)
[2020-05-31] MEDS: Iron Sucrose 200 MG in NS 0.9% 100 ml BAG 100 ML IVPB SCH (07:50)
[2020-05-31] MEDS: Cholecalciferol (VIT D3) 1,000 unit TAB PO SCH (08:48)
[2020-05-31] MEDS: Magnesium Hydroxide LIQ 30 ML UDC PO PRN (08:50)
[2020-05-31] MEDS: Pantoprazole VIAL 40 MG VIAL IV SCH ×2 (10:19→20:37)
[2020-05-31] MEDS: Folic Acid IV 1 MG in NS 0.9% 50 ML 50 ML IVPB SCH (10:24)
[2020-05-31] MEDS ORDERED: PEG 3000 GI LAVAGE 1 GALLON PO ONE (13:01)
[2020-05-31] MEDS ORDERED: Furosemide 20 mg/2 ml IV VIAL IV SLOW PU ONE (13:20)
[2020-05-31] MEDS: Cyanocobalamin INJ 1,000 MCG/ML VIAL 1 ML VIAL IM SCH (15:47)
[2020-06-01 08:35] LABS: ABS Eosinophils 0.2 10^3/ul (0-0.6); ABS Lymphocytes 0.6 10^3/ul (1.0-4.8); ABS Monocytes 0.6 10^3/ul (0-0.8); ABS Neutrophils 3.9 10^3/ul (1.5-7.7); Eosinophil % 3.5 %; Hematocrit 26 % (42-52); Hemoglobin 8.6 g/dL (14.0-18.0); Mean Corpuscular HGB Conc 34 g/dL (31-36); Mean Corpuscular Hemoglobin 32 pg (27-31); Mean Corpuscular Volume 94 fL (80-94); Mean Platelet Volume 7.5 fL (7.4-10.4); Platelet Count 203 10^3/uL (150-450); Red Blood Count 2.73 10^6 /uL (4.18-5.48); Red Cell Distribution Width 19 % (10-15); White Blood Count 5.3 10^3/uL (3.5-10.8)
[2020-06-01] MEDS: Cholecalciferol (VIT D3) 1,000 unit TAB PO SCH (08:47)
[2020-06-01] MEDS: Iron Sucrose 200 MG in NS 0.9% 100 ml BAG 100 ML IVPB SCH (08:51)
[2020-06-01] MEDS: Pantoprazole VIAL 40 MG VIAL IV SCH ×2 (08:52→20:20)
[2020-06-01 08:58] LABS: Albumin 3.1 g/dL (3.2-5.2); Albumin/Globulin Ratio 1.3 (1-3); Calcium 8.2 mg/dL (8.6-10.3); EGFR African American 51.6 (>60); EGFR Non-African American 42.7 (>60); Globulin 2.4 g/dL (2-4); Magnesium 1.9 mg/dL (1.9-2.7); Potassium 4.2 mmol/L (3.5-5.0); Total Protein 5.5 g/dL (6.4-8.9)
[2020-06-01] MEDS ORDERED: Midazolam 10 mg/10 ml VIAL 1 mg/ml 10 ml VIAL (10 mg) ONE (09:39)
[2020-06-01] MEDS ORDERED: fentaNYL 100 mcg/2 ml 50 MCG/ML VIAL ONE (09:39)
[2020-06-01] MEDS: Cyanocobalamin INJ 1,000 MCG/ML VIAL 1 ML VIAL IM SCH (14:22)
[2020-06-01] MEDS: Folic Acid IV 1 MG in NS 0.9% 50 ML 50 ML IVPB SCH (14:22)
[2020-06-02 06:25] LABS: ABS Eosinophils 0.1 10^3/ul (0-0.6); ABS Lymphocytes 0.6 10^3/ul (1.0-4.8); ABS Monocytes 0.5 10^3/ul (0-0.8); ABS Neutrophils 3.8 10^3/ul (1.5-7.7); Eosinophil % 1.8 %; Hematocrit 27 % (42-52); Hemoglobin 9.1 g/dL (14.0-18.0); Lymphocyte % 12.4 %; Mean Corpuscular HGB Conc 34 g/dL (31-36); Mean Corpuscular Hemoglobin 32 pg (27-31); Mean Corpuscular Volume 93 fL (80-94); Mean Platelet Volume 7.6 fL (7.4-10.4); Platelet Count 188 10^3/uL (150-450); Red Blood Count 2.87 10^6 /uL (4.18-5.48); Red Cell Distribution Width 19 % (10-15); White Blood Count 5.1 10^3/uL (3.5-10.8)
[2020-06-02] MEDS ORDERED: Lidocaine PATCH 5% PATCH TRANSDERM SCH (09:00)
[2020-06-02] MEDS: Folic Acid IV 1 MG in NS 0.9% 50 ML 50 ML IVPB SCH (09:29)
[2020-06-02] MEDS: Pantoprazole VIAL 40 MG VIAL IV SCH (09:32)
[2020-06-02] MEDS: Cyanocobalamin INJ 1,000 MCG/ML VIAL 1 ML VIAL IM SCH (09:32)
[2020-06-02] MEDS: Cholecalciferol (VIT D3) 1,000 unit TAB PO SCH (09:33)
[2020-06-02 11:54] VITALS: BP 141/68
[2020-06-02] MEDS ORDERED: Lidocaine Patch REMOVE PATCH PATCH OFF SCH (21:00)
[2020-06-04 12:29] LABS: Methylmalonic Acid 0.24 nmol/mL (<=0.40)
== END 2020-06-02 15:45 | disposition home or self-care (01) | DRG 812 ==
LOC: ED 07:38 → MED 13:06
PROVIDERS: ADMIT Hospitalist; ATTEND Internal Medicine